=== PATIENT | male | born 1940 | race Caucasian/White ===

== ENCOUNTER 2022-10-03 14:09 | Observation (INO) | payer OTHER, SELFPAY ==
[2022-10-03] VITALS (17 sets, daily range): BP systolic 150–216; BP diastolic 57–94; PULSE 57–93; RESP 14–20; TEMP 36.6–36.9; O2SAT 94–100; BMI 31.9
--- NOTE | ~2022-10-03 | CT_ITS ---
EXAMINATION: CTA brain carotid DATE: 10/04/2022 12:01 INDICATION: Cerebrovascular accident. Right hemiparesis. TECHNIQUE: Computed tomographic angiography (CTA) of the head was performed without and with 100 mL O mnipaque-350 intravenous contrast. CTA of the neck was performed with intravenous contrast. Automated exposure control and iterative reconstruction technique were employed. The dose-length product was 1 783.04 mGy-cm. Maximum intensity projection and volume rendered 3D-reconstructions were created by gelacio azevedo technologist on a separate workstation. COMPARISON: Head CT 10/03/2022, brain MRI 10/04/2022 FINDINGS: HEAD CTA: There are old infarcts in the left thalamus, bilateral basal ganglia, and posterior left fr ontal lobe. There is an acute infarct in posterior limb left internal capsule. There is no intracrani al hemorrhage or abnormal mass lesion. There are scattered areas of low attenuation in the cerebral w pato matter. The ventricles are normal in size. There is mild mucosal thickening in the ethmoid sinus es. The mastoid air cells are normal. The orbits are normal. The vertebral arteries are codominant. T here is no significant stenosis of basilar artery or the posterior cerebral arteries. There is modera te stenosis of supraclinoid right internal carotid artery. There is no significant stenosis of intrac ranial left internal carotid artery. There is no significant stenosis of the anterior or middle cereb ral arteries. Anterior communicating artery is normal. The posterior communicating arteries are nabil l. There is no aneurysm. NECK CTA: There is mild emphysema. There are no pathologically enlarged lymph nodes. There is no sign ificant stenosis of the vertebral arteries. There is plaque in the proximal internal carotid arteries . There is 37% stenosis of the proximal right internal carotid artery relative to normal distal arter y lumen diameter (NASCET criteria). There is 66% stenosis of the proximal left internal carotid arter y relative to normal distal artery lumen diameter. There is mild cervical spondylosis. There is a chr onic compression fracture of T4. There is mild thoracic spondylosis. IMPRESSION: 1. Acute infarct in posterior limb left internal capsule. 2. 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 3. Moderate nonspecific cerebral white matter disease, which likely represents chronic small vessel i schemic disease. 4. Focal moderate stenosis of the supraclinoid right internal carotid artery. 5. 37% stenosis of the proximal right internal carotid artery relative to normal distal artery lumen diameter (NASCET criteria). 6. 66% stenosis of the proximal left internal carotid artery relative to normal distal artery lumen d iameter. Reviewed, dictated and finalized at location A. IMPRESSION: 1. Acute infarct in posterior limb left internal capsule. 2. 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 3. Moderate nonspecific cerebral white matter disease, which likely represents chronic small vessel ischemic disease. 4. Focal moderate stenosis of the supraclinoid right internal carotid artery. 5. 37% stenosis of the proximal right internal carotid artery relative to nabil l distal artery lumen diameter (NASCET criteria). 6. 66% stenosis of the proximal left internal carotid artery relative to normal distal artery lumen diameter.
--- NOTE | ~2022-10-03 | MR_ITS ---
EXAMINATION: MR brain/brain stem wo/w con DATE: 10/04/2022 08:20 INDICATION: Cerebrovascular accident. Right hemiparesis. Slurred speech. TECHNIQUE: Magnetic resonance imaging (MRI) of the brain and brainstem was performed without and with 20 mL MultiHance intravenous contrast. COMPARISON: Head CT 10/03/2022 FINDINGS: There is an acute infarct in posterior limb left internal capsule. There is no intracranial hemorrhage or abnormal mass lesion. There are old infarcts in the left thalamus and bilateral basal ganglia. There are scattered areas of nonspecific increased T2-weighted signal intensity in the cereb ral white matter. There is a small old infarct in posterior left frontal lobe. The ventricles are nor mal in size. The orbits are normal. The paranasal sinuses are clear. There is a small left mastoid ef fusion. IMPRESSION: 1. Acute infarct in posterior limb left internal capsule. 2. 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 3. Moderate nonspecific cerebral white matter disease, which likely represents chronic small vessel i schemic disease. Reviewed, dictated and finalized at location D. IMPRESSION: 1. Acute infarct in posterior limb left internal capsule. 2. 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 3. Moderate nonspecific cerebral white matter disease, which likely represents chronic small vessel ischemic disease.
--- NOTE | ~2022-10-03 | US_ITS ---
EXAMINATION: US carotid duplex BI DATE: 10/04/2022 09:12 INDICATION: Acute infarct in left internal capsule. TECHNIQUE: Grayscale, color Doppler, and pulsed Doppler images of the cervical carotid arteries were obtained. The degree of vessel stenosis is placed in one of the following categories: normal, <50%, 5 0-69%, >=70% but less than near-occlusion, near-occlusion, or total occlusion. Note that percent sten osis relative to normal distal artery lumen diameter is indirectly measured from velocity measurement s as described by Serafin, et al. Radiology 2003; 229:340-346. COMPARISON: None. FINDINGS: RIGHT: The right common carotid artery (CCA) peak systolic velocity (PSV) is 103 cm/s. The right internal ca rotid artery (ICA) PSV is 151 cm/s. The right ICA end-diastolic velocity (EDV) is 14 cm/s. The right ICA/CCA PSV ratio is 1.5. Grayscale and color Doppler images yield an estimate of <50% diameter reduc tion from plaque in the ICA. There is antegrade flow in the right vertebral artery. LEFT: The left CCA PSV is 127 cm/s. The left ICA PSV is 220 cm/s. The left ICA EDV is 17 cm/s. The left ICA /CCA PSV ratio is 1.7. Grayscale and color Doppler images yield an estimate of >=50% diameter reducti on from plaque in the ICA. There is antegrade flow in the left vertebral artery. IMPRESSION: 1. <50% stenosis in the right internal carotid artery. 2. 50-69% stenosis in the left internal carotid artery. Reviewed, dictated and finalized at location D.
--- NOTE | ~2022-10-03 | CT_ITS ---
EXAMINATION: CT brain wo con DATE: 10/03/2022 15:21 INDICATION: right sided weakness, AMS . TECHNIQUE: Computed tomography (CT) of the head was performed without intravenous contrast. The mA wa s adjusted according to patient size. Iterative reconstruction technique was employed. The dose-lengt h product was 681.00 mGy-cm. COMPARISON: None. FINDINGS: No acute intracranial hemorrhage or extra-axial fluid collection. No hydrocephalus, mass, or herniation. No acute ischemic infarct. Unremarkable dural venous sinus attenuation. No acute osseous abnormality. The aerated spaces are clear. Moderate atrophy and chronic white matter change. Atherosclerotic intracranial calcification. Old foc al left periventricular white matter infarct. Old lacunar infarcts involving the right caudate head a nd left basal ganglia/thalamus. IMPRESSION: No acute intracranial process. Reviewed, dictated and finalized at location K.
--- NOTE | ~2022-10-03 | XR_ITS ---
EXAMINATION: XR chest 1V portable Exam Date/Time: 10/03/2022 14:52 CDT HISTORY: AMS, right sided weakness, HX OPEN HEART 2004 Comparison: None available. RESULT: Lines, tubes, and devices: Fractured superior sternotomy wire. Mediastinal surgical clips. Lungs and pleura: Streaky left lower lung opacities, likely atelectasis/scar. Cardiomediastinal silhouette: Stable. Other: No acute osseous or upper abdominal finding. IMPRESSION: No acute cardiopulmonary process. Reviewed, dictated and finalized at location K.
--- NOTE | 2022-10-03 14:17 | ECG_ITS ---
Measurements Intervals [place] Rate: 56 P: 40 RI: 168 QRS: 69 QRSD: 111 T: 94 QT: 415 QTc: 401 Interpretive Statements SINUS BRADYCARDIA WITH OCCASIONAL VENTRICULAR PREMATURE COMPLEXES MODERATE INTRAVENTRICULAR CONDUCTION DELAY [105+ ms QRS DURATION, 80+ ms Q/S IN V1/V2, NO Q AND 60+ ms R IN I/aVL/V5/V6] NO PREVIOUS ECG AVAILABLE FOR COMPARISON Electronically Signed On 10-04-2022 11:51:14 CDT by Nkechi Horn M.D.
[2022-10-03 14:44] LABS: Basophils Absolute Auto 0.1 K/mm3 (0.0-0.1); Basophils Percent Auto 0.6 % (0.2-1.2); Eosinophils Absolute Auto 0.8 K/mm3 (0-0.3); Eosinophils Percent Auto 9.8 % (0-4.4); Hematocrit 46.5 % (42.0-52.0); Hemoglobin 15.6 g/dL (14.0-18.0); Immature Granulocyte Absolute 0.03 K/mm3 (0.00-0.031); Immature Granulocyte Percent A 0.4 % (0-0.5); Lymphocytes Absolute Auto 2.42 K/mm3 (0.9-3.2); Lymphocytes Percent Auto 30.3 % (18.3-44.2); Mean Corpuscular HGB Conc 33.5 g/dl (32-36); Mean Corpuscular Hemoglobin 31.6 pg (26-34); Mean Corpuscular Volume 94.1 fl (80-100); Mean Platelet Volume 11.4 fl (7.4-10.4); Monocytes Absolute Auto 0.7 K/mm3 (0.1-0.6); Monocytes Percent Auto 8.9 % (2.6-8.5); Platelet Count Result 144 k/mm3 (150-375); Red Blood Count 4.94 M/mm3 (4.6-6.20)
[2022-10-03 14:56] LABS: Alanine Aminotransferase 25 U/L (6-50); Albumin Level 4.1 g/dL (3.5-5.1); Alkaline Phosphatase 60 U/L (38-126); Anion Gap 5 mmol/L (8-16); Aspartate Amino Transferase 24 U/L (17-59); Bilirubin,Total 0.6 mg/dL (0.2-1.3); Blood Urea Nitrogen 30 mg/dL (9-20); Calcium 9.2 mg/dL (8.4-10.2); Carbon Dioxide 29 mmol/L (22-30); Chloride 101 mmol/L (98-107); Estimated CRCL calculation 39 ml/min; Estimated Glomerular Filt Rate 42; Glucose 157 mg/dL (65-110); Potassium 4.3 mmol/L (3.4-5.0); Sodium 135 mmol/L (137-145)
[2022-10-03 15:07] LABS: Troponin I < 0.012 ng/mL (0.000-0.034)
[2022-10-03 15:14] LABS: INR 1.1; Partial Thromboplastin Time 26.4 SECONDS (22.3-36.8); Prothrombin Time 13.3 Seconds (11.1-14.7)
--- NOTE | 2022-10-03 15:42 | ED.NEUROSD ---
HPI - Neuro Symptoms/Deficit General Chief Complaint: Neuro Symptoms/Deficit Stated Complaint: AMS, RIGHT side weakness (LKN yesterday) Time Seen by Provider: 10/03/22 14:59 Source: patient and family Mode of arrival: ambulatory Limitations: no limitations History of Present Illness HPI Narrative: 82-year-old with a history of hypertension, diabetes, hypercholesterolemia brought in by his daughter with complaints of slurred speech on and off since Tuesday. Patient's daughter mentions that on Tuesday evening she called him his speech was slurred and she thought he just woke up from sleep, called couple hours later and it was clearly shows that she has again went to check on him today noticed mild right-sided facial droop and drooling associated with with slurred speech. He denies any headache. He denies any weakness on any particular side. Onset (ago): day(s) (2) Timing confirmed by: family member Location: right face History of same: Yes Severity: mild Quality: intermittent Relieving factors: none Exacerbating factors: none Associated symptoms: denies other symptoms Review of Systems Review of Systems: All systems reviewed & are unremarkable except as noted in HPI and below Constitutional: Constitutional: Reports no additional constitutional complaints Eyes: Eyes: Reports no additional eye complaints ENT: Reports system reviewed and no additional complaints, except as documented Cardiovascular: Cardiovascular: Reports no additional cardiovascular complaints Respiratory: Respiratory: Reports no additional respiratory complaints Musculoskeletal: Musculoskeletal: Reports no additional musculoskeletal complaints Neurologic: Reports as per HPI Psychiatric: Psychiatric: Reports no additional psychiatric complaints Exam Narrative: GENERAL: Well-appearing, well-nourished, and in no acute distress. HEAD: Normocephalic, atraumatic. EYES: PERRLA and EOMI. ENT: Nares clear, no rhinorrhea or epistaxis. Mucous membranes moist. NECK: Supple. CHEST: Clear to auscultation. No respiratory distress. HEART: Regular rate and rhythm. No murmur heard. Normal peripheral pulses. ABDOMEN: Soft, nontender, nondistended, normal active bowel sounds. EXTREMITIES: Normal range of motion. No edema. SKIN: Warm, dry, no rash. NEURO: No focal deficits. Alert and oriented x3. Very subtle facial droop on the right PSYCH: Normal mood and affect. Course Course Emergency Course: Patient upon arrival is wide awake alert answers all the questions appropriately. Patient CT of the head was performed which did not show any evidence of acute stroke or bleed his lab work looks unremarkable we will admit him to the hospital for further work-up. Discussed with Dr. Ward will see the patient in consult Vital Signs Vital signs: Vital Signs Temperature 36.6 C 10/03/22 14:16 Pulse Rate 58 L 10/03/22 14:16 Respiratory Rate 20 10/03/22 14:16 Blood Pressure 216/61 H 10/03/22 14:16 Pulse Oximetry 100 10/03/22 14:16 Oxygen Delivery Room Air 10/03/22 14:16 Temperature 36.6 C 10/03/22 14:16 Pulse Rate 58 L 10/03/22 14:16 Respiratory Rate 20 10/03/22 14:16 Blood Pressure 216/61 H 10/03/22 14:16 Pulse Oximetry 100 10/03/22 14:16 Oxygen Delivery Room Air 10/03/22 14:16 MDM - Neuro Symptoms/Deficit MDM Narrative Medical decision making narrative: 82-year-old with a history of diabetes, hypercholesterolemia having slurred speech. We will do a stroke work-up Differential Diagnosis Differential diagnosis: Likely cerebrovascular accident and transient cerebral ischemia Medical Records Attestation: I reviewed the patient's medical records. Lab Data Attestation: I reviewed the patient's lab results. 10/03/22 14:33 10/03/22 14:32 Labs: Lab Results 10/03/22 10/03/22 10/03/22 Range/Units 14:32 14:32 14:33 WBC 8.0 (4.5-10.0) K/mm3 RBC 4.94 (4.6-6.20) M/mm3 Hgb 15.6 (14.0-18.0
--- NOTE | 2022-10-03 16:47 | PM.IMHP ---
H&P: HPI History of Present Illness Date/Time: 10/03/22 16:47 Chief Complaint: Neurological symptoms/deficit Narrative: This is a 82-year-old male patient who has a history of hypertension, diabetes, and hyperlipidemia. The patient was brought in by his daughter due to complaining of slurred speech on and off since this past Tuesday. The patient's daughter called him on Tuesday noticed that his speech was slurred and thought that maybe the patient had just awoken from a nap. A couple hours later his speech was clear. Today the patient's speech was slurred again and the daughter went to check on him and noticed that he had some mild right-sided facial droop and was drooling with the slurred speech. The patient also complained of some right upper and right lower extremity weakness. At the time of my assessment the patient's speech was clear but slow. The daughter noted that his speech is not typically slow like that. Sodium 135. Creatinine 1.6 with no previous labs for comparison. Patient's blood sugars 251. Head CT was read as no acute intracranial process. Chest x-ray shows no acute cardiopulmonary process. The patient is being admitted to observation status on the date of service of 10/03/2022. Review of Systems Review of Systems: All systems reviewed & are unremarkable except as noted in HPI and below Constitutional: Constitutional: Reports as per HPI and Reports no additional constitutional complaints Eyes: Eyes: Reports as per HPI and Reports no additional eye complaints ENT: Reports system reviewed and no additional complaints, except as documented and Reports Normal hearing present Cardiovascular: Cardiovascular: Reports no additional cardiovascular complaints Respiratory: Respiratory: Reports no additional respiratory complaints and Reports no additional respiratory complaints Gastrointestinal: Gastrointestinal: Reports as per HPI and Reports no additional gastrointestinal complaints Musculoskeletal: Musculoskeletal: Reports no additional musculoskeletal complaints Integumentary/Breasts: Skin/Breast: Reports system reviewed and no additional complaints, except as docu and Reports as per HPI Neurologic: Reports system reviewed and no additional complaints, except as documented, Reports as per HPI and Reports Normal hearing present Psychiatric: Psychiatric: Reports no additional psychiatric complaints and Reports as per HPI Endocrine: Endocrine: Reports no additional endocrine complaints Hematologic/Lymphatic: Hematologic/Lymphatic: Reports no additional hematologic/lymphatic complaints Allergic/Immunologic: Allergic/Immunologic: Reports no additional allergic/immunologic complaints [facility] Past Medical History Medical History (Updated 10/03/22 @ 21:17 by Marce Glass NP) Chronic GERD DM2 (diabetes mellitus, type 2) Hyperlipidemia Hypertension Surgical History Surgical History (Updated 10/03/22 @ 16:51 by Marce Glass NP) S/P CABG x 5 Family History Family History (Updated 10/03/22 @ 16:52 by Marce Glass NP) Sibling Hypertension Heart disease Diabetes mellitus Daughter Cerebrovascular accident Social History Social History (Updated 10/03/22 @ 21:09 by Marce Glass NP) Social History: He has 2 daughters and lives with his step son . He is . Code status full code Smoking packs per day: 1.5 Smoking cigarettes per day: 30.0 Years smoked: 30 Smoking pack-years: 45.00 Smoking status: Current every day smoker Tobacco type: cigarettes Meds Home Medications and Allergies Home Medications Medication Instructions Recorded Confirmed Type amlodipine 10 mg tablet 10 mg PO DAILY 10/03/22 History aspirin 81 mg tablet 81 mg PO DAILY 10/03/22 History cetirizine 10 mg tablet 10 mg PO DAILY 10/03/22 History chlorthalidone 50 mg tablet 50 mg PO DAILY 10/03/22 History cholecalciferol (vitamin D3) 25 25 mcg PO DAILY 10/03/22 History mcg (1,000
--- NOTE | 2022-10-03 19:57 | ADMGEN ---
This patient, Jonathan Trinh, was admitted to Medical Room 347-. Patient/family oriented to hospital policies and general routines including ID bracelet, bed and alarms, visiting hours, pain management, procedures, bathroom and other care routines, personal items, smoking policy, room service/diet, and visiting hours. Information on how to activate the Rapid Response Team has been discussed. Patient/Family are encouraged to report perceived risks to care and to ask questions if they do not understand what they are told or what they should do.
[2022-10-03 20:45] LABS: Glucose Point of Care 251 mg/dl (65-105)
[2022-10-03] MEDS: SODIUM CHLORIDE 0.9% IV 1,000 ML 75 ML IV CONT (21:00)
[2022-10-03] MEDS: INSULIN ASPART (*BKC) 100 UNITS/ML SUB-Q (23:04)
[2022-10-04] VITALS: PULSE 55
[2022-10-04 04:00] VITALS: PULSE 60
[2022-10-04 05:40] VITALS: BP 167/88; PULSE 67; RESP 16; TEMP 36.8; O2SAT 97
[2022-10-04 06:29] LABS: Basophils Absolute Auto 0.1 K/mm3 (0.0-0.1); Basophils Percent Auto 0.7 % (0.2-1.2); Eosinophils Absolute Auto 0.7 K/mm3 (0-0.3); Eosinophils Percent Auto 9.9 % (0-4.4); Hematocrit 44.2 % (42.0-52.0); Hemoglobin 14.6 g/dL (14.0-18.0); Immature Granulocyte Absolute 0.03 K/mm3 (0.00-0.031); Immature Granulocyte Percent A 0.4 % (0-0.5); Immature Platelet Fraction Pct 9.5 % (0.9-11.2); Lymphocytes Absolute Auto 2.03 K/mm3 (0.9-3.2); Lymphocytes Percent Auto 29.7 % (18.3-44.2); Mean Corpuscular Hemoglobin 31.2 pg (26-34); Mean Corpuscular Volume 94.4 fl (80-100); Mean Platelet Volume 11.8 fl (7.4-10.4); Monocytes Absolute Auto 0.6 K/mm3 (0.1-0.6); Monocytes Percent Auto 8.6 % (2.6-8.5); Neutrophils Absolute Auto 3.5 K/mm3 (1.3-6.7); Neutrophils Percent Auto 50.7 % (45.5-73.1); Platelet Count Result 127 k/mm3 (150-375); Red Blood Count 4.68 M/mm3 (4.6-6.20); Red Cell Distribution Width 12.6 % (11.5-14.5); White Blood Count 6.8 K/mm3 (4.5-10.0)
[2022-10-04 06:38] LABS: Anion Gap 5 mmol/L (8-16); Blood Urea Nitrogen 25 mg/dL (9-20); Calcium 9.1 mg/dL (8.4-10.2); Carbon Dioxide 29 mmol/L (22-30); Chloride 102 mmol/L (98-107); Estimated CRCL calculation 45 ml/min; Estimated Glomerular Filt Rate 49; Glucose 140 mg/dL (65-110); Magnesium 1.5 mg/dL (1.6-2.3); Potassium 4.1 mmol/L (3.4-5.0); Sodium 136 mmol/L (137-145)
[2022-10-04 06:43] LABS: Hemoglobin A1C 7.6 % (<5.7)
--- NOTE | 2022-10-04 08:05 | PCPTNOTE ---
attempted PT eval at 800, pt was out of room having MRI;
--- NOTE | 2022-10-04 08:42 | PCOTNOTE ---
Attempted to see pt. for occupational therapy evaluation. Pt. away from room at this time for testing, nursing aware. Following
[2022-10-04 08:56] LABS: Glucose Point of Care 166 mg/dl (65-105)
[2022-10-04 11:00] VITALS: PULSE 116; RESP 16; O2SAT 94
[2022-10-04] MEDS: ASPIRIN 81 MG CHEWABLE TABLET 324 MG PO (11:01)
--- NOTE | 2022-10-04 11:10 | WPDNEURCNPN ---
Consult date: 10/04/22 HPI: Jonathan Trinh is a 82 year old maleAdmitted to the hospital through the emergency room for the complaints of right sided weakness since yesterday patient was seen by the ER physician at 2:59 p.m. on October 03, 2022 and he arrived to the Emergency Room ambulatory with a history of 1. Hypertension 2. Diabetes mellitus 3. Hypercholesteremia was brought to the ER by his daughter with complaints of slurred speech on and off since Tuesday she mention to the ER that she called him on Tuesday his speech was slurred and he thought he just woke up from sleep she call couple of hours later and it was clearly showing that she has checked him on the day of visit to the ER and noted mild right-sided facial droop and drooling along with slurred speech but without any associated headaches on initial evaluation in the emergency room his vital signs were stable except the blood pressure 216/61 with a pulse ox was 100 his CBC was normal BMP was mildly abnormal with a sodium 135 blood sugar 157 and BUN 30 initial chest x-ray was negative CT scan of the head was negative EKG with bradycardia. MRI of the brain documented acute infarct in the posterior limb left internal capsule old infarcts involving left thalamus bilateral basal ganglia and posterior left frontal lobe in addition to moderate nonspecific white matter disease likely representing chronic chronic ischemic changes. And the Doppler study of the carotid documented less than 50% stenosis in the right internal carotid artery but 50 to 69% stenosis in left internal carotid artery. Review of Systems Review of Systems: All systems reviewed & are unremarkable except as noted in HPI and below [facility] [place] Past Medical History Medical History (Updated 10/03/22 @ 21:17 by Marce Glass NP) Chronic GERD DM2 (diabetes mellitus, type 2) Hyperlipidemia Hypertension Surgical History Surgical History (Updated 10/03/22 @ 16:51 by Marce Glass NP) S/P CABG x 5 Family History Family History Sibling Hypertension Heart disease Diabetes mellitus Daughter Cerebrovascular accident Social History Social History (Updated 10/03/22 @ 21:09 by Marce Glass NP) Social History: He has 2 daughters and lives with his step son . He is . Code status full code Smoking packs per day: 1.5 Smoking cigarettes per day: 30.0 Years smoked: 30 Smoking pack-years: 45.00 Smoking status: Current every day smoker Tobacco type: cigarettes Alcohol intake: never Substance use: never Lack of Transportation: No Lack of Food: Never True Current Housing: I Have Housing Concerned About Future Housing: No Difficulty Paying Gas/Electric Bills: No Difficulty Paying for Meds: No Currently Unemployed: No Education: High School Diploma/GED Difficulty w/ Childcare or Family Care: No Spiritual care concerns: No Meds Home Medications and Allergies Home Medications Medication Instructions Recorded Confirmed Type acetaminophen 500 mg tablet 500 mg PO Q6H PRN Pain (Scale 10/03/22 10/03/22 History (Tylenol Extra Strength) Score 1-3) amlodipine 10 mg tablet 10 mg PO QHS 10/03/22 10/03/22 History aspirin 81 mg tablet 81 mg PO DAILY 10/03/22 10/03/22 History cetirizine 10 mg tablet 10 mg PO QHS 10/03/22 10/03/22 History chlorthalidone 50 mg tablet 50 mg PO DAILY 10/03/22 10/03/22 History cholecalciferol (vitamin D3) 25 25 mcg PO DAILY 10/03/22 10/03/22 History mcg (1,000 unit) capsule glipizide 5 mg tablet 5 mg PO DAILY 10/03/22 10/03/22 History lisinopril 40 mg tablet 40 mg PO QAM 10/03/22 10/03/22 History magnesium oxide 400 mg PO DAILY 10/03/22 10/03/22 History metoprolol tartrate 50 mg tablet 50 mg PO BID 10/03/22 10/03/22 History omeprazole 20 mg tablet,delayed 20 mg PO BID 10/03/22 10/03/22 History release pravastatin 40 mg tablet 40 mg PO 3XW 10/03/22 10/03/22 History spironolactone 25
--- NOTE | 2022-10-04 11:17 | PM.IMPN ---
Progress Note: A&P Assessment and Plan (1) Hyperlipidemia: Code(s): E78.5 - Hyperlipidemia, unspecified Status: Acute Assessment and Plan: Order lipid panel Continue home statin (2) DM2 (diabetes mellitus, type 2): Code(s): E11.9 - Type 2 diabetes mellitus without complications Status: Acute Assessment and Plan: Watch sugars in hospital Accuchecks SSI Continue meal time insulin (3) Chronic GERD: Code(s): K21.9 - Gastro-esophageal reflux disease without esophagitis Status: Acute Assessment and Plan: Continue PPI Chronic and stable (4) Hypertension: Code(s): I10 - Essential (primary) hypertension Status: Acute Assessment and Plan: Watch bp meds BP medications to continue in hospital (5) Cerebrovascular accident: Code(s): I63.9 - Cerebral infarction, unspecified Status: Acute Assessment and Plan: Continue home ASA add plavix to regime Stroke work up - MRI , US carotids, ECHO Neurology consulted PT/OT/ST Plan H/ O of Tobacco abuse Long discussion about quitting smoking Hopeful DC tomorrow home with home health services Subjective Date/time seen: 10/04/22 11:17 2-year-old male patient who has a history of hypertension, diabetes, and hyperlipidemia.? The patient was brought in by his daughter due to complaining of slurred speech on and off since this past Tuesday.? The patient's daughter called him on Tuesday noticed that his speech was slurred and thought that maybe the patient had just awoken from a nap. Pt had stroke work up here which shows new infarct, with some old infarcts as well Pt had US of carotids which are negative echo result is awaiting Pt has history of HTN and DM and is a smoker advised to quit smoking Review of Systems Review of Systems: R sided mild weakness in leg more than arm Speech slurred Exam Const: General: cooperative, healthy appearing, comfortable, no acute distress, well developed, alert, awake, Physically active, average body habitus, well nourished and overweight Resp: Effort & Inspection: normal respiratory effort Auscultation: clear to auscultation bilaterally Cardio: Palpation: normal PMI Rate: regular rate Rhythm: regular rhythm Heart sounds: S1 normal heart sound present and S2 normal heart sound present Peripheral pulses: Peripheral pulses 2+ throughout GI: Inspection: normal to inspection Auscultation: normal bowel sounds Rectal Exam: deferred Back/Spine/Pelvis: Cervical Spine: cervical ROM normal Skin: General skin exam: normal color Lesions: no lesions Rashes: no rashes Trauma: no lacerations or abrasions Wounds: no wounds Hair: normal Nails: normal Neuro: Other: The patient has mild right facial droop and mild weakness to right upper and right lower extremity. Speech not so clear Extrem: General: normal to inspection Right upper extremity: normal to inspection and shoulder/upper arm Left upper extremity: normal to inspection and shoulder/upper arm Right lower extremity: edema Details: 2+ Left lower extremity: edema Details: 2+ Objective Data Vital Signs Vital Signs: Vital Signs - 24 hr 10/03/22 14:16 10/03/22 15:02 10/03/22 15:34 Temperature 36.6 C Pulse Rate 58 L 72 80 Respiratory Rate 20 14 16 Blood Pressure 216/61 H 171/57 H 192/67 H Pulse Oximetry 100 96 99 Oxygen Delivery Room Air 10/03/22 15:47 10/03/22 16:02 10/03/22 16:17 Temperature Pulse Rate 90 93 90 Respiratory Rate 16 14 16 Blood Pressure 177/66 H 180/63 H 173/64 H Pulse Oximetry 98 97 98 Oxygen Delivery 10/03/22 16:45 10/03/22 17:47 10/03/22 18:01 Temperature Pulse Rate 74 70 70 Respiratory Rate 17 15 18 Blood Pressure 150/72 H 176/67 H Pulse Oximetry 97 95 94 Oxygen Delivery 10/03/22 18:02 10/03/22 18:15 10/03/22 18:30 Temperature Pulse Rate 60 61 60 Respiratory Rate 15 16 15 Blood Pressure Pulse Oximetry 97 9
[2022-10-04 12:44] LABS: Glucose Point of Care 213 mg/dl (65-105)
--- NOTE | 2022-10-04 13:01 | PM.DS ---
DS: Admitting Diagnosis Discharge Date 10/04/2022 Admitting Diagnosis Neurological symptoms/deficit DS: Discharge Diagnosis Discharge Diagnosis (1) Hyperlipidemia: Code(s): E78.5 - Hyperlipidemia, unspecified Status: Acute Assessment and Plan: Continue home statin (2) DM2 (diabetes mellitus, type 2): Code(s): E11.9 - Type 2 diabetes mellitus without complications Status: Acute Assessment and Plan: continue oral hypoglycemic agents (3) Chronic GERD: Code(s): K21.9 - Gastro-esophageal reflux disease without esophagitis Status: Acute Assessment and Plan: Continue PPI Chronic and stable (4) Hypertension: Code(s): I10 - Essential (primary) hypertension Status: Acute Assessment and Plan: continue home BP medications (5) Cerebrovascular accident: Code(s): I63.9 - Cerebral infarction, unspecified Status: Acute Assessment and Plan: Stroke work up - MRI , US carotids, ECHO completed MRI showed -Acute infarct in posterior limb left internal capsule. 2. Old infarcts involving the left thalamus, bilateral basal ganglia, and posterior left frontal lobe. 3. Moderate nonspecific cerebral white matter disease, which likely represents chronic small vessel ischemic disease. ASA 325 mg po and plavix started Neurology consulted PT/OT/ST Pt can discharge with home health nurses Adviced to quit smoking H/ o of tobacco abuse Pt to follow with vascular surgery he will call for an apt for carotid stenosis ?50-69% stenosis in the left internal carotid artery. Pt to follow with neurology MD in 2-3 weeks time DS: Summary Hospital Course Hospital Course: 82-year-old male patient who has a history of hypertension, diabetes, and hyperlipidemia.? The patient was brought in by his daughter due to complaining of slurred speech on and off since this past Tuesday.? The patient's daughter called him on Tuesday noticed that his speech was slurred and thought that maybe the patient had just awoken from a nap.? A couple hours later his speech was clear.? Today the patient's speech was slurred again and the daughter went to check on him and noticed that he had some mild right-sided facial droop and was drooling with the slurred speech.? The patient also complained of some right upper and right lower extremity weakness.? At the time of my assessment the patient's speech was clear but slow.? The daughter noted that his speech is not typically slow like that.? Sodium 135.? Creatinine 1.6 with no previous labs for comparison.? Patient's blood sugars 251.? Head CT was read as no acute intracranial process. Pt had stroke work up - MRI , US carotids, ECHO completed MRI showed -Acute infarct in posterior limb left internal capsule. 2. Old infarcts involving the left thalamus, bilateral basal ganglia, and posterior left frontal lobe. 3. Moderate nonspecific cerebral white matter disease, which likely represents chronic small vessel ischemic disease. ASA 325 mg po and plavix started Neurology consulted PT/OT/ST Pt can discharge with home health nurses Adviced to quit smoking H/ o of tobacco abuse Pt to follow with vascular surgery he will call for an apt for carotid stenosis ?50-69% stenosis in the left internal carotid artery. Pt to follow with neurology MD in 2-3 weeks time Time Spent with Patient Time attestation: Total time spent providing and/or coordinating discharge services:40 minutes on day of DC Exam Const: General: cooperative, healthy appearing, comfortable, no acute distress, well developed, alert, awake, Physically active, average body habitus, well nourished and overweight Nutritional Appearance: average body habitus, well nourished and overweight Orientation/consciousness: oriented to person, oriented to place, oriented to time and patient oriented x3 Limitations: no limitations HENMT: Head: normal to inspection, No palpable skull fractur
[2022-10-04] MEDS: INSULIN ASPART (*BKC) 100 UNITS/ML SUB-Q (13:05)
[2022-10-04] MEDS: lisinopriL 20 MG TABLET 40 MG PO (13:13)
[2022-10-04] MEDS: PRAVASTATIN SODIUM 20 MG TABLET 40 MG PO (13:13)
[2022-10-04] MEDS: CHLORTHALIDONE 25 MG TABLET 50 MG PO (13:14)
[2022-10-04] MEDS: SPIRONOLACTONE 25 MG TABLET PO (13:14)
[2022-10-04 13:16] VITALS: PULSE 116
[2022-10-04] MEDS: METOPROLOL TARTRATE 50 MG TAB PO (13:16)
[2022-10-04] MEDS: PANTOPRAZOLE 40 MG TABLET PO (13:17)
[2022-10-04] MEDS: CLOPIDOGREL BISULFATE 75 MG TABLET PO (13:17)
--- NOTE | 2022-10-04 13:27 | WPDNEURCNPN ---
Assessment and Plan Assessment and plan (1) Cerebrovascular accident: Code(s): I63.9 - Cerebral infarction, unspecified Status: Acute (2) Left carotid stenosis: Code(s): I65.22 - Occlusion and stenosis of left carotid artery Status: Acute Plan Considering the bihemispheric disease and abnormal Doppler study of the carotid CTA of the brain was obtained which revealed acute infarct in the posterior limb of the left internal capsule, old infarct involving the left thalamus bilateral basal ganglia and posterior left frontal lobe in addition to moderate nonspecific white matter disease, focal moderate stenosis of the supraclinoid right internal carotid artery, 37% stenosis of the proximal right internal carotid artery relatively normal distal and 60 psych % of stenosis of the left internal carotid artery. These findings were discussed with them in front of his family particularly the daughter and they were advised the need to be seen by the vascular surgeon they had 1 in their mind there will be discharged from here to go to that particular physician though we did offer them to choice of going to [facility] or [facility]. In the meantime he will be continued on aspirin 81 mg daily and Plavix 75 mg daily in addition to all his other medication. And I personally inform Dr chang. Consult date: 10/04/22 Reason for consult: 82 years old right-handed male admitted to the hospital through the emergency room for the complaints of right-sided weakness since yesterday. Patient was seen by the ER physician at 2:59 p.m. on October 03 and he arrived to the ER ambulatory with a history of 1. Hypertension 2. Diabetes mellitus 3. Hypercholesteremia he was brought to the ER by his daughter with complaints of slurred speech on and off since Tuesday she mention to the ER physician that she called him on Tuesday his speech was slurred and he thought he just woke up from sleep then she called him a couple of hours later and it was clearly showing. She checked on him on the day of visit the ER and noted mild right-sided facial droop with drooling along with slurred speech but without any associated headache. On initial evaluation in the emergency room his vital signs were stable, the blood pressure was 216/61 with a pulse ox 100, CBC was normal BMP was mildly abnormal with a sodium of 135 blood sugar of 157 and BUN of 30, initial chest x-ray was negative, CT scan of the head was negative, EKG was with bradycardia definitely no atrial fibrillation. MRI of the brain documented acute infarct in the posterior limb of the left internal capsule, and old infarcts involving the left thalamus, bilateral basal ganglia, and posterior left frontal lobe in addition to the moderate nonspecific white matter disease likely representing chronic ischemic changes Doppler study of carotid documented less than 50% stenosis on the right side and 50 to 69% on the left side Review of Systems Review of Systems: All systems reviewed & are unremarkable except as noted in HPI and below PMFSH Past Medical History Medical History (Updated 10/04/22 @ 13:38 by Sky Hardy MD) Chronic GERD DM2 (diabetes mellitus, type 2) Hyperlipidemia Hypertension Surgical History Surgical History (Updated 10/03/22 @ 16:51 by Marce Glass NP) S/P CABG x 5 Family History Family History Sibling Hypertension Heart disease Diabetes mellitus Daughter Cerebrovascular accident Social History Social History (Updated 10/03/22 @ 21:09 by Marce Glass NP) Social History: He has 2 daughters and lives with his step son . He is . Code status full code Smoking packs per day: 1.5 Smoking cigarettes per day: 30.0 Years smoked: 30 Smoking pack-years: 45.00 Smoking status: Current every day smoker Tobacco type: cigarettes Alcohol intake: never Substance use: sandro
--- NOTE | 2022-10-05 14:13 | PC.NURSE ---
Spoke with Dr. Hardy about patients aspirin dose. Family was concerned that the order stated to take 4 of the [address] Hardy said to take one 81 mg ASA and the plavix dose that was ordered daily.
== END 2022-10-04 14:00 | disposition home health service (06) ==
LOC: ANHED 16:27 → ANH3MED 10-04 06:24
PROVIDERS: Emergency Medicine; Nurse Practitioner; Admitting Provider Family Medicine; Emergency Provider Family Medicine; Visit Provider Family Medicine
DX: I63.9 Cerebral infarction, unspecified (principal); R29.707 NIHSS score 7; I65.23 Occlusion and stenosis of bilateral carotid arteries; E78.5 Hyperlipidemia, unspecified; E11.65 Type 2 diabetes mellitus with hyperglycemia; K21.9 Gastro-esophageal reflux disease without esophagitis; I10 Essential (primary) hypertension; R00.1 Bradycardia, unspecified; I45.4 Nonspecific intraventricular block; R90.82 White matter disease, unspecified; F17.210 Nicotine dependence, cigarettes, uncomplicated; Z86.73 Personal history of transient ischemic attack (TIA), and cerebral infarction without residual deficits; Z79.82 Long term (current) use of aspirin; Z79.84 Long term (current) use of oral hypoglycemic drugs; Z79.899 Other long term (current) drug therapy
CPT/HCPCS: 36415; 70450; 70496; 70498; 70553; 71045; 80048; 80053; 82948; 83036; 83735; 84443; 84484; 85025; 85055; 85610; 85730; 92522; 93005; 93880; 97161; 97165; 99285; A9270; A9577; G0378; J1815; J7030; Q9967

== ENCOUNTER 2023-03-13 11:58 | Emergency (ER) | payer OTHER, SELFPAY ==
[2023-03-13 12:06] VITALS: BP 135/95; PULSE 71; RESP 13; TEMP 36.2; O2SAT 98
[2023-03-13 12:35] VITALS: BP 173/66; PULSE 71; RESP 14; O2SAT 99
[2023-03-13 14:22] VITALS: BP 136/58; PULSE 66; RESP 17; O2SAT 98
[2023-03-13 14:24] LABS: Basophils Absolute Auto 0.1 K/mm3 (0.0-0.1); Basophils Percent Auto 0.7 % (0.2-1.2); Eosinophils Absolute Auto 0.3 K/mm3 (0-0.3); Eosinophils Percent Auto 3.6 % (0-4.4); Hematocrit 32.5 % (42.0-52.0); Hemoglobin 10.8 g/dL (14.0-18.0); Immature Granulocyte Absolute 0.06 K/mm3 (0.00-0.031); Immature Granulocyte Percent A 0.7 % (0-0.5); Lymphocytes Absolute Auto 1.56 K/mm3 (0.9-3.2); Lymphocytes Percent Auto 17.2 % (18.3-44.2); Mean Corpuscular HGB Conc 33.2 g/dl (32-36); Mean Corpuscular Volume 96.2 fl (80-100); Mean Platelet Volume 12.1 fl (7.4-10.4); Monocytes Absolute Auto 0.9 K/mm3 (0.1-0.6); Monocytes Percent Auto 9.4 % (2.6-8.5); Neutrophils Absolute Auto 6.2 K/mm3 (1.3-6.7); Neutrophils Percent Auto 68.4 % (45.5-73.1); Platelet Count Result 153 k/mm3 (150-375); Red Blood Count 3.38 M/mm3 (4.6-6.20); White Blood Count 9.1 K/mm3 (4.5-10.0)
[2023-03-13 14:36] LABS: Partial Thromboplastin Time 26.4 SECONDS (22.3-36.8); Prothrombin Time 13.9 Seconds (11.1-14.7)
--- NOTE | 2023-03-13 15:01 | ED.EPISTAXIS ---
HPI - Epistaxis General Chief complaint: Epistaxis Stated complaint: nosebleed Time Seen by Provider: 03/13/23 13:25 History of Present Illness HPI Narrative: This is an 83-year-old male with past history of coronary artery disease on Plavix, who presents emergency department with a nosebleed. The patient states 3 days ago, he began bleeding from both nostrils with blood in the back of the throat. He was seen at an outside hospital with nasal packing placed. He was told that he may remove the nasal packing today. After doing so, he noticed recurrent bleeding from the right nostril. He states he is brought up with significant amount of blood, though he denies chest pain, fatigue, shortness of breath or loss of consciousness. Related Data Home Medications Medication Instructions Recorded Confirmed acetaminophen 500 mg tablet 500 mg PO Q6H PRN 01/22/21 01/22/21 (Tylenol Extra Strength) amlodipine 10 mg tablet 10 mg PO DAILY 01/22/21 01/22/21 aspirin 81 mg tablet,delayed 81 mg PO DAILY 01/22/21 01/22/21 release carboxymethylcellulose sodium 0.5 1 drp EACH EYE 4-6XD PRN 01/22/21 01/22/21 % eye drops cetirizine 10 mg tablet (All Day 10 mg PO DAILY PRN 01/22/21 01/22/21 Allergy (cetirizine)) chlorthalidone 25 mg tablet 25 mg PO DAILY 01/22/21 01/22/21 cholecalciferol (vitamin D3) 25 25 mcg PO DAILY 01/22/21 01/22/21 mcg (1,000 unit) tablet fluticasone propionate 50 1 spray intranasal DAILY 01/22/21 01/22/21 mcg/actuation nasal spray,suspension (Flonase Allergy Relief) glipizide 5 mg tablet 5 mg PO BID 01/22/21 01/22/21 hydrophilic cream applic topical 01/22/21 01/22/21 ketotifen fumarate 0.025 % (0.035 1 drp EACH EYE BID 01/22/21 01/22/21 %) eye drops (Allergy Eye (ketotifen)) lisinopril 40 mg tablet 40 mg PO DAILY 01/22/21 01/22/21 magnesium oxide 400 mg PO DAILY 01/22/21 01/22/21 metoprolol tartrate 50 mg tablet 50 mg PO Q12H 01/22/21 01/22/21 omeprazole 20 mg capsule,delayed 20 mg PO BID 01/22/21 01/22/21 release pravastatin 40 mg tablet 40 mg PO .COMPLEX 01/22/21 01/22/21 spironolactone 25 mg tablet 25 mg PO DAILY 01/22/21 01/22/21 acetaminophen 500 mg tablet 500 mg PO Q6H PRN Pain (Scale 10/03/22 10/03/22 (Tylenol Extra Strength) Score 1-3) amlodipine 10 mg tablet 10 mg PO QHS 10/03/22 10/03/22 cetirizine 10 mg tablet 10 mg PO QHS 10/03/22 10/03/22 chlorthalidone 50 mg tablet 50 mg PO DAILY 10/03/22 10/03/22 cholecalciferol (vitamin D3) 25 25 mcg PO DAILY 10/03/22 10/03/22 mcg (1,000 unit) capsule glipizide 5 mg tablet 5 mg PO DAILY 10/03/22 10/03/22 lisinopril 40 mg tablet 40 mg PO QAM 10/03/22 10/03/22 magnesium oxide 400 mg PO DAILY 10/03/22 10/03/22 metoprolol tartrate 50 mg tablet 50 mg PO BID 10/03/22 10/03/22 omeprazole 20 mg tablet,delayed 20 mg PO BID 10/03/22 10/03/22 release pravastatin 40 mg tablet 40 mg PO 3XW 10/03/22 10/03/22 spironolactone 25 mg tablet 25 mg PO DAILY 10/03/22 10/03/22 Allergies Allergy/AdvReac Type Severity Reaction Status Date / Time No Known Allergies Allergy Verified 03/13/23 12:13 Review of Systems Review of Systems: CONSTITUTIONAL: Denies fever, chills, or sweats. ENT: Right-sided epistaxis denies rhinorrhea, congestion, sore throat, or otalgia. CARDIOVASCULAR: Denies chest pain, palpitations, or edema. RESPIRATORY: Denies cough or dyspnea. GASTROINTESTINAL: Denies abdominal pain, nausea, vomiting, or diarrhea. GENITOURINARY: Denies dysuria or hematuria. SKIN: Denies rash or itching. MUSCULOSKELETAL: Denies back pain, joint pain, or myalgia. NEUROLOGIC: Denies headache, numbness, dizziness, or weakness. PSYCHIATRIC: Denies anxiety or depression. PENDING SALE TO [facility] Past Medical History Medical History Chronic GERD DM2 (diabetes mellitus, type 2) Hyperlipidemia Hypertension Surgical History Surgical History S/P CABG x 5 Family His
[2023-03-13 16:03] VITALS: PULSE 87
[2023-03-13] MEDS: METOPROLOL TARTRATE 50 MG TAB PO (16:03)
[2023-03-13] MEDS: oxyCODONE/ACETAMINOPHEN (*CRX) 5-325 MG TABLET 1 TABLET PO (16:04)
[2023-03-13 16:36] VITALS: BP 181/99; PULSE 79; RESP 18; O2SAT 97
== END 2023-03-13 16:39 | disposition home or self-care (01) ==
PROVIDERS: Emergency Provider Preventive Medicine Aerospace Medicine
DX: R04.0 Epistaxis (principal); F17.210 Nicotine dependence, cigarettes, uncomplicated; K21.9 Gastro-esophageal reflux disease without esophagitis; E11.9 Type 2 diabetes mellitus without complications; E78.5 Hyperlipidemia, unspecified; I10 Essential (primary) hypertension
CPT/HCPCS: 30905; 36415; 85025; 85610; 85730; 99283; A9270

== ENCOUNTER 2024-08-28 10:37 | Emergency (ER) | payer OTHER, SELFPAY ==
--- NOTE | ~2024-08-28 | XR_ITS ---
EXAMINATION: XR knee RT 3V DATE: 08/28/2024 17:16 INDICATION: Right knee pain. Fall. TECHNIQUE: 3 views of right knee were obtained. COMPARISON: None. FINDINGS: Alignment is normal. No fracture. There is mild tricompartmental osteoarthritis. 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 No knee joint effusion. IMPRESSION: 1. Mild right knee osteoarthritis. Reviewed, dictated and finalized at location A. OMER CARE PROFESSIONAL
--- NOTE | ~2024-08-28 | CT_ITS ---
EXAMINATION: CT brain wo con DATE: 08/28/2024 14:24 INDICATION: Head injury. TECHNIQUE: Computed tomography (CT) of the head was performed without intravenous contrast. The mA wa s adjusted according to patient size. Iterative reconstruction technique was employed. The dose-lengt h product was 605.33 mGy-cm. COMPARISON: Head CT 10/04/2022 FINDINGS: There are old infarcts in the right basal ganglia and bilateral thalami. There are scattere d areas of low attenuation in the cerebral white matter. There is no intracranial hemorrhage, acute i nfarction, or abnormal intracranial mass lesion. The ventricles are normal in size. The orbits are no rmal. There is mild mucosal thickening in the ethmoid sinuses. There is a trace left mastoid effusion . IMPRESSION: 1. 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 2. Moderate nonspecific cerebral white matter disease, which likely represents chronic small vessel i schemic disease. Reviewed, dictated and finalized at location A. LESS FIELD TECHNICIAN IMPRESSION: 1. 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 2. Moderate nonspecific cerebral white matter disease, which likely represents chronic small vessel ischemic disease.
--- NOTE | ~2024-08-28 | CT_ITS ---
EXAMINATION: CT cervical spine wo con DATE: 08/28/2024 14:24 INDICATION: Head injury. TECHNIQUE: Computed tomography (CT) of the cervical spine was performed without intravenous contrast. Automated exposure control and iterative reconstruction technique were employed. The dose-length pro duct was 433.68 mGy-cm. COMPARISON: None FINDINGS: There is mild emphysema. There is mild scarring at right lung apex. 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 There is 10 degrees levoscoliosis of cervical spine. Vertebral body heights are nor mal. There is severely decreased disc height at C3-C4 and mildly decreased disc height at C4-C5. The following disc levels are specifically discussed: C2-C3: There is mild bilateral uncovertebral joint osteoarthritis. There is severe right and mild lef t facet joint osteoarthritis. There is mild right neural foraminal stenosis. There is no central kevin l stenosis. C3-C4: There is severe right and mild left uncovertebral joint osteoarthritis. There is severe bilate ral facet joint osteoarthritis. There is moderate right and mild left neural foraminal stenosis. Ther e is mild central canal stenosis. C4-C5: There is mild bilateral uncovertebral joint osteoarthritis. There is severe bilateral facet ivonne int osteoarthritis. There is mild bilateral neural foraminal stenosis. There is mild central canal st enosis. C5-C6: There is mild bilateral uncovertebral joint osteoarthritis. There is severe bilateral facet ivonne int osteoarthritis. There is mild bilateral neural foraminal stenosis. There is mild central canal st enosis. C6-C7: There is no uncovertebral joint osteoarthritis. There is severe bilateral facet joint osteoart hritis. There is mild bilateral neural foraminal stenosis. There is mild central canal stenosis. C7-T1: There is no uncovertebral joint osteoarthritis. There is moderate right and severe left facet joint osteoarthritis. There is mild bilateral neural foraminal stenosis. There is no central canal st enosis. IMPRESSION: 1. No fracture. 2. Severe cervical spondylosis. Reviewed, dictated and finalized at location A. S DEPARTMENT MANAGER
[2024-08-28 10:50] VITALS: BP 128/50; PULSE 72; RESP 18; TEMP 36.3; O2SAT 100
--- OUTSIDE RECORDS SUMMARY | 2024-08-28 12:27 | XMS_ITS | CONTINUITY OF CARE DOCUMENT ---
Author Name luciano wolf Address Unknown Organization [facility] Address [address] [place] [address] Phone [phone] Care Team Providers Care Tool Storage Attendant Name Role Phone Brock Olea MD Unavailable [phone] Brock Olea MD Unavailable [phone] INSURANCE PROVIDERS Payer name Policy type / Coverage type [place] [employer] party [place] [employer] Commercial insurance company [facility] [id number] [facility] Other [id number]
[2024-08-28 13:10] VITALS: BP 124/65; PULSE 76; RESP 20; O2SAT 100
--- NOTE | 2024-08-28 15:48 | ED_ITS ---
HPI - Fall General Chief Complaint: Fall Stated Complaint: FALL Time Seen by Provider: 08/28/24 15:41 Source: patient History of Present Illness HPI Narrative: 84 YEARS OLD WHITE MALE CAME FROM HOME BY AMBULANCE BECAUSE OF A FALL. PATIENT REPORT WAS TRIED TO STAND, HIS RIGHT KNEE GAVE OUT AND FELL ON HIS RIGHT KNEE. DENIES HEAD INJURY OR NECK INJURY OR BACK PAIN. HISTORY OF POOR PERIPHERAL CIRCULATION RIGHT LOWER LEG SCHEDULED FOR STENT PLACEMENT, HISTORY OF PERIPHERAL NEUROPATHY BILATERALLY, ADVANCED ARTHRITIS BILATERAL Related Data Home Medications ?Medication ?Instructions ?Recorded ?Confirmed ?Last Taken ?Type acetaminophen 500 mg tablet 500 mg PO Q6H PRN 01/22/21 01/22/21 Unknown History (Tylenol Extra Strength) amlodipine 10 mg tablet 10 mg PO DAILY 01/22/21 01/22/21 Unknown History aspirin 81 mg tablet,delayed 81 mg PO DAILY 01/22/21 01/22/21 Unknown History release carboxymethylcellulose sodium 0.5 1 drp EACH EYE 4-6XD PRN 01/22/21 01/22/21 Unknown History % eye drops cetirizine 10 mg tablet (All Day 10 mg PO DAILY PRN 01/22/21 01/22/21 Unknown History Allergy (cetirizine)) chlorthalidone 25 mg tablet 25 mg PO DAILY 01/22/21 01/22/21 Unknown History cholecalciferol (vitamin D3) 25 25 mcg PO DAILY 01/22/21 01/22/21 Unknown History mcg (1,000 unit) tablet fluticasone propionate 50 1 spray intranasal DAILY 01/22/21 01/22/21 Unknown History mcg/actuation nasal spray,suspension (Flonase Allergy Relief) glipizide 5 mg tablet 5 mg PO BID 01/22/21 01/22/21 Unknown History hydrophilic cream applic topical 01/22/21 01/22/21 Unknown History ketotifen fumarate 0.025 % (0.035 1 drp EACH EYE BID 01/22/21 01/22/21 Unknown History %) eye drops (Allergy Eye (ketotifen)) lisinopril 40 mg tablet 40 mg PO DAILY 01/22/21 01/22/21 Unknown History magnesium oxide 400 mg PO DAILY 01/22/21 01/22/21 Unknown History metoprolol tartrate 50 mg tablet 50 mg PO Q12H 01/22/21 01/22/21 Unknown History omeprazole 20 mg capsule,delayed 20 mg PO BID 01/22/21 01/22/21 Unknown History release pravastatin 40 mg tablet 40 mg PO .COMPLEX 01/22/21 01/22/21 Unknown History spironolactone 25 mg tablet 25 mg PO DAILY 01/22/21 01/22/21 Unknown History acetaminophen 500 mg tablet 500 mg PO Q6H PRN Pain (Scale 10/03/22 10/03/22 Unknown History (Tylenol Extra Strength) Score 1-3) amlodipine 10 mg tablet 10 mg PO QHS 10/03/22 10/03/22 10/02/22 History cetirizine 10 mg tablet 10 mg PO QHS 10/03/22 10/03/22 10/02/22 History chlorthalidone 50 mg tablet 50 mg PO DAILY 10/03/22 10/03/22 10/02/22 History cholecalciferol (vitamin D3) 25 25 mcg PO DAILY 10/03/22 10/03/22 10/03/22 History mcg (1,000 unit) capsule glipizide 5 mg tablet 5 mg PO DAILY 10/03/22 10/03/22 10/03/22 History lisinopril 40 mg tablet 40 mg PO QAM 10/03/22 10/03/22 10/03/22 History magnesium oxide 400 mg PO DAILY 10/03/22 10/03/22 10/03/22 History metoprolol tartrate 50 mg tablet 50 mg PO BID 10/03/22 10/03/22 10/03/22 08:00 History omeprazole 20 mg tablet,delayed 20 mg PO BID 10/03/22 10/03/22 10/03/22 08:00 History release pravastatin 40 mg tablet 40 mg PO 3XW 10/03/22 10/03/22 10/03/22 History spironolactone 25 mg tablet 25 mg PO DAILY 10/03/22 10/03/22 10/03/22 History Allergies Allergy/AdvReac Type Severity Reaction Status Date / Time No Known Allergies Allergy Verified 08/28/24 15:08 Review of Systems Review of Systems: All systems reviewed & are unremarkable except as noted in HPI and below PMFSH Past Medical History Medical History Hyperlipidemia DM2 (diabetes mellitus, type 2) Chronic GERD Hypertension Surgical History Surgical History S/P CABG x 5 Family History Family History Sibling Hypertension Heart disease Diabetes mellitus Daughter Cerebrovascular accident Father Family history of heart disease in male family member before age 55 Patient's father is Mother Family history of heart disease in male family member before age 55 Patient's mother is Sibling Family history of heart disease in male family member before age 55 Patient's sister is Social History Social History Social History: He has 2 daughters and lives with his step son . He is . Code status full code Smoking packs per day: 1 Smoking cigarettes per day: 20.0 Years smoked: 75 Smoking pack-years: 75.00 Smoking status: Current every day smoker Tobacco type: cigarettes Second hand tobacco smoke exposure: Yes Alcohol intake: never Substance use: never Lack of Transportation: No Lack of Food: Never True Current Housing: I Have Housing Concerned About Future Housing: No Difficulty Paying Gas/Electric Bills: No Difficulty Paying for Meds: No Currently Unemployed: No Education: High School Diploma/GED Difficulty w/ Childcare or Family Care: No Spiritual care concerns: No Exam Narrative: GENERAL APPEARANCE: WELL-DEVELOPED, WELL-NOURISHED SKIN: NORMAL COLOR HEAD: NORMOCEPHALIC, NONTRAUMATIC EYES: CLEAR CONJUNCTIVA ENT: OROPHARYNX NORMAL, EARS NORMAL, NOSE NORMAL NECK: SUPPLE, NONTENDER CHEST AND RESPIRATORY: AIRWAY PATENT, NO RESPIRATORY DISTRESS, NO ACCESSORY MUSCLE USE HEART: REGULAR RATE/RHYTHM ABDOMEN: SOFT, NONTENDER, NO ORGANOMEGALY, QUIET BOWEL SOUNDS VASCULAR: NORMAL PERIPHERAL PULSES, NORMAL CAPILLARY REFILL. MUSCULOSKELETAL: RIGHT KNEE EXAM SHOWING ANTERIOR ABRASION, SLIGHTLY SWOLLEN, SLIGHT LIMITED RANGE OF MOTION, 2+ EDEMA LOWER EXTREMITY BILATERALLY UP TO THE MID CALF MUSCLE NEUROLOGIC: ALERT AND ORIENTED ?3, STRIKE WARFARE/MISSILE SYSTEMS OFFICER IS NORMAL TESTED, NO GROSS MOTOR DEFICIT Course Vital Signs Vital signs: Vital Signs Temperature 36.3 C L 08/28/24 10:50 Pulse Rate 72 08/28/24 10:50 Respiratory Rate 18 08/28/24 10:50 Blood Pressure 128/50 L 08/28/24 10:50 Pulse Oximetry 100 08/28/24 10:50 Oxygen Delivery Room Air 08/28/24 10:50 Temperature 36.3 C L 08/28/24 10:50 Pulse Rate 76 08/28/24 13:10 Respiratory Rate 20 08/28/24 13:10 Blood Pressure 124/65 08/28/24 13:10 Pulse Oximetry 100 08/28/24 13:10 Oxygen Delivery Room Air 08/28/24 10:50 MDM - Fall MDM Narrative Medical decision making narrative: PATIENT CAME BECAUSE OF IF GROUND LEVEL FALL ON THE RIGHT KNEE VITAL SIGNS ARE STABLE PHYSICAL EXAMINATION SHOWING DIFFUSE TENDERNESS RIGHT NEW WAS ABRASION ANTERIORLY CT HEAD AND CT CERVICAL SPINE WITHOUT CONTRAST SHOWED NO ACUTE ABNORMALITY, X- RAY OF THE RIGHT KNEE SHOWED ARTHRITIS. Differential Diagnosis Differential diagnosis: Likely other ( ABOVE) Imaging Data Radiologist's impression: Impressions Head CT 08/28/24 14:29 IMPRESSION: 1. 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 2. Moderate nonspecific cerebral white matter disease, which likely represents chronic small vessel ischemic disease. Cervical Spine CT 08/28/24 14:37 IMPRESSION: 1. No fracture. 2. Severe cervical spondylosis. Knee X-Ray 08/28/24 17:18 IMPRESSION: 1. Mild right knee osteoarthritis. Critical Care Time Critical Care Time Critical Care Time: No Discharge Plan Discharge Clinical Impression: Fall, Contusion of knee, Hx of peripheral neuropathy, Poor peripheral circulation Patient Disposition: Home, Self-Care Condition: Stable Instructions: Contusion in Adults (ED), Abrasion (ED), Knee Pain (ED) Additional Instructions: RETURN IF SYMPTOMS ARE WORSENING , CALL YOUR FAMILY PHYSICIAN FOR APPOINTMENT, TAKE TYLENOL NEEDED FOR ACHES AND PAIN, CONTINUE HOME MEDICATIONS. Patient Language: Latvian Prescriptions: No Action acetaminophen [Tylenol Extra Strength] 500 mg tablet 500 mg PO Q6H PRN amlodipine 10 mg tablet 10 mg PO DAILY aspirin 81 mg tablet,delayed release (DR/EC) 81 mg PO DAILY cetirizine [All Day Allergy (cetirizine)] 10 mg tablet 10 mg PO DAILY PRN metoprolol tartrate 50 mg tablet 50 mg PO Q12H pravastatin 40 mg tablet 40 mg PO .COMPLEX Rx Instructions: Take 1 tablet by mouth every Tuesday, Tuesday, and Tuesday cholecalciferol (vitamin D3) 25 mcg (1,000 unit) tablet 25 mcg PO DAILY carboxymethylcellulose sodium 0.5 % drops 1 drp EACH EYE 4-6XD PRN chlorthalidone 25 mg tablet 25 mg PO DAILY fluticasone propionate [Flonase Allergy Relief] 50 mcg/actuation spray,suspension 1 spray intranasal DAILY Rx Instructions: administer into each nostril glipizide 5 mg tablet 5 mg PO BID hydrophilic cream Cream topical ketotifen fumarate [Allergy Eye (ketotifen)] 0.025 % (0.035 %) drops 1 drp EACH EYE BID Rx Instructions: administer at least 8 hours apart lisinopril 40 mg tablet 40 mg PO DAILY magnesium oxide 400 mg magnesium tablet 400 mg PO DAILY omeprazole 20 mg capsule,delayed release(DR/EC) 20 mg PO BID spironolactone 25 mg tablet 25 mg PO DAILY amoxicillin-pot clavulanate 875-125 mg tablet 1 tablet PO Q12H Qty: 14 0RF oxycodone-acetaminophen [Endocet] 5-325 mg tablet 1 tablet PO Q12H PRN (Reason: pain, severe) Qty: 6 0RF ondansetron 4 mg tablet,disintegrating 4 mg PO Q8H PRN (Reason: nausea and vomiting) Qty: 12 0RF cetirizine 10 mg Tablet 10 mg PO QHS chlorthalidone 50 mg Tablet 50 mg PO DAILY amlodipine 10 mg Tablet 10 mg PO QHS metoprolol tartrate 50 mg Tablet 50 mg PO BID lisinopril 40 mg Tablet 40 mg PO QAM glipizide 5 mg Tablet 5 mg PO DAILY omeprazole 20 mg Tablet,Delayed Release (Dr/Ec) 20 mg PO BID magnesium oxide 400 mg magnesium Tablet 400 mg PO DAILY pravastatin 40 mg Tablet 40 mg PO 3XW Rx Instructions: tuesday,tuesday,tuesday spironolactone 25 mg Tablet 25 mg PO DAILY cholecalciferol (vitamin D3) 25 mcg (1,000 unit) Capsule 25 mcg PO DAILY acetaminophen [Tylenol Extra Strength] 500 mg Tablet 500 mg PO Q6H PRN (Reason: Pain (Scale Score 1-3)) aspirin [Children's Aspirin] 81 mg Tablet,Chewable 324 mg PO DAILY@0800 Qty: 30 2RF clopidogrel 75 mg Tablet 75 mg PO QAM Qty: 30 2RF Follow-up/Referrals: [facility] [Primary Care Provider] -
--- OUTSIDE RECORDS SUMMARY | 2024-08-28 18:21 | XMS_ITS | Encounter Summary ---
Author Name [facility] [facility] [place] [facility] [facility] [place] Address [address] [place] [address] Care Team Providers Care Research Microbiologist Name Role Phone HAILEE CARMELLA Primary Care Provider Armando azevedo Insurance Providers: All historical and current Section Date Range: From patient's date of to the date document was created. This section includes the names of all active insurance providers for the patient. Insurance Provider Type of Coverage Plan Name Start of Policy Coverage End of Policy Coverage Group Number Member ID Insurance Provider's Telephone Number Policy Kessler's Name Patient's Relationship to Policy Kessler MEDICARE (WNR) MEDICARE (M) PART A Dec 02, 2004 PART A [id number] GODWINJENNIFERRobert Agudelo PATIENT MEDICARE (WNR) MEDICARE (M) PART B Dec 02, 2004 PART B [id number] [phone] [id number] REKHA TRINH PATIENT MEDICARE (WNR) MEDICARE (M) PART A Dec 02, 2004 PART A [id number] [phone] GODWINJENNIFERRobert Agudelo PATIENT MEDICARE (WNR) MEDICARE (M) PART B Dec 02, 2004 PART B [id number] REKHA TRINH PATIENT Selected Encounter This section includes the information on record at [place] for the Encounter. Date/Time Encounter Type Encounter Description Reason Provider Source Aug 24, 2024 02:00 PM OFFICE O/P EST MOD 30 MIN PRIMARY CARE/MEDICINE ICD-10-CM E11.40 Type 2 diabetes mellitus with diabetic neuropathy, unsp KRISTIN MCLAIN IHJagjit Encounter Template Text not used by [facility] Assessments - Encounter Diagnoses This section includes the primary and secondary diagnoses documented for the Encounter. Date/Time Primary/Secondary Diagnosis Diagnosis Name Provider Source Aug 24, 2024 06:21 PM PRIMARY Type 2 diabetes mellitus with diabetic neuropathy, unsp KRISTIN MCLAIN [facility] Aug 24, 2024 06:21 PM SECONDARY Peripheral vascular disease, unspecified KRISTIN MCLAIN [facility] Plan of Treatment: Future Appointments (+ 6 months) and Future Tests (+/- 45 days) The Plan of Treatment section includes future care activities for the patient [facility] [place] [facility] This section includes future appointments and future orders which are active, pending or scheduled. Future Appointments This section includes appointments that were scheduled to occur 6 months from the date of the Encounter, up to a maximum of 20 appointments. The data comes from all [facility]. Appointment Date/Time Appointment Type Appointme nt Facility Name Sep 24, 2024 02:00 PM AMBULATORY - MEDICINE [facility] November 01, 2024 03:00 PM AMBULATORY - MEDICINE [facility] Dec 28, 2024 02:00 PM AMBULATORY - MEDICINE [facility] Jan 16, 2025 02:00 PM AMBULATORY - MEDICINE [facility] Jan 17, 2025 02:30 PM AMBULATORY - MEDICINE [facility] Active, Pending, and Scheduled Orders This section includes a listing of several types of active, pending, and scheduled orders, including clinic medications orders, diagnostic test orders, procedure orders and consult orders; where the start date of the order is 45 days before the date of the Encounter or 45 days after the date of theEncounter. The data comes from all [facility]. Test Date/Time Test Type Test Details Facility Name Jul 18, 2024 10:57 AM Procedure Order CP EKG STL CP EKG - STL Proc Parimutuel [employer] [facility] Aug 24, 2024 06:19 PM Consult Order VASCULAR S URG I CLAUDICATING/NON-HEALING ULCER OUTPT STL Cons Parimutuel [employer] [facility] Lab Results: +/- 30 days of the encounter This section includes the Chemistry and Hematology Lab Results on record with [facility] for the patient. Radiology Reports and Pathology Reports are provided separately, in subsequent sections. Lab Results This section contains the Chemistry/Hematology Results that were resulted 30 days before or 30 daysafter the date of the Encounter. Date/Time Source Result Type Result - Unit Interpretation Reference Range Comment Aug 24, 2024 03:20 PM [facility] HGA1C Specimen Type: BLOOD No comment entered. Ordering Provider: SHAHRZAD MCLAIN Report Released Date/Time: Aug 24, 2024 02:51 PM Reporting Lab: [facility]1 [facility] [address] Performing Lab: [facility]1 [facility] [address] HGA1C 8.4 H 4.0-6.0 Aug 24, 2024 03:20 PM [facility] BASIC METABOLIC PANEL Specimen Type: PLASMA Comment: No hemolysis noted. Ordering Provider: SHAHRZAD MCLAIN Report Released Date/Time: Aug 24, 2024 02:51 PM Reporting Lab: [facility] [address] Performing Lab: [facility] [address] CREATININE 2.55 mg/dL H 0.70-1.30 UREA NITROGEN 45.1 mg/dL H 9.0-25.0 GLUCOSE 274 mg/dL H 72-99 SODIUM 140 meq/L 136-145 POTASSIUM 4.4 meq/L 3.5-5.0 CHLORIDE 100 meq/L 98-107 CARBON DIOXIDE 27 meq/L 22-31 CALCIUM 10.1 mg/dL 8.4-10.4 EGFR (CKD-EPI 2020) 24.13 >60 Vital Signs: All taken on the encounter date This section contains inpatient and outpatient Vital Signs collected on the date of the Encounter. Date/Time Temperature Pulse Blood Pressure Respiratory Rate SP02 Pain Height Weight Body Mass Index Source Aug 24, 2024 02:20 PM 134/67 [facility] Aug 24, 2024 02:14 PM 98.2 66 161/71 20 99 70 213.2 31 [facility] N Social History: Smoking Status (Most current) and Tobacco Use (All prior to encounter date) This section includes the most current, and the historical, smoking and tobacco- related health factors from the [place] facility where the Encounter took place. Current Smoking Status This section includes the most current smoking, or tobacco-related health factor, from the [place] facility where the Encounter took place. Date/Time Current Smoking Status Comment Facil ity Feb 08, 2023 02:00 PM VA-TOBACCO USER EVERY DAY [facility] Tobacco Use History This section includes a history of the smoking, or tobacco-related health factors, that were collected on or before the date of the Encounter. The data comes from the [place] facility where the Encounter took place. 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 [facility] Sep 08, 2021 11:00 AM VA-TOBACCO USE MED NO [facility] Sep 08, 2021 11:00 AM VA-TOBACCO USE WI 30 MIN OF WAKEUP [facility] Sep 08, 2021 11:00 AM VA-TOBACCO USER EVERY DAY [facility] Mar 12, 2019 03:39 PM VA-TOBACCO USE 30 YEARS OR MORE [facility] Mar 12, 2019 03:39 PM VA-TOBACCO USE ADVICE [facility] Mar 12, 2019 03:39 PM VA-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 [facility] Mar 12, 2019 03:39 PM VA-TOBACCO USE MED NO [facility] Mar 12, 2019 03:39 PM VA-TOBACCO USE WI 30 MIN OF WAKEUP [facility] Mar 12, 2019 03:39 PM VA-TOBACCO USER EVERY DAY [facility] Feb 02, 2018 03:18 PM VA-TOBACCO USE 30 YEARS OR MORE [facility] Feb 02, 2018 03:18 PM VA-TOBACCO USE ADVICE [facility] Feb 02, 2018 03:18 PM VA-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 [facility] Feb 02, 2018 03:18 PM VA-TOBACCO USE MED NO [facility] Feb 02, 2018 03:18 PM VA-TOBACCO USE WI 30 MIN OF WAKEUP [facility] Feb 02, 2018 03:18 PM VA-TOBACCO USER EVERY DAY [facility] Jan 30, 2018 09:59 AM CURRENT TOBACCO USER [facility] Jan 30, 2018 09:59 AM CURRENT TOBACCO US ER (NOT READY TO QUIT) [facility] Jan 30, 2018 09:59 AM TOBACCO CESSATION REFERRAL DECLINED [facility] Jan 30, 2018 09:59 AM TOBACCO MEDS OFFER ED BUT DECLINED [facility] Jan 30, 2018 09:59 AM TOBACCO USER OFFERED MEDS [facility] Aug 01, 2017 02:17 PM CURRENT TOBACCO USER [facility] Aug 01, 2017 02:17 PM CURRENT TOBACCO US ER (NOT READY TO QUIT) [facility] Aug 01, 2017 02:17 PM TOBACCO CESSATION REFERRAL DECLINED [facility] Aug 01, 2017 02:17 PM TOBACCO MEDS OFFER ED BUT DECLINED [facility] Aug 01, 2017 02:17 PM TOBACCO USER OFFERED MEDS [facility] Jan 28, 2017 02:26 PM CURRENT TOBACCO USER [facility] Jan 28, 2017 02:26 PM TOBACCO MEDS OFFER ED BUT DECLINED [facility] Aug 12, 2015 02:28 PM CURRENT TOBACCO USER [facility] Aug 12, 2015 02:28 PM TOBACCO MEDS OFFER ED BUT DECLINED [facility] November 28, 2013 10:03 AM CURRENT TOBACCO USER [facility] November 28, 2013 10:03 AM TOBACCO MEDS OFFER ED BUT DECLINED [facility] Jan 08, 2013 01:54 PM CURRENT TOBACCO USER [facility] Jan 08, 2013 01:54 PM TOBACCO MEDS OFFER ED BUT DECLINED [facility] Sep 29, 2011 08:54 AM CURRENT TOBACCO USER [facility] Sep 29, 2011 08:54 AM TOBACCO OFFERRED P T MEDS (PROVIDER) [facility] Aug 12, 2010 09:47 AM CURRENT TOBACCO USER [facility] Jul 31, 2009 01:27 PM CURRENT TOBACCO USER [facility] Jul 31, 2009 01:27 PM TOBACCO OFFERED PT MEDS (PROVIDER) [facility] Aug 09, 2008 11:25 AM CURRENT TOBACCO USER [facility] November 03, 2007 08:51 AM CURRENT TOBACCO USER [facility] November 03, 2007 08:51 AM TOBACCO OFFERRED P T MEDS (PROVIDER) [facility] Jun 13, 2007 10:53 AM CURRENT TOBACCO USER [facility] Jun 13, 2007 10:53 AM TOBACCO MEDS OFFER ED BUT DECLINED [facility] Jun 13, 2007 10:[address] OP SMOKING CLINIC [facility] November 30, 2006 01:07 PM CURRENT TOBACCO USER [facility] Jun 17, 2006 10:46 AM CURRENT TOBACCO USER [facility] Sep 24, 2005 09:53 AM CURRENT TOBACCO USER [facility] Sep 24, 2005 09:53 AM SMOKER 10-[facility] Sep 24, 2005 09:53 AM TOBACCO CONTEMPLATION STAGE [facility] Jan 29, 2005 09:08 AM CURRENT NON-TOBACC O USER-HX OF USE [facility] Jan 29, 2005 09:08 AM TOBACCO ACTION STAGE [facility] Mar 24, 2004 02:13 PM CURRENT TOBACCO USER [facility] Mar 24, 2004 02:13 PM SMOKER 1-2 [facility] Mar 24, 2004 02:13 PM TOBACCO PRECONTEMPLATION STAGE [facility] Advance Directives: All historical and current Section Date Range: From patient's date of to the date document was created. This section includes ALL of a patient's completed or amended [place] Advance and Rescinded Directives. The entries below indicate that a directive exists for the patient, but an actual copy is not included with this document. The data comes from all [place] facilities. Date Advance Directives Provider Source Sep 17, 2021 ADVANCE DIRECTIVE SHUBHAM JAMISON [facility] Oct 20, 2004 [facility] Encounter Notes: All associated encounter notes This section contains the clinical notes associated to the Encounter. Date/Time Encounter Note(s) Provider Source Aug 27, 2024 11:52 AM PHYSICIAN LETTERS: LOCAL TITLE: TEST RESULT GENERAL LETTER STL STANDARD TITLE: PHYSICIAN LETTERS DATE OF NOTE: AUG 27, 2024@11:52 ENTRY DATE: AUG 27, 2024@11:53:06 AUTHOR: KRISTIN MCLAIN EXP COSIGNER: URGENCY: STATUS: COMPLETED [facility] [address] [place] [address] AUG 27, 2024 YOANA TRINH [address] [place], [place] [address] Dear Yoana Trinh, I would like to update you on your recent test results. HEMOGLOBIN A1C - Gives us information about your diabetes (sugar or glucose) control over the past 3 months. Your target is to keep your A1C below 8 %. HGA1C 8.4 H % 08/24/2024 15:20 These results are abnormal. Your a1c has increased compared to previous lab. Since you have only been taking glipizide 5mg once daily, please resume this to twice daily as ordered previously. CHEM 7 - This is important information about the current status of your kidneys, liver, and electrolyte and acid/base balance as well as of your blood sugar and blood proteins. SODIUM 140 mEq/L 08/24/2024 15:20 POTASSIUM 4.4 mEq/L 08/24/2024 15:20 CHLORIDE 100 mEq/L 08/24/2024 15:20 UREA NITROGEN 45.1 H mg/dL 08/24/2024 15:20 CREATININE 2.55 H mg/dL 08/24/2024 15:20 CALCIUM 10.1 mg/dL 08/24/2024 15:20 CARBON DIOXIDE 27 mEq/L 08/24/2024 15:20 GLUCOSE 274 H mg/dL 08/24/2024 15:20 EGFR (CKD-EPI 2020) 24.13 08/24/2024 15:20 Your creatining and EGFR has immproved. PLease continue to stay hydrated and try to have good control of your blood pressure and blood sugar. Avoid kidney tocix meds like NSAIDs (aleve, ibuprofen, naproxen, etc.). PLAN Please continue your treatment as we discussed during your visit. If you have any questions please call your case management associate. I look forward to seeing you at your next clinic appointment. Thank you for choosing the [facility] for your healthcare. FUTURE APPOINTMENTS: 09/24/2024 14:00 REBECCA-PACT PHONE E10 PCP 1 11/01/2024 15:00 REBECCA-PACT E10 PCP 12/28/2024 14:00 RORY-PHONE ONCOLOGY 01/16/2025 14:00 REBECCA-CARDIOLOGY MD 4 01/17/2025 14:30 REBECCA-PACT E10 PCP Sincerely, Kristin Mclain MSN, [facility] NURSE PRACTITONER YOANA TRINH KHAYLA D [facility] Aug 24, 2024 02:17 PM PRIMARY CARE NOTE: LOCAL TITLE: PRIMARY CARE PROVIDER ESTABLISHED VISIT [facility] STANDARD TITLE: PRIMARY CARE NOTE DATE OF NOTE: AUG 24, 2024@14:17 ENTRY DATE: AUG 24, 2024@14:17:49 AUTHOR: KRISTIN MCLAIN EXP COSIGNER: URGENCY: STATUS: COMPLETED PRIMARY CARE PROVIDER ESTABLISHED VISIT [facility] Has ADDENDA ESTABLISHED PATIENT [id number]: REASON OR VISIT: Patient scheduled today's appointment for a focused visit, seen by this provider in absence of his assigned PCP. His last PCP visit was on 07/17/24. CHIEF CONCERN: R foot pain SUBJECTIVE HPI Mr. Trinh is a 84 year old WHITE MALE with the significant medical hx as listed below (see PMH), here today to be evaluated for his chief concern of R foot pain. Pt is here today with POA daughter, Irina and son in law. Pt reported that he began to note R foot pain about x 1.5 weeks ago. Pain localized to R ankle and top of foot, described as shooting pain, intermittent and occurs at randome, worse when touched/pressure on area. ALso endorses BLE 1+ which he thinks has been going on for about 1 month. However, chart reviewed demonstrate chronic BLE in which he is on furosemide 40mg daily for. Pt's daughter reported he was at [facility] in Jun 2024 for cardiac cath with PCI placement in which SINDHU was completed and pt found to have PAD. Report per below from V. However, pt reports pain has been only localized to R ankle and foot with shooting quality. Denies pain with ambulation in RLE. on exam, BLE edema is equal on both leg at 1+ pitting, no redness or heat to touch. DVT Wells score was moderate risk for hx of hospitalizating in past 12 weeks. Pt currently on Tricagrelor BID and ASA. Denies CP, SOB, intermittent claudication symptoms when asked. OF note, + hx DM. monofilament exam + for neuropathy, R foot worse than L. Pulses palpable on both feet, no discoloration noted. Daughter report they were not able to revascularize hid PAD due to elevated creatinine level while in hospital. Has not followed up with vasc surg for this. Interested in [facility] consult to Vasc Surg for PAD eval and f/u. PROCEDURES: Arterial Report: Non-invasive exam with continuous wave Doppler waveforms, segmental ankle pressures and photoplethysmography of digits. INDICATIONS: M79.604 Pain in right leg. Measurements: Right Anatomy Left Anatomy Measurement Value Normal Range Measurement Value Normal Range Right ENGINEERED WOOD DESIGNER 81 mmHg Left ENGINEERED WOOD DESIGNER 149 mmHg Right DPA 68 mmHg Left DPA 128 mmHg Right Digit 1 Pressure 0 mmHg Left Digit 1 Pressure 103 mmHg Right Brachial BP 180 mmHg Left Brachial BP 184 mmHg Right DP SINDHU Resting 0.37 Left DP SINDHU Resting 0.70 Right PT SINDHU Resting 0.44 Left PT SINDHU Resting 0.81 Left Digit Brachial Index 0.56 Measurement Value Normal Range Measurement Value Normal Range Right Anatomy Left Anatomy FINDINGS: Right Leg: The ENGINEERED WOOD DESIGNER waveform is monophasic. The DPA waveform is monophasic. The digit waveform ismdampened. Left Leg: The ENGINEERED WOOD DESIGNER waveform is biphasic. The DPA waveform is biphasic. The digit waveform is well preserved. Performing Technologist: This exam was performed by Vivek Lara RVT. CONCLUSIONS: 1. The right Ankle/Brachial Index is consistent with severe arterial occlusive disease. 2. The left Ankle/Brachial Index is consistent with mild arterial occlusive disease. 3. Right great toe pressure is immeasurable which may be consistent with vasospasm or pedal artery disease. 4. Left great toe pressure is adequate for wound healing potential. What is your goal for today? r foot pain SOURCE(S) OF HISTORY: Patient Discussion with another health care provider [facility] records reviewed and summarized PAST MEDICAL HISTORY: 1) Essential hypertension (SNOMED CT 06284556) 2) Allergies * (ICD-9-CM 995.3) 3) Osteoarthritis * (ICD-9-CM 715.90) 4) Tobacco dependence syndrome (SNOMED CT 46266414) 5) Mixed hyperlipidemia (SNOMED CT 625022904) 6) Erectile dysfunction (SNOMED CT 748425952) 7) COR ATHEROSCL NATV C VSL 8) Postsurgical Aortocoronary Bypass Status (ICD-9-CM V45.81) 9) CONSTIPATION, unspecified (ICD-9-CM 564.00) 10) Coronary artery disease (SNOMED CT 17410600) 11) Gynecomastia 12) Gynecomastia 13) Chronic kidney disease stage 3B 14) Essential hypertension 15) Renal osteodystrophy 16) Type 2 diabetes mellitus well controlled 17) Monoclonal gammopathy 18) Chronic kidney disease stage 3B 19) Cerebral infarction 20) Exposure to potentially hazardous substance ALLERGIES: ALLERGY REVIEW: Allergy list reviewed and remains current. Active Outpatient Medications (excluding Supplies): Issue Date Status Last Fill Active Outpatient Medications Refills Expiration 1) AMLODIPINE BESYLATE 10MG TAB Qty: 90 for 90 ACTIVE Issue: 05/03/24 days Sig: TAKE ONE TABLET BY MOUTH ONCE A Refills: 3 Last : 06/22/24 DAY TO LOWER BLOOD PRESSURE Expr : 05/04/25 2) ATORVASTATIN CALCIUM 80MG TAB Qty: 45 for 90 ACTIVE Issue: 07/17/24 days Sig: TAKE ONE-HALF TABLET BY MOUTH Refills: 3 Last : 07/18/24 EVERY EVENING Expr : 07/18/25 Indication: FOR HIGH CHOLESTEROL 3) CETIRIZINE HCL 10MG TAB Qty: 90 for 90 days ACTIVE Issue: 05/03/24 Sig: TAKE ONE TABLET BY MOUTH ONCE A DAY FOR Refills: 1 Last : 07/02/24 ALLERGIES Expr : 05/04/25 4) FUROSEMIDE 40MG TAB Qty: 90 for 90 days Sig: ACTIVE Issue: 07/09/24 TAKE ONE TABLET BY MOUTH EVERY MORNING Refills: 3 Last : 07/09/24 Indication: FOR FLUID RETENTION (EDEMA) Expr : 07/10/25 5) GLIPIZIDE 5MG TAB Qty: 180 for 90 days Sig: ACTIVE Issue: 05/03/24 TAKE ONE TABLET BY MOUTH TWICE A DAY TAKE 30 Refills: 3 Last : 07/13/24 MINUTES BEFORE EATING. Expr : 05/04/25 Indication: FOR DIABETES 6) LISINOPRIL 40MG TAB Qty: 90 for 90 days Sig: ACTIVE (S) Issue: 07/17/24 TAKE ONE TABLET BY MOUTH ONCE A DAY FOR Refills: 3 Last : 09/28/24 HEART OR BLOOD PRESSURE Expr : 07/18/25 7) METOPROLOL TARTRATE 50MG TAB Qty: 270 for 90 ACTIVE Issue: 05/26/24 days Sig: TAKE ONE AND ONE-HALF TABLETS BY Refills: 2 Last : 08/15/24 MOUTH TWICE A DAY . TAKE WITH OR IMMEDIATELY Expr : 05/27/25 FOLLOWING FOOD. Indication: FOR HIGH BLOOD PRESSURE 8) OMEPRAZOLE 20MG EC CAP Qty: 60 for 30 days ACTIVE Issue: 03/25/24 Sig: TAKE ONE CAPSULE BY MOUTH TWO TIMES A Refills: 0 Last : 07/10/24 DAY BEFORE MEALS TO LOWER STOMACH ACID. TAKE Expr : 03/26/25 30 MINUTES PRIOR TO FOOD. 9) SPIRONOLACTONE 25MG TAB Qty: 90 for 90 days ACTIVE Issue: 07/03/24 Sig: TAKE ONE TABLET BY MOUTH ONCE A DAY Refills: 3 Last : 08/18/24 *WATER PILL* Expr : 07/04/25 Indication: FOR HIGH BLOOD PRESSURE 10) TICAGRELOR 90MG TAB Qty: 60 for 30 days Sig: ACTIVE Issue: 07/11/24 TAKE ONE TABLET BY MOUTH TWICE A DAY Refills: 5 Last : 07/11/24 Expr : 07/12/25 Start Date Active Non-VA Medications Status Stop Date 1) Non-VA ASPIRIN 81MG EC TAB SiMG BY ACTIVE MOUTH 2) Non-VA CHOLECALCIF 25MCG (D3-1,000UNIT) TAB ACTIVE SiUNIT BY MOUTH ONCE A DAY 12 Total Medications The essential med list for review which includes the patient's active VA prescriptions and if applicable, remote VA prescriptions, non-VA prescriptions, and discontinued VA prescriptions within the last 90 days and known allergies including local and remote allergies have been reviewed. REVIEW OF SYSTEM: GENERAL: Denies fever, chills HEENT: Defer CARDIO: Denies chest pain, palpitations, dizziness RESP: Denies dyspnea, cough GI: Defer MSK: + shooting pain R foot and lateral ankle, see HPI /TALLOW REFINER: Defer PSYCH: Defer NEURO: + neuropathy per monofilament testing, R worse than L foot SKIN: no discoloration to BLE OBJECTIVE DATA PHYSICAL EXAMINATION: Vital Signs: Temperature: 98.2 F [36.8 C] (08/24/2024 14:14) Blood Pressure: 134/67 (08/24/2024 14:20) Pulse: 66 (08/24/2024 14:14) Respirations: 20 (08/24/2024 14:14) Pain: 0 (07/20/2024 12:07) O2 saturation: 99% (08/24/2024 14:14) Weight: 213.2 lb [96.71 kg] (08/24/2024 14:14) Height: 70 in [177.8 cm] (08/24/2024 14:14) BMI: 30.7 GEN: No acute distress noted. Non-toxic appearance HEENT: normocephalic CARDIO: RRR, No murmurs. + BLE 1+ pitting edema RESP: Respirations unlabored. Lungs CTAB GI: deferred MSK: No deformities noted. 1+ pitting edema to BLE. No erythema to joints, no leg discoloration, no heat to tough. + sensitivity and pain to top of R foot when palpated. /TALLOW REFINER: deferred HEMO/LYMPH: deferred ENDO:deferred PSYCH: pleasant and cooperative. Mood and affect normal. NEURO: A&O x 3, SKIN: warm and intact DATA REVIEW: SODIUM 136 mEq/L 07/20/2024 13:17 POTASSIUM 4.3 mEq/L 07/20/2024 13:17 CHLORIDE 98 mEq/L 07/20/2024 13:17 UREA NITROGEN 53.0 H mg/dL 07/20/2024 13:17 CREATININE 3.88 H mg/dL 07/20/2024 13:17 CALCIUM 9.8 mg/dL 07/20/2024 13:17 PROTEIN 7.2 g/dL 11/01/2023 15:47 ALBUMIN 3.7 g/dL 07/20/2024 13:17 ALKALINE PHOSPHATASE 63 U/L 11/01/2023 15:47 ALT/SGPT 11 U/L 11/01/2023 15:47 AST/SGOT 15 U/L 11/01/2023 15:47 TOTAL BILIRUBIN 0.5 mg/dL 11/01/2023 15:47 CARBON DIOXIDE 27 mEq/L 07/20/2024 13:17 GLUCOSE 220 H mg/dL 07/20/2024 13:17 EGFR (CKD-EPI 2020) 14.6 L* 07/20/2024 13:17 WBC 8.4 10*3/uL 07/20/2024 13:17 RBC 3.84 L 10*6/uL 07/20/2024 13:17 HGB 12.0 L g/dL 07/20/2024 13:17 HCT 35.6 L % 07/20/2024 13:17 MCV 92.7 fL 07/20/2024 13:17 MCH 31.3 pg 07/20/2024 13:17 MCHC 33.7 g/dL 07/20/2024 13:17 RDW 13.4 % 07/20/2024 13:17 PLT 156 10*3/uL 07/20/2024 13:17 MPV 11.3 H fL 07/20/2024 13:17 NEUTROPHILS, AUTO % 67 % 07/20/2024 13:17 LYMPHOCYTES, AUTO % 21 % 07/20/2024 13:17 MONOCYTES, AUTO % 10 % 07/20/2024 13:17 EOSINOPHILS, AUTO % 2 % 07/20/2024 13:17 BASOPHILS, AUTO % 1 % 07/20/2024 13:17 NEUTROPHILS, ABSOLUTE 5.63 10*3/uL 07/20/2024 13:17 LYMPHOCYTES, ABSOLUTE 1.73 10*3/uL 07/20/2024 13:17 MONOCYTES, ABSOLUTE 0.81 H 10*3/uL 07/20/2024 13:17 EOSINOPHILS, ABSOLUTE 0.15 10*3/uL 07/20/2024 13:17 BASOPHILS, ABSOLUTE 0.04 10*3/uL 07/20/2024 13:17 TRIGLYCERIDE 157 H mg/dL 11/01/2023 15:47 CHOLESTEROL 187 mg/dL 11/01/2023 15:47 HDL(New) 34 L mg/dL 11/01/2023 15:47 CALCULATED LDL 122 mg/dL 11/01/2023 15:47 No TSH (2YR) EO data found HGB A1C Collection DT Specimen Test Name Result Units Ref Range 11/01/2023 15:47 BLOOD HGA1C 7.3 H % 4.0 - 6.0 02/08/2023 14:36 BLOOD HGA1C 7.0 H % 4.0 - 6.0 No PSA EO data found VITAMIN D, 25-HYDROXY 37.1 ng/mL 07/20/2024 13:17 B12 229 pg/mL 02/08/2023 14:36 ASSESSMENT AND PLAN #Neuropathy vs PAD -ABIs per above -will consult vasc surg -trial gabapentin 300mg Qhs,lidocaine 5% patch to R foot -continue tricagrelor, ASA, and statin -advised of strict ER precautions for DVT/PE symptoms -advised on smoking cessation- pt declined -order BMP, A1c to reassess renal fx and DM -f/u phone visit with PCP in 4 wks to assess foot pain and consider increasing gabapentin if applicable #CKD G5: -pt followed by renal -recheck BMP today -on ACEi -renally dosed meds. -educated pt of importance to optimize BP & glycemic control -pt advised to avoid nephrotoxins, including NSAIDs, adequate oral hydration, eat healthy balanced diet, & regular exercise. #DMII: controlled; A1c goal <8% -daughter reports home BS -HgbA1c 7.3 H % on 11/01/23, recheck today -Cont. current meds: -glipizide 5mg BID- daughter report has been decreased to once daily -cont. Statin and ACEi -Pt edu on LSMs- optimizing diet, exercise, and wt management, smoking cessation # Health Maintenance: -Reviewed recommended screening and Benefits. -Reviewed recommended immunizations. -Counselling provided on: -Avoidance of tobacco. -Being physically active. -Maintaining a healthy weight. -Eating a diet rich in fruits, vegetables, and whole grains and low in saturated/trans fat. -Limiting alcohol consumption. -Avoiding excess sun exposure. -Reviewed Crisis hotline and encourage to us if needed. -Aware of the 24/01 Veterans Crisis Line: , press 1 for Veterans. ADMINISTERED Immunization Series Date Facility Reaction Info COVID-19 (PFIZER), MRNA, LNP-S, * 2 02/17/2021 [facility]* <C> COVID-19 (PFIZER), MRNA, LNP-S, * 1 01/27/2021 [facility]* <C> INFLUENZA (HISTORICAL) 07/31/2004 [facility] INFLUENZA (HISTORICAL) 05/10/2003 [facility] INFLUENZA, SPLIT VIRUS, QUADRIVA* 06/12/2019 [facility] INFLUENZA, SPLIT VIRUS, QUADRIVA* 08/01/2017 [facility] INFLUENZA, UNSPECIFIED FORMULATI* [facility] INFLUENZA, UNSPECIFIED FORMULATI* [facility] INFLUENZA, UNSPECIFIED FORMULATI* 04/04/2013 [facility] INFLUENZA, UNSPECIFIED FORMULATI* 04/06/2011 [facility] INFLUENZA, UNSPECIFIED FORMULATI* [facility] INFLUENZA, UNSPECIFIED FORMULATI* 07/31/2009 [facility] INFLUENZA, UNSPECIFIED FORMULATI* 05/06/2008 [facility] INFLUENZA, UNSPECIFIED FORMULATI* 06/02/2007 [facility] INFLUENZA, UNSPECIFIED FORMULATI* 05/27/2006 [facility] INFLUENZA, UNSPECIFIED FORMULATI* 05/28/2005 [facility] INFLUENZA, UNSPECIFIED FORMULATI* 07/31/2004 [facility] INFLUENZA, UNSPECIFIED FORMULATI* 05/10/2003 [facility] PNEUMOCOCCAL CONJUGATE PCV 13 08/21/2014 . [facility]* PNEUMOCOCCAL, UNSPECIFIED FORMUL* 01/29/2005 . [facility]* TDAP 07/04/2009 No Site [facility] LIVE 12/27/2008 [facility]* REFUSED ======= Immunization Date Facility Info COVID-19 (MODERNA), MRNA, LNP-S,* 05/03/2024 [facility]* <I> COVID-19 (PFIZER), MRNA, LNP-S, * 11/01/2023 [facility]* <I> INFLUENZA, UNSPECIFIED FORMULATI* 07/17/2024 [facility]* <I> INFLUENZA, UNSPECIFIED FORMULATI* 05/03/2024 [facility]* <I> TD(ADULT) UNSPECIFIED FORMULATION 07/17/2024 [facility]* <I> TD(ADULT) UNSPECIFIED FORMULATION 02/08/2023 [facility]* <I> ZOSTER RECOMBINANT 07/17/2024 [facility]* <I> ZOSTER RECOMBINANT 11/01/2023 [facility]* <I> ZOSTER RECOMBINANT 02/08/2023 [facility]* <I> Labs ordered: BMP, a1c Consults ordered: vasc surg RETURN TO CLINIC: 4 wk phone visit with PCP 08/24/2024 14:00 [facility]-PC SAME DAY CLINIC 11/01/2024 15:00 REBECCA-PACT E10 PCP 12/28/2024 14:00 RORY-PHONE ONCOLOGY 01/16/2025 14:00 [facility]-CARDIOLOGY 4 01/17/2025 14:30 REBECCA-PACT E10 PCP SUMMARY STATEMENT: Plan of care has been discussed with including expected therapeutic benefits and potential side effects of prescribed medication and treatments. [place] verbalizes understanding and is in agreement with the plan of care. Patient was instructed to keep all scheduled appointments and contact studio engineer for any additional problems. /grady Mclain MSN, [facility]- NURSE PRACTITONER Signed: 08/24/2024 18:21 08/27/2024 ADDENDUM STATUS: COMPLETED called pt, daughter CHRIS Heredia answered and verified vet's name and . Advised her of lab results: #DM. -a1c up to 8.4% -advised to resume taking glipizide 5mg BID as she reports BS better control when taken BID -continue to watch diet for low carb/concentrated sweets #CKD g4 -improved to G4 with EGFR at 24.1 -advised to continue adequate oral hydration, good managment of BS and blood pressure -avoid nephrotix substances #PAD -advised her vasc surg consult accepted and clinic will call her for appt Irina voiced udnerstanding. NO further questions voiced. /michael/ Kristin Mclain MSN, [employer]- NURSE PRACTITONER Signed: 08/27/2024 12:06 KRISTIN MCLAIN [facility] Aug 24, 2024 02:15 PM NURSING NOTE: LOCAL TITLE: V15 PACT FACE TO FACE NOTE STL STANDARD TITLE: NURSING NOTE DATE OF NOTE: AUG 24, 2024@14:15 ENTRY DATE: AUG 24, 2024@14:16 AUTHOR: СЕРГЕЙ LANGE EXP COSIGNER: URGENCY: STATUS: COMPLETED Provider Visit: Patient Identifiers : Full Name Date of Reason for visit: Acute Care swelling in right foot Mode of Arrival: Assistive Device: cane Allergy Review: Patient has answered NKA Allergy list reviewed and remains current. Recent Vital Signs: Temperature: 98.2 F [36.8 C] (08/24/2024 14:14) Pulse: 66 (08/24/2024 14:14) Respiration: 20 (08/24/2024 14:14) B/P: 161/71 (08/24/2024 14:14) Pain: 0 (07/20/2024 12:07) Wt: 213.2 lb [96.71 kg] (08/24/2024 14:14) Ht: 70 in [177.8 cm] (08/24/2024 14:14) BMI: 30.7 POX: 99% (08/24/2024 14:14) Would you like to discuss any personal problem, family problem, alcohol use, drug use, or a mental or emotional illness? No Contact provided Primary Care phone number and encouraged to call if any questions or concerns. Review that after hours nurse line [phone] and emergency room are available 24/01 for patient use. Contact verbalized good understanding. /michael/ СЕРГЕЙ CHON RN REGISTERED NURSE Signed: 08/24/2024 14:17 СЕРГЕЙ LANGE [facility]
--- OUTSIDE RECORDS SUMMARY | 2024-08-28 18:21 | XMS_ITS | Encounter Summary ---
Author Name [facility] [facility] Address [address] [place] [address] Care Team Providers Care Renewable Energy Project Manager Name Role Phone CARMELLA STEPHEN Primary Care Provider Armando azevedo Insurance Providers: [...] PART A Dec 02, 2004 PART A [id number] REKHA CONNELLY PATIENT MEDICARE (WNR) MEDICARE (M) PART B Dec 02, 2004 PART B [id number] REKHA CONNELLY PATIENT MEDICARE (WNR) MEDICARE (M) PART A Dec 02, 2004 PART A [id number] REKHA CONNELLY PATIENT MEDICARE (WNR) MEDICARE (M) PART B Dec 02, 2004 PART B [id number] [phone] [id number] REKHA CONNELLY PATIENT Selected Encounter This section includes the information on record at [place] for the Encounter. Date/Time Encounter Type Encounter Description Reason Pro vider Source IHE Encounter Template Text not used by [place] Advance Directives: All historical and current Section Date Range: From patient's date of to the date document was created. This section includes ALL of a patient's completed or amended [place] Advance and Rescinded Directives. The entries below indicate that a directive exists for the patient, but an actual copy is not included with this document. The data comes from all [place] facilities. Date Advance Directives Provider Source Sep 17, 2021 ADVANCE DIRECTIVE SHUBHAM JAMISON IS [facility] Oct 20, 2004 ADVANCE DIRECTIVE SAHIL WOLFE S [facility]
--- OUTSIDE RECORDS SUMMARY | 2024-08-28 18:22 | XMS_ITS | Encounter Summary ---
Author Name [facility] [place] [facility] [place] [facility] [place] [facility] [place] Address [address] [place] [address] Care Team Providers Care Cotton Cleaner Name Role Phone HAILEE CARMELLA Primary Care [...] PART A Dec 02, 2004 PART A [id number] [phone] GODWINJENNIFERRobert Agudelo PATIENT MEDICARE (WNR) MEDICARE (M) PART B Dec 02, 2004 PART B [id number] REKHA CONNELLY PATIENT MEDICARE (WNR) MEDICARE (M) PART A Dec 02, 2004 PART A [id number] GODWINJENNIFERRobert Agudelo PATIENT MEDICARE (WNR) MEDICARE (M) PART B Dec 02, 2004 PART B [id number] REKHA CONNELLY PATIENT Selected Encounter This section includes the information on record at [place] for the Encounter. Date/Time Encounter Type Encounter Description Reason Provider Source Jul 20, 2024 12:30 PM OFFICE O/P EST MOD 30 MIN RENAL/NEPHROL(EXC EPT DIALYSIS) ICD-10-CM I10 Essential (primary) hypertension PATIENCEDEIRDRE FIELDS RAJESHLULUVicki IH Encounter Template Text not used by [place] Assessments - Encounter Diagnoses This section includes the primary and secondary diagnoses documented for the Encounter. Date/Time Primary/Secondary Diagnosis Diagnosis Name Provider Source Jul 20, 2024 01:21 PM PRIMARY Essential (primary) hypertension DEIRDRE MOLINA [facility] Jul 20, 2024 01:21 PM SECONDARY Chronic kidney disease, stage 3b [facility] Jul 20, 2024 01:21 PM SECONDARY Edema, unspecified [facility] Jul 20, 2024 01:21 PM SECONDARY Secondary hyperparathyroidism of renal origin [facility] Plan of Treatment: Future Appointments (+ 6 months) and Future Tests (+/- 45 days) The Plan of Treatment section includes future care activities for the patient from all [place] treatmentfacilities. This section includes future appointments and future orders which are active, pending or scheduled. Future Appointments This section includes appointments that were scheduled to occur 6 months from the date of the Encounter, up to a maximum of 20 appointments. The data comes from all [place] treatment facilities. Appointment Date/Time Appointment Type Appointme nt Facility Name Aug 22, 2024 11:00 AM [facility] Aug 24, 2024 02:00 PM [facility]ICINE [facility] Sep 24, 2024 02:00 PM [facility] November 01, 2024 03:00 PM AMBUL[facility]ORY - MEDICINE [facility] Dec 28, 2024 02:00 PM AMBULATORY - MEDICINE [facility] Jan 16, 2025 02:00 PM AMBUL[facility]ORY - MEDICINE [facility] Jan 17, 2025 02:30 PM AM[facility]ORY [facility] MEDICINE [facility] Active, Pending, and Scheduled Orders This section includes a listing of several types of active, pending, and scheduled orders, including clinic medications orders, diagnostic test orders, procedure orders and consult orders; where the start date of the order is 45 days before the date of the Encounter or 45 days after the date of theEncounter. The data comes from all [place] treatment facilities. Test Date/Time Test Type Test Details Facility Name Jul 03, 2024 03:14 PM Consult Order [facility] Cons Vendor Manager's [facility] Jul 09, 2024 12:00 AM Laboratory - Chemi stry Order MICRAL/CREAT PROFILE (STL) URINE YELLOW SP [facility] Jul 09, 2024 12:00 AM Laboratory - Chemi stry Order PROTEIN URINE URINE YELLOW SP [facility] Jul 18, 2024 10:57 AM Procedure Order CP EKG STL CP EKG - [facility]L [facility] Aug 24, 2024 06:19 PM Consult Order VASCULAR S URG I CLAUDICATING/NON-HEAL ING [facility]LCER OUTPT [facility] Results: +/- 30 days of the [...] Result - Unit Interpretation Reference Range Comment Jul 20, 2024 01:17 PM [facility] VITAMIN D, 25-HYDROXY Specimen Type: SERUM No comment entered. Ordering Provider: Pricila MOLINA Report Released Date/Time: Jul 09, 2024 02:40 PM Reporting Lab: [facility] [address] [facility] [facility] [address] Performing Lab: [facility] [address] [facility] [address] VITAMIN D, 25-HYDROXY 37.1 ng/mL 30-96 Jul 20, 2024 01:17 PM [facility] PTH, INTACT (STL) Specimen Type: SERUM No comment entered. Ordering Provider: Pricila MOLINA Report Released Date/Time: Jul 09, 2024 02:40 PM Reporting Lab: [address] [address] Performing Lab: [address] [address] PTH, INTACT (STL) 89.50 pg/mL H 8.7-77.7 Jul 20, 2024 01:17 PM [facility] RENAL PANEL Specimen Type: PLASMA Comment: No hemolysis noted. Ordering Provider: Pricila MOLINA Report Released Date/Time: Jul 09, 2024 02:40 PM Reporting Lab: [address] [address] Performing Lab: [address] [address] CREATININE 3.88 mg/dL H 0.7-1.3 UREA NITROGEN 53.0 mg/dL H 9.0-25.0 GLUCOSE 220 mg/dL H 72-99 SODIUM 136 meq/L 136-145 POTASSIUM 4.3 meq/L 3.5-5 CHLORIDE 98 meq/L 98-107 CARBON DIOXIDE 27 meq/L 22-31 CALCIUM 9.8 mg/dL 8.4-10.4 PHOSPHOROUS 3.3 mg/dL 2.3-4.7 ALBUMIN 3.7 g/dL 3.4-5 EGFR (CKD-EPI 2020) 14.6 LL >60 Jul 20, 2024 01:17 PM [facility] CBC Specimen Type: BLOOD No comment entered. Ordering Provider: Pricila MOLINA Report Released Date/Time: Jul 09, 2024 02:40 PM Reporting Lab: [address] [address] Performing Lab: [address] [address] WBC 8.4 10*3/uL 3.6-11.2 RBC 3.84 10*6/uL L 4.10-5.70 HGB 12.0 g/dL L 13.1-16.8 HCT 35.6 L 38.2-48.4 MCV 92.7 fL 80.0-100.0 MCH 31.3 pg 27.0-34.0 MCHC 33.7 g/dL 33.0-36.0 PLT 156 10*3/uL 150-400 MPV 11.3 fL H 7.5-11.2 RDW 13.4 11.8-15.1 LYMPHOCYTES, AUTO % 21 MONOCYTES, AUTO % 10 NEUTROPHILS, AUTO % 67 EOSINOPHILS, AUTO % 2 BASOPHILS, AUTO % 1 LYMPHOCYTES, ABSOLUTE 1.73 10*3/uL 0.77-4.50 MONOCYTES, ABSOLUTE 0.81 10*3/uL H 0.19-0.80 NEUTROPHILS, ABSOLUTE 5.63 10*3/uL 2.10-8.00 EOSINOPHILS, ABSOLUTE 0.15 10*3/uL 0.00-0.60 BASOPHILS, ABSOLUTE 0.04 10*3/uL 0.00-0.20 Jul 20, 2024 01:16 PM [facility] IRON/TIBC PROFILE Specimen Type: SERUM No comment entered. Ordering Provider: Pricila MOLINA Report Released Date/Time: Jul 20, 2024 12:55 PM Reporting Lab: [address] [address] Performing Lab: [address] [address] TIBC 308 ug/dL 250-450 TRANSFERRIN 246 mg/dL 163-344 IRON SATURATION 55 H 20-50 IRON 169 ug/dL 65-175 Jul 20, 2024 01:16 PM [facility] FERRITIN Specimen Type: SERUM No comment entered. Ordering Provider: Pricila MOLINA Report Released Date/Time: Jul 20, 2024 12:55 PM Reporting Lab: [address] [address] Performing Lab: [address] [address] FERRITIN 400.00 ng/mL H 22-275 Jul 20, 2024 01:16 PM [facility] MAGNESIUM Specimen Type: PLASMA No comment entered. Ordering Provider: Pricila MOLINA Report Released Date/Time: Jul 20, 2024 12:56 PM Reporting Lab: [facility] [address] [address] Performing Lab: [facility] [address] [facility] [facility] [address] MAGNESIUM 1.9 mg/dL 1.6-2.6 Vital Signs: All taken on the encounter date This section contains inpatient and outpatient Vital Signs collected on the date of the Encounter. Date/Time Temperature Pulse Blood Pressure Respiratory Rate SP02 Pain Height Weight Body Mass Index Source Jul 20, 2024 12:07 PM 97.5 71 134/67 18 97 0 70 213.2 31 [facility] Social History: Smoking Status (Most current) and Tobacco Use (All prior to encounter date) This section includes the most current, and the historical, smoking and tobacco- related health factors from the [place] facility where the Encounter took place. Current Smoking Status This section includes the most current smoking, or tobacco-related health factor, from the [place] facility where the Encounter took place. Date/Time Current Smoking Status Comment Octavio eanmorado May 01, 2024 03:41 PM VA-TOBACCO USER EVERY DAY [facility] Tobacco Use History This section includes a history of the smoking, or tobacco-related health factors, that were collected on or before the date of the Encounter. The data comes from the [place] facility where the Encounter took place. 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 [facility] Jul 29, 2020 01:06 PM VA-TOBACCO USE MED NO [facility] Jul 29, 2020 01:06 PM VA-TOBACCO USE WI 30 MIN OF WAKEUP [facility] Jul 29, 2020 01:06 PM VA-TOBACCO USER EVERY DAY [facility] Jan 06, 2006 10:38 AM CURRENT TOBACCO USER [facility] Jan 06, 2006 10:38 AM SMOKER 10-20 [facility] Jan 06, 2006 10:38 AM TOBACCO CONTEMPLATION STAGE [facility] May 10, 2003 08:36 AM CURRENT TOBACCO USER [facility] May 10, 2003 08:36 AM TOBACCO USE [facility] Dec 14, 2002 07:49 AM CURRENT TOBACCO USER [facility] Dec 14, 2002 07:49 AM TOBACCO USE [facility] Advance Directives: All historical and current Section Date Range: From patient's date of to the date document was created. This section includes ALL of a patient's completed or amended [place] Advance and Rescinded Directives. The entries below indicate that a directive exists for the patient, but an actual copy is not included with this document. The data comes from all [place] facilities. Date Advance Directives Provider Source Sep 17, [address] [facility] Oct 20, 2004 ADVANCE DIRECTIVE SAHIL WOLFE [facility] Encounter Notes: All associated encounter notes This section contains the clinical notes associated to the Encounter. Date/Time Encounter Note(s) Provider Source Jul 30, 2024 10:43 AM ADDENDUM: LOCAL TITLE: Addendum STANDARD TITLE: ADDENDUM DATE OF NOTE: JUL 30, 2024@10:43:11 ENTRY DATE: JUL 30, 2024@10:43:11 AUTHOR: CAMILO METZ EXP COSIGNER: URGENCY: STATUS: COMPLETED Spironolactone is not a strong diuretic, it will not have much impact on edema but renal function has to be monitored in view of CKD. He is on lasix 40 mg, had mild edema on last appt with me. You may titrate it as needed based on edema and renal function. Amlodipine may also be contributing to his edema. /es/ Camilo Metz MD Cardiology Physician Signed: 07/30/2024 10:46 Receipt Acknowledged By: 07/31/2024 12:11 /es/ SUPRIYA MOLINA APRN, DOCUMENT ADVISOR-BC, DNP NURSE PRACTITIONER --- Original Document --- 07/20/24 NEPHROLOGY OUTPATIENT FOLLOW UP STL: Subjective: 84yo w pmhx of HTN,OA, DMT2, MGUS, CABG, PCI w stent placement and ckd seen in renal clinic. Last clinic visit was July 09 on phone. Here w son in law for follow up visit. Has chest pain on exertion otherwise no chest pain. He denied n/v, blood in urine or stool or painful urination. Alexandria still smokes 1-2 packs of cigarette/day. Also acknoweledged taking Aleve for pain. [place] said he was told to see vascular surgery for poor circulation to his lower ext and wondering the state of his kidney after his recent cardiac event. I discussed to repeat lab today. Educated on measures to maintain kidney health. He is hoping he will never need dialysis but will consider treatment if absolutely indicated. Home bp log systolic in the 100-160, not quite sure if he taking correctly. Home bs log usually below 200 PROBLEM LIST: 1) Essential hypertension (SNOMED CT 64624318) 2) Allergies * (ICD-9-CM 995.3) 3) Osteoarthritis * (ICD-9-CM 715.90) comment: R knee and hip 4) Tobacco dependence syndrome (SNOMED CT 04809355) 5) Mixed hyperlipidemia (SNOMED CT 560883770) 6) Erectile dysfunction (SNOMED CT 001424307) 7) COR ATHEROSCL NATV C VSL 8) Postsurgical Aortocoronary Bypass Status (ICD-9-CM V45.81) 9) CONSTIPATION, unspecified (ICD-9-CM 564.00) 10) Coronary artery disease (SNOMED CT 20943327) comment: CABG in 2004 for 3-vessel disease (LAD 60%, LCfx 90%, RC100 11) Gynecomastia 12) Gynecomastia 13) Chronic kidney disease stage 3B 14) Essential hypertension 15) Renal osteodystrophy 16) Type 2 diabetes mellitus well controlled 17) Monoclonal gammopathy 18) Chronic kidney disease stage 3B 19) Cerebral infarction 20) Exposure to potentially hazardous substance ROS none significant except as stated above Outpatient Medications: Active Outpatient Medications (including Supplies): Active Outpatient Medications Status 1) AMLODIPINE BESYLATE 10MG TAB TAKE ONE TABLET BY MOUTH ONCE A ACTIVE DAY TO LOWER BLOOD PRESSURE 2) ATORVASTATIN CALCIUM 80MG TAB TAKE ONE-HALF TABLET BY MOUTH ACTIVE EVERY EVENING Indication: FOR HIGH CHOLESTEROL 3) CETIRIZINE HCL 10MG TAB TAKE ONE TABLET BY MOUTH ONCE A DAY ACTIVE FOR ALLERGIES 4) FUROSEMIDE 40MG TAB TAKE ONE TABLET BY MOUTH EVERY MORNING ACTIVE Indication: FOR FLUID RETENTION (EDEMA) 5) GLIPIZIDE 5MG TAB TAKE ONE TABLET BY MOUTH TWICE A DAY TAKE ACTIVE 30 MINUTES BEFORE EATING. Indication: FOR DIABETES 6) LISINOPRIL 40MG TAB TAKE ONE TABLET BY MOUTH ONCE A DAY FOR ACTIVE (S) HEART OR BLOOD PRESSURE 7) METOPROLOL TARTRATE 50MG TAB TAKE ONE AND ONE-HALF TABLETS ACTIVE (S) BY MOUTH TWICE A DAY . TAKE WITH OR IMMEDIATELY FOLLOWING FOOD. 50mg bid Indication: FOR HIGH BLOOD PRESSURE 8) OMEPRAZOLE 20MG EC CAP TAKE ONE CAPSULE BY MOUTH TWO TIMES A ACTIVE DAY BEFORE MEALS TO LOWER STOMACH ACID. TAKE 30 MINUTES PRIOR TO FOOD. 9) SPIRONOLACTONE 25MG TAB TAKE ONE TABLET BY MOUTH ONCE A DAY ACTIVE (S) *WATER PILL* Indication: FOR HIGH BLOOD PRESSURE 10) TICAGRELOR 90MG TAB TAKE ONE TABLET BY MOUTH TWICE A DAY ACTIVE Active Non-VA Medications Status 1) Non-VA ASPIRIN 81MG EC TAB 81MG BY MOUTH ACTIVE 2) Non-VA CHOLECALCIF 25MCG (D3-1,000UNIT) TAB 1000UNIT BY ACTIVE MOUTH ONCE A DAY also on rosuvastatin 40mg mohan 25 mcg mag oxide 400mg Physical exam: Temperature: 97.5 F [36.4 C] (07/20/2024 12:07) Blood Pressure: 134/67 (07/20/2024 12:07) Pulse: 71 (07/20/2024 12:07) Respirations: 18 (07/20/2024 12:07) O2 Saturation: 97% (07/20/2024 12:07) Weight: 213.2 lb [96.71 kg] (07/20/2024 12:07) Height: 70 in [177.8 cm] (07/20/2024 12:07) General:84 MALENOT OR NAD, WNWD HEENT: sclera anicteric NECK: Supple, no thyromegaly LUNGS: CTAB, regular unlabored CV: RRR, S1 S2, no S3 S4 or murmurs ABD: round/non distended, +BS EXT: trace to 1+ edema, color normal for race MOOD: appropriate, pleasant FRANKFURTER INSPECTOR: non focal Lab Data: CBC: WBC 9.4 10*3/uL 11/01/2023 15:47 RBC 4.75 10*6/uL 11/01/2023 15:47 HGB 14.7 g/dL 11/01/2023 15:47 HCT 43.1 % 11/01/2023 15:47 MCV 90.7 fL 11/01/2023 15:47 MCH 30.9 pg 11/01/2023 15:47 MCHC 34.1 g/dL 11/01/2023 15:47 RDW 13.0 % 11/01/2023 15:47 PLT 166 10*3/uL 11/01/2023 15:47 MPV 11.1 fL 11/01/2023 15:47 NEUTROPHILS, AUTO % 56 % 11/01/2023 15:47 LYMPHOCYTES, AUTO % 26 % 11/01/2023 15:47 MONOCYTES, AUTO % 9 % 11/01/2023 15:47 EOSINOPHILS, AUTO % 8 % 11/01/2023 15:47 BASOPHILS, AUTO % 1 % 11/01/2023 15:47 NEUTROPHILS, ABSOLUTE 5.26 10*3/uL 11/01/2023 15:47 LYMPHOCYTES, ABSOLUTE 2.43 10*3/uL 11/01/2023 15:47 MONOCYTES, ABSOLUTE 0.84 H 10*3/uL 11/01/2023 15:47 EOSINOPHILS, ABSOLUTE 0.76 H 10*3/uL 11/01/2023 15:47 BASOPHILS, ABSOLUTE 0.08 10*3/uL 11/01/2023 15:47 Renal Function Panel: SODIUM 140 mEq/L 11/01/2023 15:47 POTASSIUM 4.4 mEq/L 11/01/2023 15:47 CHLORIDE 103 mEq/L 11/01/2023 15:47 UREA NITROGEN 40.0 H mg/dL 11/01/2023 15:47 CREATININE 1.95 H mg/dL 11/01/2023 15:47 CALCIUM 9.9 mg/dL 11/01/2023 15:47 CARBON DIOXIDE 27 mEq/L 11/01/2023 15:47 GLUCOSE 79 mg/dL 11/01/2023 15:47 EGFR (CKD-EPI 2020) 33.51 11/01/2023 15:47 ALBUMIN 3.9 g/dL 11/01/2023 15:47 PHOSPHOROUS 3.4 mg/dL 11/01/2022 20:40 Intact PTH: No VITAMIN D 25 HYDROXY EO data found Anemia Labs: IRON 143 ug/dL 02/08/2023 14:36 IRON SATURATION 41 %SAT 02/08/2023 14:36 TIBC 346 ug/dL 02/08/2023 14:36 0 FERRITIN 251.40 ng/mL 02/08/2023 14:36 Urine Studies: URINE COLOR Light-Yellow 11/01/2023 15:51 APPEARANCE Clear 11/01/2023 15:51 U.PH 6.5 11/01/2023 15:51 U.BILIRUBIN Negative mg/dL 11/01/2023 15:51 U.NITRITE Negative mg/dL 11/01/2023 15:51 URINE RBC/HPF 2 /HPF 11/01/2023 15:51 URINE WBC/HPF 1 /HPF 11/01/2023 15:51 CREATuF: 66.3 (11/01/23 15:51) M/CREAT: 2602 (11/01/23 15:51) MICRAL: 1725 (11/01/23 15:51) No data available for: US RENAL COMPLETE Impression for US RENAL COMPLETE, 08/14/21, case [id number] Bilateral nonobstructing renal calculi. Assessment/Recommendations #CKD Stage 3bA3- likely from DM-2/HTN, cardio renal creat trending egfr on most recent lab at in October, was 2.14 Jun 20 at [facility] from records seen in [facility] m/creat 2602, is being followed by [facility] for MGUS, will requantify proteinuria currently on lisinopril and spironolactone for cardiorenal protection, will continue will continue lasix for volume control counselled on measures to maintain kidney health to include avoiding nsaids, quitting cigarette smoking and keeping bp and bs at goal. #HTN/Edema - bp at goal goal will continue current bp regimen counselled sodium restriction educated on steps to check bp accurately. #Secondary hyperparathyroidism of renal disease- alb 2.9 on most recent lab from [facility], not at goal, will place consult to dietitian for evaluation k 4.3, mag 1.8, phos 3.7 at goal na 131 not at goal continue mohan to replete vitamin d, will check level lab result pending for this visit #Anemia - hgb 12.8 on most recent lab from [facility], not anemic #Acid-Base - bicarb 27; no indication for supplementation #Dialysis access planning will start dialysis access planning when indicated egfr around 20. rtc in 3 months /michael/ SUPRIYA MOLINA APRN DOCUMENT ADVISOR-BC NURSE PRACTITIONER Signed: 07/20/2024 13:21 07/20/2024 ADDENDUM STATUS: COMPLETED lab reviewed creat 3.88, electrolytes, hgb, bicarb at goal call placed to 's daughter and lab result reviewed and that kidney function worsening and worrisome, daughter said he does not hydrate and that his lower ext edema is due to immobility- all he does is sit per daughter I counselled increasing hydration and that i will cc cardiology to note to see if we can back off on diuretics Lab Data: CBC: WBC 8.4 10*3/uL 07/20/2024 13:17 RBC 3.84 [...] 13:17 BASOPHILS, ABSOLUTE 0.04 10*3/uL 07/20/2024 13:17 Renal Function Panel: SODIUM 136 mEq/L 07/20/2024 13:17 POTASSIUM 4.3 mEq/L 07/20/2024 13:17 CHLORIDE 98 mEq/L 07/20/2024 13:17 UREA NITROGEN 53.0 H mg/dL 07/20/2024 13:17 CREATININE 3.88 H mg/dL 07/20/2024 13:17 CALCIUM 9.8 mg/dL 07/20/2024 13:17 CARBON DIOXIDE 27 mEq/L 07/20/2024 13:17 GLUCOSE 220 H mg/dL 07/20/2024 13:17 EGFR (CKD-EPI 2020) 14.6 L* 07/20/2024 13:17 ALBUMIN 3.7 g/dL 07/20/2024 13:17 PHOSPHOROUS 3.3 mg/dL 07/20/2024 13:17 Intact PTH: VITAMIN D, 25-HYDROXY 37.1 ng/mL 07/20/2024 13:17 Anemia Labs: IRON 169 ug/dL 07/20/2024 13:16 IRON SATURATION 55 H %SAT 07/20/2024 13:16 TIBC 308 ug/dL 07/20/2024 13:16 0 FERRITIN 400.00 H ng/mL 07/20/2024 13:16 a/p creat worsening patient currently on furosemide 40mg and spironolactone 25mg daily, hesitant to adjust diuretic due to recent non-STEMI/PCI, daughter said he is not hydrating, wondering if spironolactone dose can be decreased to see if renal function improves will cc cardiology dr. Camilo Metz to note for notification dialysis access planning will schedule Kidney Class /michael/ SUPRIYA DAILEY NURSE PRACTITIONER Signed: 07/20/2024 17:19 Receipt Acknowledged By: 07/30/2024 10:41 /michael/ Camilo Metz MD Cardiology Physician 07/30/2024 ADDENDUM STATUS: COMPLETED spoke w 's daughter who said patient obtained lab w a home health agency on the 24 of July, his creat was 3.36 and bun 42 which is an improvement in kidney function. /michael/ ASHLIE MARROQUIN APRN, RICKEY NURSE PRACTITIONER Signed: 07/30/2024 09:56 CAMILO METZ [facility] Jul 20, 2024 05:05 PM ADDENDUM: LOCAL TITLE: Addendum STANDARD TITLE: ADDENDUM DATE OF NOTE: JUL 20, 2024@17:05:17 ENTRY DATE: JUL 20, 2024@17:05:18 AUTHOR: SUKHDEV MOLINA EXP COSIGNER: URGENCY: STATUS: COMPLETED lab reviewed creat 3.88, electrolytes, hgb, bicarb at goal call placed to 's daughter and lab result reviewed and that kidney function worsening and worrisome, daughter said he does not hydrate and that his lower ext edema is due to immobility- all he does is sit per daughter I counselled increasing hydration and that i will cc cardiology to note to see if we can back off on diuretics Lab Data: CBC: WBC 8.4 10*3/uL 07/20/2024 13:17 RBC 3.84 [...] 13:17 BASOPHILS, ABSOLUTE 0.04 10*3/uL 07/20/2024 13:17 Renal Function Panel: SODIUM 136 mEq/L 07/20/2024 13:17 POTASSIUM 4.3 mEq/L 07/20/2024 13:17 CHLORIDE 98 mEq/L 07/20/2024 13:17 UREA NITROGEN 53.0 H mg/dL 07/20/2024 13:17 CREATININE 3.88 H mg/dL 07/20/2024 13:17 CALCIUM 9.8 mg/dL 07/20/2024 13:17 CARBON DIOXIDE 27 mEq/L 07/20/2024 13:17 GLUCOSE 220 H mg/dL 07/20/2024 13:17 EGFR (CKD-EPI 2020) 14.6 L* 07/20/2024 13:17 ALBUMIN 3.7 g/dL 07/20/2024 13:17 PHOSPHOROUS 3.3 mg/dL 07/20/2024 13:17 Intact PTH: VITAMIN D, 25-HYDROXY 37.1 ng/mL 07/20/2024 13:17 Anemia Labs: IRON 169 ug/dL 07/20/2024 13:16 IRON SATURATION 55 H %SAT 07/20/2024 13:16 TIBC 308 ug/dL 07/20/2024 13:16 0 FERRITIN 400.00 H ng/mL 07/20/2024 13:16 a/p creat worsening patient currently on furosemide 40mg and spironolactone 25mg daily, hesitant to adjust diuretic due to recent non-STEMI/PCI, daughter said he is not hydrating, wondering if spironolactone dose can be decreased to see if renal function improves will cc cardiology dr. Camilo Metz to note for notification dialysis access planning will schedule Kidney Class /michael/ SUPRIYA MOLINA APRN DOCUMENT ADVISOR-BC NURSE PRACTITIONER Signed: 07/20/2024 17:19 Receipt Acknowledged By: 07/30/2024 10:41 /michael/ Camilo Metz MD Cardiology Physician --- Original Document --- 07/20/24 NEPHROLOGY OUTPATIENT FOLLOW UP STL: Subjective: 84yo w pmhx of HTN,OA, DMT2, MGUS, CABG, PCI w stent placement and ckd seen in renal clinic. Last clinic visit was July 09 on phone. Here w son in law for follow up visit. Has chest pain on exertion otherwise no chest pain. He denied n/v, blood in urine or stool or painful urination. still smokes 1-2 packs of cigarette/day. Also acknoweledged taking Aleve for pain. said he was told to see vascular surgery for poor circulation to his lower ext and wondering the state of his kidney after his recent cardiac event. I discussed to repeat lab today. Educated on measures to maintain kidney health. He is hoping he will never need dialysis but will consider treatment if absolutely indicated. Home bp log systolic in the 100-160, not quite sure if he taking correctly. Home bs log usually below 200 PROBLEM LIST: 1) Essential hypertension (SNOMED CT 99456426) 2) Allergies * (ICD-9-CM 995.3) 3) Osteoarthritis * (ICD-9-CM 715.90) comment: R knee and hip 4) Tobacco dependence syndrome (SNOMED CT 24417582) 5) Mixed hyperlipidemia (SNOMED CT 645362458) 6) Erectile dysfunction (SNOMED CT 266764552) 7) COR ATHEROSCL NATV C VSL 8) Postsurgical Aortocoronary Bypass Status (ICD-9-CM V45.81) 9) CONSTIPATION, unspecified (ICD-9-CM 564.00) 10) Coronary artery disease (SNOMED CT 55451219) comment: CABG in 2004 for 3-vessel disease (LAD 60%, LCfx 90%, RC100 11) Gynecomastia 12) Gynecomastia 13) Chronic kidney disease stage 3B 14) Essential hypertension 15) Renal osteodystrophy 16) Type 2 diabetes mellitus well controlled 17) Monoclonal gammopathy 18) Chronic kidney disease stage 3B 19) Cerebral infarction 20) Exposure to potentially hazardous substance ROS none significant except as stated above Outpatient Medications: Active Outpatient Medications (including Supplies): Active Outpatient Medications Status 1) AMLODIPINE BESYLATE 10MG TAB TAKE ONE TABLET BY MOUTH ONCE A ACTIVE DAY TO LOWER BLOOD PRESSURE 2) ATORVASTATIN CALCIUM 80MG TAB TAKE ONE-HALF TABLET BY MOUTH ACTIVE EVERY EVENING Indication: FOR HIGH CHOLESTEROL 3) CETIRIZINE HCL 10MG TAB TAKE ONE TABLET BY MOUTH ONCE A DAY ACTIVE FOR ALLERGIES 4) FUROSEMIDE 40MG TAB TAKE ONE TABLET BY MOUTH EVERY MORNING ACTIVE Indication: FOR FLUID RETENTION (EDEMA) 5) GLIPIZIDE 5MG TAB TAKE ONE TABLET BY MOUTH TWICE A DAY TAKE ACTIVE 30 MINUTES BEFORE EATING. Indication: FOR DIABETES 6) LISINOPRIL 40MG TAB TAKE ONE TABLET BY MOUTH ONCE A DAY FOR ACTIVE (S) HEART OR BLOOD PRESSURE 7) METOPROLOL TARTRATE 50MG TAB TAKE ONE AND ONE-HALF TABLETS ACTIVE (S) BY MOUTH TWICE A DAY . TAKE WITH OR IMMEDIATELY FOLLOWING FOOD. 50mg bid Indication: FOR HIGH BLOOD PRESSURE 8) OMEPRAZOLE 20MG EC CAP TAKE ONE CAPSULE BY MOUTH TWO TIMES A ACTIVE DAY BEFORE MEALS TO LOWER STOMACH ACID. TAKE 30 MINUTES PRIOR TO FOOD. 9) SPIRONOLACTONE 25MG TAB TAKE ONE TABLET BY MOUTH ONCE A DAY ACTIVE (S) *WATER PILL* Indication: FOR HIGH BLOOD PRESSURE 10) TICAGRELOR 90MG TAB TAKE ONE TABLET BY MOUTH TWICE A DAY ACTIVE Active Non-VA Medications Status 1) Non-VA ASPIRIN 81MG EC TAB 81MG BY MOUTH ACTIVE 2) Non-VA CHOLECALCIF 25MCG (D3-1,000UNIT) TAB 1000UNIT BY ACTIVE MOUTH ONCE A DAY also on rosuvastatin 40mg mohan 25 mcg mag oxide 400mg Physical exam: Temperature: 97.5 F [36.4 C] (07/20/2024 12:07) Blood Pressure: 134/67 (07/20/2024 12:07) Pulse: 71 (07/20/2024 12:07) Respirations: 18 (07/20/2024 12:07) O2 Saturation: 97% (07/20/2024 12:07) Weight: 213.2 lb [96.71 kg] (07/20/2024 12:07) Height: 70 in [177.8 cm] (07/20/2024 12:07) General:84 MALENOT OR NAD, WNWD HEENT: sclera anicteric NECK: Supple, no thyromegaly LUNGS: CTAB, regular unlabored CV: RRR, S1 S2, no S3 S4 or murmurs ABD: round/non distended, +BS EXT: trace to 1+ edema, color normal for race MOOD: appropriate, pleasant FRANKFURTER INSPECTOR: non focal Lab Data: CBC: WBC 9.4 10*3/uL 11/01/2023 15:47 RBC 4.75 10*6/uL 11/01/2023 15:47 HGB 14.7 g/dL 11/01/2023 15:47 HCT 43.1 % 11/01/2023 15:47 MCV 90.7 fL 11/01/2023 15:47 MCH 30.9 pg 11/01/2023 15:47 MCHC 34.1 g/dL 11/01/2023 15:47 RDW 13.0 % 11/01/2023 15:47 PLT 166 10*3/uL 11/01/2023 15:47 MPV 11.1 fL 11/01/2023 15:47 NEUTROPHILS, AUTO % 56 % 11/01/2023 15:47 LYMPHOCYTES, AUTO % 26 % 11/01/2023 15:47 MONOCYTES, AUTO % 9 % 11/01/2023 15:47 EOSINOPHILS, AUTO % 8 % 11/01/2023 15:47 BASOPHILS, AUTO % 1 % 11/01/2023 15:47 NEUTROPHILS, ABSOLUTE 5.26 10*3/uL 11/01/2023 15:47 LYMPHOCYTES, ABSOLUTE 2.43 10*3/uL 11/01/2023 15:47 MONOCYTES, ABSOLUTE 0.84 H 10*3/uL 11/01/2023 15:47 EOSINOPHILS, ABSOLUTE 0.76 H 10*3/uL 11/01/2023 15:47 BASOPHILS, ABSOLUTE 0.08 10*3/uL 11/01/2023 15:47 Renal Function Panel: SODIUM 140 mEq/L 11/01/2023 15:47 POTASSIUM 4.4 mEq/L 11/01/2023 15:47 CHLORIDE 103 mEq/L 11/01/2023 15:47 UREA NITROGEN 40.0 H mg/dL 11/01/2023 15:47 CREATININE 1.95 H mg/dL 11/01/2023 15:47 CALCIUM 9.9 mg/dL 11/01/2023 15:47 CARBON DIOXIDE 27 mEq/L 11/01/2023 15:47 GLUCOSE 79 mg/dL 11/01/2023 15:47 EGFR (CKD-EPI 2020) 33.51 11/01/2023 15:47 ALBUMIN 3.9 g/dL 11/01/2023 15:47 PHOSPHOROUS 3.4 mg/dL 11/01/2022 20:40 Intact PTH: No VITAMIN D 25 HYDROXY EO data found Anemia Labs: IRON 143 ug/dL 02/08/2023 14:36 IRON SATURATION 41 %SAT 02/08/2023 14:36 TIBC 346 ug/dL 02/08/2023 14:36 0 FERRITIN 251.40 ng/mL 02/08/2023 14:36 Urine Studies: URINE COLOR Light-Yellow 11/01/2023 15:51 APPEARANCE Clear 11/01/2023 15:51 U.PH 6.5 11/01/2023 15:51 U.BILIRUBIN Negative mg/dL 11/01/2023 15:51 U.NITRITE Negative mg/dL 11/01/2023 15:51 URINE RBC/HPF 2 /HPF 11/01/2023 15:51 URINE WBC/HPF 1 /HPF 11/01/2023 15:51 CREATuF: 66.3 (11/01/23 15:51) M/CREAT: 2602 (11/01/23 15:51) MICRAL: 1725 (11/01/23 15:51) No data available for: US RENAL COMPLETE Impression for US RENAL COMPLETE, 08/14/21, case [id number] Bilateral nonobstructing renal calculi. 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 #HTN/Edema - bp at goal goal will continue current bp regimen counselled sodium restriction educated on steps to check bp accurately. #Secondary hyperparathyroidism of renal disease- alb 2.9 on most recent lab from [facility], not at goal, will place consult to dietitian for evaluation k 4.3, mag 1.8, phos 3.7 at goal na 131 not at goal continue mohan to replete vitamin d, will check level lab result pending for this visit #Anemia - hgb 12.8 on most recent lab from [facility], not anemic #Acid-Base - bicarb 27; no indication for supplementation #Dialysis access planning will start dialysis access planning when indicated egfr around 20. rtc in 3 months /michael/ SUPRIYA DAILEY NURSE PRACTITIONER Signed: 07/20/2024 13:21 07/30/2024 ADDENDUM STATUS: COMPLETED spoke w 's daughter who said patient obtained lab w a home health agency on the 24 of July, his creat was 3.36 and bun 42 which is an improvement in kidney function. /michael/ ASHLIE MARROQUIN APRN, RICKEY NURSE PRACTITIONER Signed: 07/30/2024 09:56 KATH MOLINA [facility] Jul 20, 2024 12:26 PM NEPHROLOGY OUTPATIENT NOTE: LOCAL TITLE: NEPHROLOGY OUTPATIENT FOLLOW UP [facility] STANDARD TITLE: NEPHROLOGY OUTPATIENT NOTE DATE OF NOTE: JUL 20, 2024@12:26 ENTRY DATE: JUL 20, 2024@12:26:34 AUTHOR: SUKHDEV MOLINA EXP COSIGNER: URGENCY: STATUS: COMPLETED NEPHROLOGY OUTPATIENT FOLLOW UP [facility] Has ADDENDA Subjective: 84yo w pmhx of HTN,OA, DMT2, MGUS, CABG, PCI w stent placement and ckd seen in renal clinic. Last clinic visit was July 09 on phone. Here w son in law for follow up visit. Has chest pain on exertion otherwise no chest pain. He denied n/v, blood in urine or stool or painful urination. still smokes 1-2 packs of cigarette/day. Also acknoweledged taking Aleve for pain. said he was told to see vascular surgery for poor circulation to his lower ext and wondering the state of his kidney after his recent cardiac event. I discussed to repeat lab today. Educated on measures to maintain kidney health. He is hoping he will never need dialysis but will consider treatment if absolutely indicated. Home bp log systolic in the 100-160, not quite sure if he taking correctly. Home bs log usually below 200 PROBLEM LIST: 1) Essential hypertension (SNOMED CT 98656643) 2) Allergies * (ICD-9-CM 995.3) 3) Osteoarthritis * (ICD-9-CM 715.90) comment: R knee and hip 4) Tobacco dependence syndrome (SNOMED CT 91878584) 5) Mixed hyperlipidemia (SNOMED CT 740645113) 6) Erectile dysfunction (SNOMED CT 760289727) 7) COR ATHEROSCL NATV C VSL 8) Postsurgical Aortocoronary Bypass Status (ICD-9-CM V45.81) 9) CONSTIPATION, unspecified (ICD-9-CM 564.00) 10) Coronary artery disease (SNOMED CT 68182956) comment: CABG in 2004 for 3-vessel disease (LAD 60%, LCfx 90%, RC100 11) Gynecomastia 12) Gynecomastia 13) Chronic kidney disease stage 3B 14) Essential hypertension 15) Renal osteodystrophy 16) Type 2 diabetes mellitus well controlled 17) Monoclonal gammopathy 18) Chronic kidney disease stage 3B 19) Cerebral infarction 20) Exposure to potentially hazardous substance ROS none significant except as stated above Outpatient Medications: Active Outpatient Medications (including Supplies): Active Outpatient Medications Status 1) AMLODIPINE BESYLATE 10MG TAB TAKE ONE TABLET BY MOUTH ONCE A ACTIVE DAY TO LOWER BLOOD PRESSURE 2) ATORVASTATIN CALCIUM 80MG TAB TAKE ONE-HALF TABLET BY MOUTH ACTIVE EVERY EVENING Indication: FOR HIGH CHOLESTEROL 3) CETIRIZINE HCL 10MG TAB TAKE ONE TABLET BY MOUTH ONCE A DAY ACTIVE FOR ALLERGIES 4) FUROSEMIDE 40MG TAB TAKE ONE TABLET BY MOUTH EVERY MORNING ACTIVE Indication: FOR FLUID RETENTION (EDEMA) 5) GLIPIZIDE 5MG TAB TAKE ONE TABLET BY MOUTH TWICE A DAY TAKE ACTIVE 30 MINUTES BEFORE EATING. Indication: FOR DIABETES 6) LISINOPRIL 40MG TAB TAKE ONE TABLET BY MOUTH ONCE A DAY FOR ACTIVE (S) HEART OR BLOOD PRESSURE 7) METOPROLOL TARTRATE 50MG TAB TAKE ONE AND ONE-HALF TABLETS ACTIVE (S) BY MOUTH TWICE A DAY . TAKE WITH OR IMMEDIATELY FOLLOWING FOOD. 50mg bid Indication: FOR HIGH BLOOD PRESSURE 8) OMEPRAZOLE 20MG EC CAP TAKE ONE CAPSULE BY MOUTH TWO TIMES A ACTIVE DAY BEFORE MEALS TO LOWER STOMACH ACID. TAKE 30 MINUTES PRIOR TO FOOD. 9) SPIRONOLACTONE 25MG TAB TAKE ONE TABLET BY MOUTH ONCE A DAY ACTIVE (S) *WATER PILL* Indication: FOR HIGH BLOOD PRESSURE 10) TICAGRELOR 90MG TAB TAKE ONE TABLET BY MOUTH TWICE A DAY ACTIVE Active Non-VA Medications Status 1) Non-VA ASPIRIN 81MG EC TAB 81MG BY MOUTH ACTIVE 2) Non-VA CHOLECALCIF 25MCG (D3-1,000UNIT) TAB 1000UNIT BY ACTIVE MOUTH ONCE A DAY also on rosuvastatin 40mg mohan 25 mcg mag oxide 400mg Physical exam: Temperature: 97.5 F [36.4 C] (07/20/2024 12:07) Blood Pressure: 134/67 (07/20/2024 12:07) Pulse: 71 (07/20/2024 12:07) Respirations: 18 (07/20/2024 12:07) O2 Saturation: 97% (07/20/2024 12:07) Weight: 213.2 lb [96.71 kg] (07/20/2024 12:07) Height: 70 in [177.8 cm] (07/20/2024 12:07) General:84 MALENOT OR NAD, WNWD HEENT: sclera anicteric NECK: Supple, no thyromegaly LUNGS: CTAB, regular unlabored CV: RRR, S1 S2, no S3 S4 or murmurs ABD: round/non distended, +BS EXT: trace to 1+ edema, color normal for race MOOD: appropriate, pleasant FRANKFURTER INSPECTOR: non focal Lab Data: CBC: WBC 9.4 10*3/uL 11/01/2023 15:47 RBC 4.75 10*6/uL 11/01/2023 15:47 HGB 14.7 g/dL 11/01/2023 15:47 HCT 43.1 % 11/01/2023 15:47 MCV 90.7 fL 11/01/2023 15:47 MCH 30.9 pg 11/01/2023 15:47 MCHC 34.1 g/dL 11/01/2023 15:47 RDW 13.0 % 11/01/2023 15:47 PLT 166 10*3/uL 11/01/2023 15:47 MPV 11.1 fL 11/01/2023 15:47 NEUTROPHILS, AUTO % 56 % 11/01/2023 15:47 LYMPHOCYTES, AUTO % 26 % 11/01/2023 15:47 MONOCYTES, AUTO % 9 % 11/01/2023 15:47 EOSINOPHILS, AUTO % 8 % 11/01/2023 15:47 BASOPHILS, AUTO % 1 % 11/01/2023 15:47 NEUTROPHILS, ABSOLUTE 5.26 10*3/uL 11/01/2023 15:47 LYMPHOCYTES, ABSOLUTE 2.43 10*3/uL 11/01/2023 15:47 MONOCYTES, ABSOLUTE 0.84 H 10*3/uL 11/01/2023 15:47 EOSINOPHILS, ABSOLUTE 0.76 H 10*3/uL 11/01/2023 15:47 BASOPHILS, ABSOLUTE 0.08 10*3/uL 11/01/2023 15:47 Renal Function Panel: SODIUM 140 mEq/L 11/01/2023 15:47 POTASSIUM 4.4 mEq/L 11/01/2023 15:47 CHLORIDE 103 mEq/L 11/01/2023 15:47 UREA NITROGEN 40.0 H mg/dL 11/01/2023 15:47 CREATININE 1.95 H mg/dL 11/01/2023 15:47 CALCIUM 9.9 mg/dL 11/01/2023 15:47 CARBON DIOXIDE 27 mEq/L 11/01/2023 15:47 GLUCOSE 79 mg/dL 11/01/2023 15:47 EGFR (CKD-EPI 2020) 33.51 11/01/2023 15:47 ALBUMIN 3.9 g/dL 11/01/2023 15:47 PHOSPHOROUS 3.4 mg/dL 11/01/2022 20:40 Intact PTH: No VITAMIN D 25 HYDROXY EO data found Anemia Labs: IRON 143 ug/dL 02/08/2023 14:36 IRON SATURATION 41 %SAT 02/08/2023 14:36 TIBC 346 ug/dL 02/08/2023 14:36 0 FERRITIN 251.40 ng/mL 02/08/2023 14:36 Urine Studies: URINE COLOR Light-Yellow 11/01/2023 15:51 APPEARANCE Clear 11/01/2023 15:51 U.PH 6.5 11/01/2023 15:51 U.BILIRUBIN Negative mg/dL 11/01/2023 15:51 U.NITRITE Negative mg/dL 11/01/2023 15:51 URINE RBC/HPF 2 /HPF 11/01/2023 15:51 URINE WBC/HPF 1 /HPF 11/01/2023 15:51 CREATuF: 66.3 (11/01/23 15:51) M/CREAT: 2602 (11/01/23 15:51) MICRAL: 1725 (11/01/23 15:51) No data available for: US RENAL COMPLETE Impression for US RENAL COMPLETE, 08/14/21, case [id number] Bilateral nonobstructing renal calculi. 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 #HTN/Edema - bp at goal goal will continue current bp regimen counselled sodium restriction educated on steps to check bp accurately. #Secondary hyperparathyroidism of renal disease- alb 2.9 on most recent lab from [facility], not at goal, will place consult to dietitian for evaluation k 4.3, mag 1.8, phos 3.7 at goal na 131 not at goal continue mohan to replete vitamin d, will check level lab result pending for this visit #Anemia - hgb 12.8 on most recent lab from [facility], not anemic #Acid-Base - bicarb 27; no indication for supplementation #Dialysis access planning will start dialysis access planning when indicated egfr around 20. rtc in 3 months /michael/ SUPRIYA DOWLING-THEA NURSE PRACTITIONER Signed: 07/20/2024 13:21 07/20/2024 ADDENDUM STATUS: COMPLETED lab reviewed creat 3.88, electrolytes, hgb, bicarb at goal call placed to 's daughter and lab result reviewed and that kidney function worsening and worrisome, daughter said he does not hydrate and that his lower ext edema is due to immobility- all he does is sit per daughter I counselled increasing hydration and that i will cc cardiology to note to see if we can back off on diuretics Lab Data: CBC: WBC 8.4 10*3/uL 07/20/2024 13:17 RBC 3.84 [...] 13:17 BASOPHILS, ABSOLUTE 0.04 10*3/uL 07/20/2024 13:17 Renal Function Panel: SODIUM 136 mEq/L 07/20/2024 13:17 POTASSIUM 4.3 mEq/L 07/20/2024 13:17 CHLORIDE 98 mEq/L 07/20/2024 13:17 UREA NITROGEN 53.0 H mg/dL 07/20/2024 13:17 CREATININE 3.88 H mg/dL 07/20/2024 13:17 CALCIUM 9.8 mg/dL 07/20/2024 13:17 CARBON DIOXIDE 27 mEq/L 07/20/2024 13:17 GLUCOSE 220 H mg/dL 07/20/2024 13:17 EGFR (CKD-EPI 2020) 14.6 L* 07/20/2024 13:17 ALBUMIN 3.7 g/dL 07/20/2024 13:17 PHOSPHOROUS 3.3 mg/dL 07/20/2024 13:17 Intact PTH: VITAMIN D, 25-HYDROXY 37.1 ng/mL 07/20/2024 13:17 Anemia Labs: IRON 169 ug/dL 07/20/2024 13:16 IRON SATURATION 55 H %SAT 07/20/2024 13:16 TIBC 308 ug/dL 07/20/2024 13:16 0 FERRITIN 400.00 H ng/mL 07/20/2024 13:16 a/p creat worsening patient currently on furosemide 40mg and spironolactone 25mg daily, hesitant to adjust diuretic due to recent non-STEMI/PCI, daughter said he is not hydrating, wondering if spironolactone dose can be decreased to see if renal function improves will cc cardiology dr. Camilo Metz to note for notification dialysis access planning will schedule Kidney Class /es/ SUPRIYA MOLINA APRN DOCUMENT ADVISOR-BC NURSE PRACTITIONER Signed: 07/20/2024 17:19 Receipt Acknowledged By: 07/30/2024 10:41 /michael/ Camilo Metz MD Cardiology Physician 07/30/2024 ADDENDUM STATUS: COMPLETED spoke w 's daughter who said patient obtained lab w a home health agency on the 24 of July, his creat was 3.36 and bun 42 which is an improvement in kidney function. /michael/ SUPRIYA MOLINA APRN, DOCUMENT ADVISOR-BC, DNP NURSE PRACTITIONER Signed: 07/30/2024 09:56 07/30/2024 ADDENDUM STATUS: COMPLETED Spironolactone is not a strong diuretic, it will not have much impact on edema but renal function has to be monitored in view of CKD. He is on lasix 40 mg, had mild edema on last appt with me. You may titrate it as needed based on edema and renal function. Amlodipine may also be contributing to his edema. /michael/ Camilo Metz MD Cardiology Physician Signed: 07/30/2024 10:46 Receipt Acknowledged By: * AWAITING SIGNATURE * SUPRIYA MOLINA [facility]
--- OUTSIDE RECORDS SUMMARY | 2024-08-28 18:22 | XMS_ITS | Encounter Summary ---
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 Date/Time Encounter Type Encounter Description Reason Provider Source Jul 17, 2024 11:00 AM OFFICE O/P EST HI 40 MIN PRIMARY CARE/MEDICINE ICD-10-CM I10 Essential (primary) hypertension CARMELLA STEPHEN Jagjit Encounter Template Text not used by [place] Assessments - Encounter Diagnoses This section includes the primary and secondary diagnoses documented for the Encounter. Date/Time Primary/Secondary Diagnosis Diagnosis Name Provider Source Jul 18, 2024 04:29 PM PRIMARY Essential (primary) hypertension CARMELLA STEPHEN [facility] Jul 18, 2024 04:29 PM SECONDARY Athscl heart disease of [place] coronary artery w/o ang pctrs PITERLexiiCARMELLA [facility] Jul 18, 2024 04:29 PM SECONDARY Cerebral infarction, unspecified PITERLexiiCARMELLA [facility] Jul 18, 2024 04:29 PM SECONDARY Chronic kidney disease, stage 3b CARMELLA STEPHEN [facility] Jul 18, 2024 04:29 PM SECONDARY Mixed hyperlipidemia CARMELLA STEPHEN [facility] Jul 18, 2024 04:29 PM SECONDARY Monoclonal gammopathy CARMELLA STEPHEN [facility] Jul 18, 2024 04:29 PM SECONDARY Nicotine dependence, cigarettes, uncomplicated CARMELLA STEPHEN [facility] Jul 18, 2024 04:29 PM SECONDARY Renal osteodystrophy PITERLexiiCARMELLA [facility] Jul 18, 2024 04:29 PM SECONDARY Type 2 diabetes mellitus without complications PITERLexiiCARMELLA [facility] Plan of Treatment: Future Appointments (+ 6 months) and Future Tests (+/- 45 days) The Plan of Treatment section includes future care activities for the patient from all [place] treatmentfacilities. This section includes future appointments and future orders which are active, pending or scheduled. Future Appointments This section includes appointments that were scheduled to occur 6 months from the date of the Encounter, up to a maximum of 20 appointments. The data comes from all [facility] facilities. Appointment Date/Time Appointment Type Appointme nt Facility Name Jul 18, 2024 11:00 AM AMBULATORY - MEDICINE [facility] Jul 20, 2024 12:30 PM AMBULATORY - MEDICINE [facility] Aug 22, 2024 11:00 AM AMBULATORY - MEDICINE [facility] Aug 24, 2024 02:00 PM AMBULATORY - MEDICINE [facility] Sep 24, 2024 02:00 PM AMBULATORY - MEDICINE [facility] November 01, 2024 03:00 PM AMBULATORY - MEDICINE [facility] Dec 28, 2024 02:00 PM AMBULATORY - MEDICINE [facility] Active, Pending, and Scheduled Orders This section includes a listing of several types of active, pending, and scheduled orders, including clinic medications orders, diagnostic test orders, procedure orders and consult orders; where the start date of the order is 45 days before the date of the Encounter or 45 days after the date of theEncounter. The data comes from all [facility] facilities. Test Date/Time Test Type Test Details Facility Name Jul 03, 2024 03:14 PM Consult Order [facility] Jul 09, [facility]24 12:00 AM Laboratory - Chemi stry Order MICRAL/CREAT PROFILE (STL) URINE YELLOW [facility] Jul 09, 2024 12:00 AM Laboratory - Chemi stry Order PROTEIN URINE URINE YELLOW SP [facility] Jul 18, 2024 10:57 AM Procedure Order CP EKG STL CP [facility] - [facility] Aug 24, 2024 06:19 PM Consult Order VASCULAR S URG I CLAUDICATING/NON-HEAL ING ULCER OUTPT [facility] Lab Results: +/- 30 days of the [...] Range Comment Jul 20, 2024 01:17 PM [facility] VITAMIN D, 25-HYDROXY Specimen Type: SERUM No comment entered. Ordering Provider: Pricila MOLINA Report Released Date/Time: Jul 09, 2024 02:40 PM Reporting Lab: [address] [address] Performing Lab: [address] [address] VITAMIN D, 25-HYDROXY 37.1 ng/mL 30-96 Jul 20, 2024 01:17 PM [facility] PTH, INTACT (STL) Specimen Type: SERUM No comment entered. Ordering Provider: Pricila MOLINA Report Released Date/Time: Jul 09, 2024 02:40 PM Reporting Lab: [address] [address] Performing Lab: [address] [address] PTH, INTACT (STL) 89.50 pg/mL H 8.7-77.7 Jul 20, 2024 01:17 PM [facility] RENAL PANEL Specimen Type: PLASMA Comment: No hemolysis noted. Ordering Provider: Pricila MOLINA Report Released Date/Time: Jul 09, 2024 02:40 PM Reporting Lab: [address] [address] Performing Lab: [address] [address] CREATININE 3.88 mg/dL H 0.7-1.3 UREA NITROGEN 53.0 mg/dL H 9.0-25.0 GLUCOSE 220 mg/dL H 72-99 SODIUM 136 meq/L 136-145 POTASSIUM 4.3 meq/L 3.5-5 CHLORIDE 98 meq/L 98-107 CARBON DIOXIDE 27 meq/L 22-31 CALCIUM 9.8 mg/dL 8.4-10.4 PHOSPHOROUS 3.3 mg/dL 2.3-4.7 ALBUMIN 3.7 g/dL 3.4-5 EGFR (CKD-EPI 2020) 14.6 LL >60 Jul 20, 2024 01:17 PM [facility] CBC Specimen Type: BLOOD No comment entered. Ordering Provider: Pricila MOLINA Report Released Date/Time: Jul 09, 2024 02:40 PM Reporting Lab: [address] [address] Performing Lab: [address] [address] WBC 8.4 10*3/uL 3.6-11.2 RBC 3.84 10*6/uL [...] 10*3/uL 0.00-0.20 Jul 20, 2024 01:16 PM [facility] FERRITIN Specimen Type: SERUM No comment entered. Ordering Provider: Pricila MOLINA Report Released Date/Time: Jul 20, 2024 12:55 PM Reporting Lab: [address] [address] Performing Lab: [address] [address] FERRITIN 400.00 ng/mL H 22-275 Jul 20, 2024 01:16 PM [facility] IRON/TIBC PROFILE Specimen Type: SERUM No comment entered. Ordering Provider: Pricila MOLINA Report Released Date/Time: Jul 20, 2024 12:55 PM Reporting Lab: [facility] [address] [facility] [address] Performing Lab: [facility] [address] [facility] [address] TIBC 308 ug/dL 250-450 TRANSFERRIN 246 mg/dL 163-344 IRON SATURATION 55 H 20-50 IRON 169 ug/dL 65-175 Jul 20, 2024 01:16 PM [facility] MAGNESIUM Specimen Type: PLASMA No comment entered. Ordering Provider: Pricila MOLINA Report Released Date/Time: Jul 20, 2024 12:56 PM Reporting Lab: [place] [address] [facility] [address] Performing Lab: [place] [address] [facility] [address] MAGNESIUM 1.9 mg/dL 1.6-2.6 Vital Signs: All taken on the encounter date This section contains inpatient and outpatient Vital Signs collected on the date of the Encounter. Date/Time Temperature Pulse Blood Pressure Respiratory Rate SP02 Pain Height Weight Body Mass Index Source Jul 17, 2024 10:32 AM 97.4 20 124/61 14 97 0 213 31 [facility] Social History: Smoking Status (Most current) and Tobacco Use (All prior to encounter date) This section includes the most current, and the historical, smoking and tobacco- related health factors from the [place] facility where the Encounter took place. Current Smoking Status This section includes the most current smoking, or tobacco-related health factor, from the [place] facility where the Encounter took place. Date/Time Current Smoking Status Comment Octavio enamorado Feb 08, 2023 02:00 PM VA-TOBACCO USER EVERY DAY [facility] Tobacco Use History This section includes a history of the smoking, or tobacco-related health factors, that were collected on or before the date of the Encounter. The data comes from the [place] facility where the Encounter took place. Date/Time Smoking Status/Tobacco Use Comment F acility Feb 08, 2023 02:00 PM VA-TOBACCO USE ADVICE [facility] Feb 08, 2023 02:00 PM VA-TOBACCO USE PIT SUPERVISOR NO [facility] Feb 08, 2023 02:00 PM VA-TOBACCO USE MED NO [facility] Feb 08, 2023 02:00 PM VA-TOBACCO USE WI 30 MIN OF WAKEUP [facility] Feb 08, 2023 02:00 PM VA-TOBACCO USER EVERY DAY [facility] Sep 08, 2021 11:00 AM VA-TOBACCO USE 30 YEARS OR MORE [facility] Sep 08, 2021 11:00 AM VA-TOBACCO USE ADVICE [facility] Sep 08, 2021 11:00 AM VA-TOBACCO USE PIT SUPERVISOR NO [facility] Sep 08, 2021 11:00 AM VA-TOBACCO USE MED NO [facility] Sep 08, 2021 11:00 AM VA-TOBACCO USE [place] 30 MIN OF WAKEUP [facility] Sep 08, 2021 11:00 AM VA-TOBACCO USER EVERY DAY [facility] Mar 12, 2019 03:39 PM VA-TOBACCO USE 30 YEARS OR MORE [facility] Mar 12, 2019 03:39 PM VA-TOBACCO USE ADVICE [facility] Mar 12, 2019 03:39 PM VA-TOBACCO USE PIT SUPERVISOR NO [facility] Mar 12, 2019 03:39 PM VA-TOBACCO USE MED NO [facility] Mar 12, 2019 03:39 PM VA-TOBACCO USE [place] 30 MIN OF WAKEUP [facility] Mar 12, 2019 03:39 PM VA-TOBACCO USER EVERY DAY [facility] Feb 02, 2018 03:18 PM VA-TOBACCO USE 30 YEARS OR MORE [facility] Feb 02, 2018 03:18 PM VA-TOBACCO USE ADVICE [facility] Feb 02, 2018 03:18 PM VA-TOBACCO USE PIT SUPERVISOR NO [facility] Feb 02, 2018 03:18 PM VA-TOBACCO USE MED NO [facility] Feb 02, 2018 03:18 PM VA-TOBACCO USE [place] 30 MIN OF WAKEUP [facility] Feb 02, 2018 03:18 PM VA-TOBACCO USER EVERY DAY [facility] Jan 30, 2018 09:59 AM CURRENT TOBACCO USER [facility] Jan 30, 2018 09:59 AM CURRENT TOBACCO US ER (NOT READY TO QUIT) [facility] Jan 30, 2018 09:59 AM TOBACCO CESSATION REFERRAL DECLINED [facility] Jan 30, 2018 09:59 AM TOBACCO MEDS OFFER ED BUT DECLINED [facility] Jan 30, 2018 09:59 AM TOBACCO USER OFFERED MEDS [facility] Aug 01, 2017 02:17 PM CURRENT TOBACCO USER [facility] Aug 01, 2017 02:17 PM CURRENT TOBACCO US ER (NOT READY TO QUIT) [facility] Aug 01, 2017 02:17 PM TOBACCO CESSATION REFERRAL DECLINED [facility] Aug 01, 2017 02:17 PM TOBACCO MEDS OFFER ED BUT DECLINED [facility] Aug 01, 2017 02:17 PM TOBACCO USER OFFERED MEDS [facility] Jan 28, 2017 02:26 PM CURRENT TOBACCO USER [facility] Jan 28, 2017 02:26 PM TOBACCO MEDS OFFER ED BUT DECLINED [facility] Aug 12, 2015 02:28 PM CURRENT TOBACCO USER [facility] Aug 12, 2015 02:28 PM TOBACCO MEDS OFFER ED BUT DECLINED [facility] November 28, 2013 10:03 AM CURRENT TOBACCO USER [facility] November 28, 2013 10:03 AM TOBACCO MEDS OFFER ED BUT DECLINED [facility] Jan 08, 2013 01:54 PM CURRENT TOBACCO USER [facility] Jan 08, 2013 01:54 PM TOBACCO MEDS OFFER ED BUT DECLINED [facility] Sep 29, 2011 08:54 AM CURRENT TOBACCO USER [facility] Sep 29, 2011 08:54 AM TOBACCO OFFERRED P T MEDS (PROVIDER) [facility] Aug 12, 2010 09:47 AM CURRENT TOBACCO USER [facility] Jul 31, 2009 01:27 PM CURRENT TOBACCO USER [facility] Jul 31, 2009 01:27 PM TOBACCO OFFERED PT MEDS (PROVIDER) [facility] Aug 09, 2008 11:25 AM CURRENT TOBACCO USER [facility] November 03, 2007 08:51 AM CURRENT TOBACCO USER [facility] November 03, 2007 08:51 AM TOBACCO OFFERRED P T MEDS (PROVIDER) [facility] Jun 13, 2007 10:53 AM CURRENT TOBACCO USER [facility] Jun 13, 2007 10:53 AM TOBACCO MEDS OFFER ED BUT DECLINED [facility] Jun 13, 2007 10:[address] OP SMOKING CLINIC [facility] November 30, 2006 01:07 PM CURRENT TOBACCO USER [facility] Jun 17, 2006 10:46 AM CURRENT TOBACCO USER [facility] Sep 24, 2005 09:53 AM CURRENT TOBACCO USER [facility] Sep 24, 2005 09:53 AM SMOKER 10-20 [facility] Sep 24, 2005 09:53 AM TOBACCO CONTEMPLATION STAGE [facility] Jan 29, 2005 09:08 AM CURRENT NON-TOBACC O USER-HX OF USE [facility] Jan 29, 2005 09:08 AM TOBACCO ACTION STAGE [facility] Mar 24, 2004 02:13 PM CURRENT TOBACCO USER [facility] Mar 24, 2004 02:13 PM SMOKER 1-2 PACKS [facility] Mar 24, 2004 02:13 PM TOBACCO PRECONTEMPLATION STAGE [facility] Advance Directives: All historical and current Section Date Range: From patient's date of to the date document was created. This section includes ALL of a patient's completed or amended [place] Advance and Rescinded Directives. The entries below indicate that a directive exists for the patient, but an actual copy is not included with this document. The data comes from all [place] facilities. Date Advance Directives Provider Source Sep 17, 2021 ADVANCE DIRECTIVE SHAHEEN,SHUBHAMMARCUS NGUYEN IS [facility] Oct 20, 2004 ADVANCE DIRECTIVE SAHIL WOLFE S [facility] Encounter Notes: All associated encounter notes This section contains the clinical notes associated to the Encounter. Date/Time Encounter Note(s) Provider Source Aug 04, 2024 05:18 PM ADDENDUM: LOCAL TITLE: Addendum STANDARD TITLE: ADDENDUM DATE OF NOTE: AUG 04, 2024@17:18:59 ENTRY DATE: AUG 04, 2024@17:19 AUTHOR: CARMELLA STEPHEN EXP COSIGNER: URGENCY: STATUS: COMPLETED Received paperwork from [facility] for patient of patient receiving home health services from the [place]. Paper signed and given to MANOJ KEVIN /michael/ CARMELLA STEPHEN M.D. PRIMARY CARE PHYSICIAN Signed: 08/04/2024 17:19 Receipt Acknowledged By: 08/07/2024 08:49 /michael/ BEN MCCOY, RN REGISTERED NURSE --- Original Document --- 07/17/24 PRIMARY CARE PROVIDER ESTABLISHED VISIT STL: [place] is a 84 year old WHITE MALE with past medical history of PMH: 1) Essential hypertension (SNOMED CT 59008857) 2) Allergies * (ICD-9-CM 995.3) 3) Osteoarthritis * (ICD-9-CM 715.90) comment: R knee and hip 4) Tobacco dependence syndrome (SNOMED CT 36627851) 5) Mixed hyperlipidemia (SNOMED CT 906015419) 6) Erectile dysfunction (SNOMED CT 690527243) 7) COR ATHEROSCL NATV C VSL 8) Postsurgical Aortocoronary Bypass Status (ICD-9-CM V45.81) 9) CONSTIPATION, unspecified (ICD-9-CM 564.00) 10) Coronary artery disease (SNOMED CT 62848318) comment: CABG in 2005 for 3-vessel disease (LAD 60%, LCfx 90%, RC100 11) Gynecomastia 12) Gynecomastia 13) Chronic kidney disease stage 3B 14) Essential hypertension 15) Renal osteodystrophy 16) Type 2 diabetes mellitus well controlled 17) Monoclonal gammopathy 18) Chronic kidney disease stage 3B 19) Cerebral infarction 20) Exposure to potentially hazardous substance History of present illness Legs hurt when walking currently hospitalized and unable to participate in phone call. Dtr was given opportunity to express her concerns regarding situation. Dtr voices concerns about 's ability to make medical decisions for himself and wonders when she may become active in making decisions on his behalf. Dtr shared a few experiences during 's recent hospitalization where she witnessed [place] being agreeable to everything providers would say, once with agreeing to morphine for a mild neck ache. 'I'm glad I was there to tell staff he just needs Tylenol, but there is no telling what else he is agreeing to'. Dtr also shared several instances when responses during conversations did not track with topic. Dtr inquiring about how to have his memory tested. brillinta 90mg bid furosemide 40mg rosuvastatin 40mg daily omeprazole 20mg bid Needs dementia workup-consult was not working Outside labs? Diet Exercise Sleep Medication compliance nonva providers: DATA Review Measurement DT TEMP PULSE RESP BP HT WT F(C) IN(CM) LB(KG)[BMI] ---- ----- ---- -- ------ 05/03/2024 15:22 160/68 05/03/2024 14:51 158/66 Measurement DT CVP POx CG CMH20(MMHG) (L/MIN)(%) IN(CM) ------ 05/03/2024 14:44 97 11/01/2023 14:40 94 Measurement DT Pain ---- 05/03/2024 14:44 0 11/01/2023 14:40 0 32.6 LABS: CREATININE 1.95 H mg/dL 11/01/2023 15:47 EGFR (CKD-EPI 2020) 33.51 11/01/2023 15:47 HGB 14.7 g/dL 11/01/2023 15:47 HGA1C 7.3 H % 11/01/2023 15:47 TRIGLYCERIDE 157 H mg/dL 11/01/2023 15:47 CHOLESTEROL 187 mg/dL 11/01/2023 15:47 HDL(New) 34 L mg/dL 11/01/2023 15:47 CALCULATED LDL 122 mg/dL 11/01/2023 15:47 AKP: 63 (11/01/23 15:47) ALB: 3.9 (11/01/23 15:47) D.BILI: 0.1 (11/01/22 20:40) GOT/AST: 15 (11/01/23 15:47) GPT/ALT: 11 (11/01/23 15:47) T.Prot: 7.2 (11/01/23 15:47) TBIL: 0.5 (11/01/23 15:47) Medication reconciliation done General: pleasant, well appearing adult male in no apparent distress HEENT: speech fluent and clear, hearing grossly intact Neck: no carotid bruits Heart: regular rate and rhythm; no murmurs, rubs, or gallops Lungs: respirations regular and non-labored; CTA BL; no wheezes, rhonchi, or rales Abdomen: soft, nontender, nondistended, bowel sounds normal Extremities: warm, well-perfused; no clubbing, cyanosis, or edema Skin: no rashes or lesions noted; good turgor Neuro: A&O x 3, gait steady and normal-based Psych: appropriate mood and affect Assessment and plan # Hypertension -elevated blood pressure 158/66on lisinopril, chlorthalidone, amlodipine and has heart rate is in the 50s so unable to add a beta-marion he does have some swelling of the extremities. Denies chest pain or shortness of breath echocardiogram ordered pending-increased from the lactone to 50 mg blood test next week to check for potassium level. Recommended weight loss and movement #CVA with stent placement inleft carotid doing well- rt leg recidual weekness after walking long distances-continue aspirin Patient encouraged to follow-up with vascular surgery # Tobacco dependence-not willing to quit at this time # Diabetes mellitus type 2 -A1c -Microalbumin creatinine ratio of - controlled -management and rx per non-VA endo -eye exam due: -micral:ordered today -foot exam: -cont lifestyle management: diet, exercise, increase acitivity -cont trend labs #CKD Stage 3b- likely from DM-2/HTN, cardio renal creat trending egfr on most recent lab at in October, was 2.14 Jun 20 at [facility] from records seen in [facility] currently on lisinopril and spironolactone for cardiorenal protection, will continue will continue lasix for volume control counselled on measures to maintain kidney health to include avoiding nsaids and keeping bp and bs at goal. #chronic kidney disease, stage 3b (44-30) CMP ordered - no NSAIDs, nephrotoxins - renally dose all medications Reviewed notes from nephrology Microalbumin creatinine ratio ordered #Anemia - hgb 12.8 on most recent lab from [facility], not anemia #Acid-Base - bicarb 27; no indication for supplementation # Hypercholesterolemia lipid profile ordered-hypertriglyceridemia 157 LDL 122 # Obesity BMI 33 Metabolic syndrome - Shared medical decision making occurred during this visit with the . - Questions answered and is agreeable with treatment plan. - All new medications discussed/reviewed with [place]/caregiver including side effects/teratogenic side effects. Advised to keep all scheduled medical and follow-up appointments. [place] was advised to seek medical treatment if symptoms do not improve and/or worsens. Time spent with patient 40 mins Follow-up visit HEALTH MAINTENANCE: CRC screen -No data available for: COLONOSCOPY CONSULT REPORT STL age 45 - 75 for average risk No PSA (LAST 10 5Y) EO data found ADMINISTERED Immunization Series Date Facility Reaction Info COVID-19 (Toptal), MRNA, LNP-S, * 2 02/17/2021 [facility]* <C> COVID-19 (PFIZER), MRNA, LNP-S, * 1 01/27/2021 [facility]* <C> INFLUENZA (HISTORICAL) 07/31/2004 [facility]* INFLUENZA (HISTORICAL) 05/10/2003 [facility]* INFLUENZA, SPLIT VIRUS, QUADRIVA* 06/12/2019 [facility] [...] [facility] PNEUMOCOCCAL CONJUGATE PCV 13 08/21/2014 [facility] PNEUMOCOCCAL, UNSPECIFIED FORMUL* 01/29/2005 [facility] TDAP 07/04/2009 No Site [facility] 12/27/2008 [facility] CONTRAINDICATED No data available REFUSED ======= Immunization Date Facility Info COVID-19 (MODERNA), MRNA, LNP-S,* 05/03/2024 [facility]* <I> COVID-19 (PFIZER), MRNA, LNP-S, * 11/01/2023 [facility]* <I> INFLUENZA, UNSPECIFIED FORMULATI* 05/03/2024 [facility] <I> TD(ADULT) UNSPECIFIED FORMULATION 02/08/2023 [facility] <I> [facility] RECOMBINANT 11/01/2023 [facility] <I> ZOSTER RECOMBINANT 02/08/2023 [facility] <I> <C> See the Detailed Immunizations Health Summary Component[DIM] for Comments <I> See the Detailed Immunizations Health Summary Component[DIM] for Additional Information * Value is truncated; see the Detailed Immunizations Health Summary Component[DIM] for complete text Annual (Male)-The patient was counseled regarding the appropriate use of alcohol, screening procedures and recommended schedule for colonoscopy, psa, cholesterol, thyroid and diabetes screening, prevention of dental and periodontal disease, diet, regular sustained exercise for at least 30 minutes 3- 4 times per week, prostate cancer screening, regular use of seat belts. Recommend dilated eye exam and glaucoma screening every 2 years or as indicated by ophthalmology Discussed and recommended Whole Health modalities include Coaching, Well-Being activities andclasses, Chiropractic, Full Body Acupuncture, Integrative Medicine,Holistic RN Care, Health Behavior Specialists, and Functional Nutrition RETURN TO CLINIC: Return to Clinic order placed SUMMARY STATEMENT: Plan of care has been discussed with including expected therapeutic benefits and potential side effects of prescribed medication and treatments. verbalizes understanding and is in agreement with the plan of care. Patient was instructed to keep all scheduled appointments and contact men's designer for any additional problems. /grady STEPHEN M.D. PRIMARY CARE PHYSICIAN Signed: 07/18/2024 16:29 08/04/2024 ADDENDUM STATUS: COMPLETED Received basal metabolic panel results from [facility] dated July 25, 2024 Sodium 135 low Potassium 3.9 Glucose 197 BUN 42 Creatinine 3.36 eGFR 18 Patient is seeing nephrology in the [place]. will alert team /grady STEPHEN M.D. PRIMARY CARE PHYSICIAN Signed: 08/04/2024 17:14 Receipt Acknowledged By: 08/06/2024 07:03 /ASHLIE Gardner APRN, DNP NURSE PRACTITIONER CARMELLA STEPHEN [facility] Aug 04, 2024 05:11 PM ADDENDUM: LOCAL TITLE: Addendum STANDARD TITLE: ADDENDUM DATE OF NOTE: AUG 04, 2024@17:11:40 ENTRY DATE: AUG 04, 2024@17:11:41 AUTHOR: CARMELLA STEPHEN EXP COSIGNER: URGENCY: STATUS: COMPLETED Received basal metabolic panel results from [facility] dated July 25, 2024 Sodium 135 low Potassium 3.9 Glucose 197 BUN 42 Creatinine 3.36 eGFR 18 Patient [place] seeing neph[place] in the [place]. will alert team /grady STEPHEN M.D. PRIMARY CARE PHYSICIAN Signed: 08/04/2024 17:14 Receipt Acknowledged By: 08/06/2024 07:03 /JOSEY Gardner APRN-BC, RICKEY NURSE PRACTITIONER --- Original Document --- 07/17/24 PRIMARY CARE PROVIDER ESTABLISHED VISIT STL: [place] is a 84 year old WHITE MALE with past medical history of PMH: 1) Essential hypertension (SNOMED CT 63167657) 2) Allergies * (ICD-9-CM 995.3) 3) Osteoarthritis * (ICD-9-CM 715.90) comment: R knee and hip 4) Tobacco dependence syndrome (SNOMED CT 22678517) 5) Mixed hyperlipidemia (SNOMED CT 004525349) 6) Erectile dysfunction (SNOMED CT 248945310) 7) COR ATHEROSCL NATV C VSL 8) Postsurgical Aortocoronary Bypass Status (ICD-9-CM V45.81) 9) CONSTIPATION, unspecified (ICD-9-CM 564.00) 10) Coronary artery disease (SNOMED CT 21055659) comment: CABG in 2004 for 3-vessel disease (LAD 60%, LCfx 90%, RC100 11) Gynecomastia 12) Gynecomastia 13) Chronic kidney disease stage 3B 14) Essential hypertension 15) Renal osteodystrophy 16) Type 2 diabetes mellitus well controlled 17) Monoclonal gammopathy 18) Chronic kidney disease stage 3B 19) Cerebral infarction 20) Exposure to potentially hazardous substance History of present illness Legs hurt when walking currently hospitalized and unable to participate in phone call. Dtr was given opportunity to express her concerns regarding [place] situation. Dtr voices concerns about [place]'s ability to make medical decisions for himself and wonders when she may become active in making decisions on his behalf. Dtr shared a few experiences during [place]'s recent hospitalization where she witnessed being agreeable to everything providers would say, once with agreeing to morphine for a mild neck ache. 'I'm glad I was there to tell staff he just needs Tylenol, but there is no telling what else he is agreeing to'. Dtr also shared several instances when [place] responses during conversations did not track with topic. Dtr inquiring about how to have his memory tested. brillinta 90mg bid furosemide 40mg rosuvastatin 40mg daily omeprazole 20mg bid Needs dementia workup-consult was not working Outside labs? Diet Exercise Sleep Medication compliance nonva providers: DATA Review Measurement DT TEMP PULSE RESP BP HT WT F(C) IN(CM) LB(KG)[BMI] ---- ----- ---- -- ------ 05/03/2024 15:22 160/68 05/03/2024 14:51 158/66 Measurement DT CVP POx CG CMH20(MMHG) (L/MIN)(%) IN(CM) ------ 05/03/2024 14:44 97 11/01/2023 14:40 94 Measurement DT Pain ---- 05/03/2024 14:44 0 11/01/2023 14:40 0 32.6 LABS: CREATININE 1.95 H mg/dL 11/01/2023 15:47 EGFR (CKD-EPI 2020) 33.51 11/01/2023 15:47 HGB 14.7 g/dL 11/01/2023 15:47 HGA1C 7.3 H % 11/01/2023 15:47 TRIGLYCERIDE 157 H mg/dL 11/01/2023 15:47 CHOLESTEROL 187 mg/dL 11/01/2023 15:47 HDL(New) 34 L mg/dL 11/01/2023 15:47 CALCULATED LDL 122 mg/dL 11/01/2023 15:47 AKP: 63 (11/01/23 15:47) ALB: 3.9 (11/01/23 15:47) D.BILI: 0.1 (11/01/22 20:40) GOT/AST: 15 (11/01/23 15:47) GPT/ALT: 11 (11/01/23 15:47) T.Prot: 7.2 (11/01/23 15:47) TBIL: 0.5 (11/01/23 15:47) Medication reconciliation done General: pleasant, well appearing adult male in no apparent distress HEENT: speech fluent and clear, hearing grossly intact Neck: no carotid bruits Heart: regular rate and rhythm; no murmurs, rubs, or gallops Lungs: respirations regular and non-labored; CTA BL; no wheezes, rhonchi, or rales Abdomen: soft, nontender, nondistended, bowel sounds normal Extremities: warm, well-perfused; no clubbing, cyanosis, or edema Skin: no rashes or lesions noted; good turgor Neuro: A&O x 3, gait steady and normal-based Psych: appropriate mood and affect Assessment and plan # Hypertension -elevated blood pressure 158/66on lisinopril, chlorthalidone, amlodipine and has heart rate is in the 50s so unable to add a beta-marion he does have some swelling of the extremities. Denies chest pain or shortness of breath echocardiogram ordered pending-increased from the lactone to 50 mg blood test next week to check for potassium level. Recommended weight loss and movement #CVA with stent placement inleft carotid doing well- rt leg recidual weekness after walking long distances-continue aspirin Patient encouraged to follow-up with vascular surgery # Tobacco dependence-not willing to quit at this time # Diabetes mellitus type 2 -A1c -Microalbumin creatinine ratio of - controlled -management and rx per [facility] endo -eye exam due: -micral:ordered today -foot exam: -cont lifestyle management: diet, exercise, increase acitivity -cont trend labs #CKD Stage 3b- likely from DM-2/HTN, cardio renal creat trending egfr on most recent lab at in October, was 2.14 Jun 20 at [facility] from records seen in [facility] currently on lisinopril and spironolactone for cardiorenal protection, will continue will continue lasix for volume control counselled on measures to maintain kidney health to include avoiding nsaids and keeping bp and bs at goal. #chronic kidney disease, stage 3b (44-30) CMP ordered - no NSAIDs, nephrotoxins - renally dose all medications Reviewed notes from nephrology Microalbumin creatinine ratio ordered #Anemia - hgb 12.8 on most recent lab from [facility], not anemia #Acid-Base - bicarb 27; no indication for supplementation # Hypercholesterolemia lipid profile ordered-hypertriglyceridemia 157 LDL 122 # Obesity BMI 33 Metabolic syndrome - Shared medical decision making occurred during this visit with the . - Questions answered and [place] is agreeable with treatment plan. - All new medications discussed/reviewed with /caregiver including side effects/teratogenic side effects. Advised to keep all scheduled medical and follow-up appointments. was advised to seek medical treatment if symptoms do not improve and/or worsens. Time spent with patient 40 mins Follow-up visit HEALTH MAINTENANCE: CRC screen -No data available for: COLONOSCOPY CONSULT REPORT STL age 45 - 75 for average risk No PSA (LAST 10 5Y) EO data found ADMINISTERED Immunization Series Date Facility Reaction Info COVID-19 (Toptal), MRNA, LNP-S, * 2 02/17/2021 [facility]* <C> COVID-19 (PFIZER), MRNA, LNP-S, * 1 01/27/2021 [facility]* <C> INFLUENZA (HISTORICAL) 07/31/2004 [facility]* INFLUENZA (HISTORICAL) 05/10/2003 [facility] INFLUENZA, SPLIT VIRUS, QUADRIVA* 06/12/2019 [facility] INFLUENZA, SPLIT VIRUS, QUADRIVA* 08/01/2017 [facility] INFLUENZA, UNSPECIFIED FORMULATI* [facility] n * INFLUENZA, UNSPECIFIED FORMULATI* [facility] INFLUENZA, UNSPECIFIED FORMULATI* 04/04/2013 [facility] INFLUENZA, UNSPECIFIED FORMULATI* 04/06/2011 [facility] INFLUENZA, UNSPECIFIED FORMULATI* [facility] INFLUENZA, UNSPECIFIED FORMULATI* 07/31/2009 [facility] INFLUENZA, UNSPECIFIED FORMULATI* 05/06/2008 [facility] INFLUENZA, UNSPECIFIED FORMULATI* 06/02/2007 [facility] INFLUENZA, UNSPECIFIED FORMULATI* 05/27/2006 [facility] INFLUENZA, UNSPECIFIED FORMULATI* 05/28/2005 [facility] INFLUENZA, UNSPECIFIED FORMULATI* 07/31/2004 [facility] INFLUENZA, UNSPECIFIED FORMULATI* 05/10/2003 . [facility]* PNEUMOCOCCAL CONJUGATE PCV 13 08/21/2014 . [facility]* PNEUMOCOCCAL, UNSPECIFIED FORMUL* 01/29/2005 [facility] TDAP 07/04/2009 No Site [facility] LIVE 12/27/2008 [facility]* CONTRAINDICATED No data available REFUSED ======= Immunization Date Facility Info COVID-19 (MODERNA), MRNA, LNP-S,* 05/03/2024 [facility]* <I> COVID-19 (PFIZER), MRNA, LNP-S, * 11/01/2023 [facility]* <I> INFLUENZA, UNSPECIFIED FORMULATI* 05/03/2024 [facility]* <I> TD(ADULT) UNSPECIFIED FORMULATION 02/08/2023 [facility]* <I> ZOSTER RECOMBINANT 11/01/2023 [facility]* <I> ZOSTER RECOMBINANT 02/08/2023 [facility]* <I> <C> See the Detailed Immunizations Health Summary Component[DIM] for Comments <I> See the Detailed Immunizations Health Summary Component[DIM] for Additional Information * Value is truncated; see the Detailed Immunizations Health Summary Component[DIM] for complete text Annual (Male)-The patient was counseled regarding the appropriate use of alcohol, screening procedures and recommended schedule for colonoscopy, psa, cholesterol, thyroid and diabetes screening, prevention of dental and periodontal disease, diet, regular sustained exercise for at least 30 minutes 3- 4 times per week, prostate cancer screening, regular use of seat belts. Recommend dilated eye exam and glaucoma screening every 2 years or as indicated by ophthalmology Discussed and recommended Whole Health modalities include Coaching, Well-Being activities andclasses, Chiropractic, Full Body Acupuncture, Integrative Medicine,Holistic RN Care, Health Behavior Specialists, and Functional Nutrition RETURN TO CLINIC: Return to Clinic order placed SUMMARY STATEMENT: Plan of care has been discussed with including expected therapeutic benefits and potential side effects of prescribed medication and treatments. verbalizes understanding and is in agreement with the plan of care. Patient was instructed to keep all scheduled appointments and contact men's designer for any additional problems. /grady STEPHEN M.D. PRIMARY CARE PHYSICIAN Signed: 07/18/2024 16:29 08/04/2024 ADDENDUM STATUS: COMPLETED Received paperwork from [facility] for patient of patient receiving home health services from the [place]. Paper signed and given to RN DORITA /grady STEPHEN M.D. PRIMARY CARE PHYSICIAN Signed: 08/04/2024 17:19 Receipt Acknowledged By: * AWAITING SIGNATURE * BRITANY RAMIREZ SREE B [facility] Jul 17, 2024 10:42 AM PRIMARY CARE NOTE: LOCAL TITLE: PRIMARY CARE PROVIDER ESTABLISHED VISIT STL STANDARD TITLE: PRIMARY CARE NOTE DATE OF NOTE: JUL 17, 2024@10:42 ENTRY DATE: JUL 17, 2024@10:42:09 AUTHOR: CARMELLA STEPHEN EXP COSIGNER: URGENCY: STATUS: COMPLETED PRIMARY CARE PROVIDER ESTABLISHED VISIT STL Has ADDENDA [place] is a 84 year old WHITE MALE with past medical history of PMH: 1) Essential hypertension (SNOMED CT 64348818) 2) Allergies * (ICD-9-CM 995.3) 3) Osteoarthritis * (ICD-9-CM 715.90) comment: R knee and hip 4) Tobacco dependence syndrome (SNOMED CT 37065631) 5) Mixed hyperlipidemia (SNOMED CT 573256588) 6) Erectile dysfunction (SNOMED CT 577122786) 7) COR ATHEROSCL NATV C VSL 8) Postsurgical Aortocoronary Bypass Status (ICD-9-CM V45.81) 9) CONSTIPATION, unspecified (ICD-9-CM 564.00) 10) Coronary artery disease (SNOMED CT 40766894) comment: CABG in 2004 for 3-vessel disease (LAD 60%, LCfx 90%, RC100 11) Gynecomastia 12) Gynecomastia 13) Chronic kidney disease stage 3B 14) Essential hypertension 15) Renal osteodystrophy 16) Type 2 diabetes mellitus well controlled 17) Monoclonal gammopathy 18) Chronic kidney disease stage 3B 19) Cerebral infarction 20) Exposure to potentially hazardous substance History of present illness Legs hurt when walking currently hospitalized and unable to participate in phone call. Dtr was given opportunity to express her concerns regarding [place] situation. Dtr voices concerns about 's ability to make medical decisions for himself and wonders when she may become active in making decisions on his behalf. Dtr shared a few experiences during 's recent hospitalization where she witnessed [place] being agreeable to everything providers would say, once with agreeing to morphine for a mild neck ache. 'I'm glad I was there to tell staff he just needs Tylenol, but there is no telling what else he is agreeing to'. Dtr also shared several instances when responses during conversations did not track with topic. Dtr inquiring about how to have his memory tested. brillinta 90mg bid furosemide 40mg rosuvastatin 40mg daily omeprazole 20mg bid Needs dementia workup-consult was not working Outside labs? Diet Exercise Sleep Medication compliance nonva providers: DATA Review Measurement DT TEMP PULSE RESP BP HT WT F(C) IN(CM) LB(KG)[BMI] ---- ----- ---- -- ------ 05/03/2024 15:22 160/68 05/03/2024 14:51 158/66 Measurement DT CVP POx CG CMH20(MMHG) (L/MIN)(%) IN(CM) ------ 05/03/2024 14:44 97 11/01/2023 14:40 94 Measurement DT Pain ---- 05/03/2024 14:44 0 11/01/2023 14:40 0 32.6 LABS: CREATININE 1.95 H mg/dL 11/01/2023 15:47 EGFR (CKD-EPI 2020) 33.51 11/01/2023 15:47 HGB 14.7 g/dL 11/01/2023 15:47 HGA1C 7.3 H % 11/01/2023 15:47 TRIGLYCERIDE 157 H mg/dL 11/01/2023 15:47 CHOLESTEROL 187 mg/dL 11/01/2023 15:47 HDL(New) 34 L mg/dL 11/01/2023 15:47 CALCULATED LDL 122 mg/dL 11/01/2023 15:47 AKP: 63 (11/01/23 15:47) ALB: 3.9 (11/01/23 15:47) D.BILI: 0.1 (11/01/22 20:40) GOT/AST: 15 (11/01/23 15:47) GPT/ALT: 11 (04/30/24 15:47) T.Prot: 7.2 (11/01/23 15:47) TBIL: 0.5 (11/01/23 15:47) Medication reconciliation done General: pleasant, well appearing adult male in no apparent distress HEENT: speech fluent and clear, hearing grossly intact Neck: no carotid bruits Heart: regular rate and rhythm; no murmurs, rubs, or gallops Lungs: respirations regular and non-labored; CTA BL; no wheezes, rhonchi, or rales Abdomen: soft, nontender, nondistended, bowel sounds normal Extremities: warm, well-perfused; no clubbing, cyanosis, or edema Skin: no rashes or lesions noted; good turgor Neuro: A&O x 3, gait steady and normal-based Psych: appropriate mood and affect Assessment and plan # Hypertension -elevated blood pressure 158/66on lisinopril, chlorthalidone, amlodipine and has heart rate is in the 50s so unable to add a beta-marion he does have some swelling of the extremities. Denies chest pain or shortness of breath echocardiogram ordered pending-increased from the lactone to 50 mg blood test next week to check for potassium level. Recommended weight loss and movement #CVA with stent placement inleft carotid doing well- rt leg recidual weekness after walking long distances-continue aspirin Patient encouraged to follow-up with vascular surgery # Tobacco dependence-not willing to quit at this time # Diabetes mellitus type 2 -A1c -Microalbumin creatinine ratio of - controlled -management and rx per non-[facility] endo -eye exam due: -micral:ordered today -foot exam: -cont lifestyle management: diet, exercise, increase acitivity -cont trend labs #CKD Stage 3b- likely from DM-2/HTN, cardio renal creat trending egfr on most recent lab at in October, was 2.14 Jun 20 at [facility] from records seen in [facility] currently on lisinopril and spironolactone for cardiorenal protection, will continue will continue lasix for volume control counselled on measures to maintain kidney health to include avoiding nsaids and keeping bp and bs at goal. #chronic kidney disease, stage 3b (44-30) CMP ordered - no NSAIDs, nephrotoxins - renally dose all medications Reviewed notes from nephrology Microalbumin creatinine ratio ordered #Anemia - hgb 12.8 on most recent lab from [facility], not anemia #Acid-Base - bicarb 27; no indication for supplementation # Hypercholesterolemia lipid profile ordered-hypertriglyceridemia 157 LDL 122 # Obesity BMI 33 Metabolic syndrome - Shared medical decision making occurred during this visit with the . - Questions answered and is agreeable with treatment plan. - All new medications discussed/reviewed with /caregiver including side effects/teratogenic side effects. Advised to keep all scheduled medical and follow-up appointments. [place] was advised to seek medical treatment if symptoms do not improve and/or worsens. Time spent with patient 40 mins Follow-up visit HEALTH MAINTENANCE: CRC screen -No data available for: COLONOSCOPY CONSULT REPORT STL age 45 - 75 for average risk No PSA (LAST 10 5Y) EO data found ADMINISTERED Immunization Series Date Facility Reaction Info COVID-19 (Toptal), MRNA, LNP-S, * 2 02/17/2021 [facility]* <C> COVID-19 (PFIZER), MRNA, LNP-S, * 1 01/27/2021 [facility]* <C> INFLUENZA (HISTORICAL) 07/31/2004 . [facility]* INFLUENZA (HISTORICAL) 05/10/2003 [facility]* INFLUENZA, SPLIT VIRUS, QUADRIVA* 06/12/2019 . [facility]* INFLUENZA, SPLIT VIRUS, QUADRIVA* 08/01/2017 [facility] INFLUENZA, UNSPECIFIED FORMULATI* Shop n * INFLUENZA, UNSPECIFIED FORMULATI* [facility] INFLUENZA, UNSPECIFIED FORMULATI* [...] [facility] PNEUMOCOCCAL CONJUGATE PCV 13 08/21/2014 [facility]* PNEUMOCOCCAL, UNSPECIFIED FORMUL* 01/29/2005 [facility]* TDAP 07/04/2009 No Site [facility] LIVE 12/27/2008 [facility]* CONTRAINDICATED No data available REFUSED ======= Immunization Date Facility Info COVID-19 (MODERNA), MRNA, LNP-S,* 05/03/2024 [facility]* <I> COVID-19 (PFIZER), MRNA, LNP-S, * 11/01/2023 [facility]* <I> INFLUENZA, UNSPECIFIED FORMULATI* 05/03/2024 [facility]* <I> TD(ADULT) UNSPECIFIED FORMULATION 02/08/2023 [facility]* <I> ZOSTER RECOMBINANT 11/01/2023 [facility]* <I> ZOSTER RECOMBINANT 02/08/2023 [facility]* <I> <C> See the Detailed Immunizations Health Summary Component[DIM] for Comments <I> See the Detailed Immunizations Health Summary Component[DIM] for Additional Information * Value is truncated; see the Detailed Immunizations Health Summary Component[DIM] for complete text Annual (Male)-The patient was counseled regarding the appropriate use of alcohol, screening procedures and recommended schedule for colonoscopy, psa, cholesterol, thyroid and diabetes screening, prevention of dental and periodontal disease, diet, regular sustained exercise for at least 30 minutes 3- 4 times per week, prostate cancer screening, regular use of seat belts. Recommend dilated eye exam and glaucoma screening every 2 years or as indicated by ophthalmology Discussed and recommended Whole Health modalities include Coaching, Well-Being activities andclasses, Chiropractic, Full Body Acupuncture, Integrative Medicine,Holistic RN Care, Health Behavior Specialists, and Functional Nutrition RETURN TO CLINIC: Return to Clinic order placed SUMMARY STATEMENT: Plan of care has been discussed with including expected therapeutic benefits and potential side effects of prescribed medication and treatments. [place] verbalizes understanding and is in agreement with the plan of care. Patient was instructed to keep all scheduled appointments and contact men's designer for any additional problems. /michael/ CARMELLA STEPHEN M.D. PRIMARY CARE PHYSICIAN Signed: 07/18/2024 16:29 08/04/2024 ADDENDUM STATUS: COMPLETED Received basal metabolic panel results from [facility] dated July 25, 2024 Sodium 135 low Potassium 3.9 Glucose 197 BUN 42 Creatinine 3.36 eGFR 18 Patient [place] seeing neph[place] in the [place]. will alert kathryn /grady STEPHEN M.D. PRIMARY CARE PHYSICIAN Signed: 08/04/2024 17:14 Receipt Acknowledged By: * AWAITING SIGNATURE * SUPRIYA MOLINA 08/04/2024 ADDENDUM STATUS: COMPLETED Received paperwork from [facility] for patient of patient receiving home health services from the [place]. Paper signed and given to RN DORITA /grady STEPHEN M.D. PRIMARY CARE PHYSICIAN Signed: 08/04/2024 17:19 Receipt Acknowledged By: * AWAITING SIGNATURE * BRITANY RAMIREZ SREE B [facility] Jul 17, 2024 10:37 AM NURSING NOTE: LOCAL TITLE: V15 PACT FACE TO FACE NOTE STL STANDARD TITLE: NURSING NOTE DATE OF NOTE: JUL 17, 2024@10:37 ENTRY DATE: JUL 17, 2024@10:37:17 AUTHOR: CYNDEE HERNANDEZ EXP COSIGNER: URGENCY: STATUS: COMPLETED Provider Visit: Patient Identifiers : Full Name Date of Reason for visit: Established Follow-Up Mode of Arrival: Ambulatory Allergy Review: Patient has answered NKA Allergy list reviewed and remains current. Recent Vital Signs: Temperature: 97.4 F [36.3 C] (07/17/2024 10:32) Pulse: 20 (07/17/2024 10:32) Respiration: 14 (07/17/2024 10:32) B/P: 124/61 (07/17/2024 10:32) Pain: 0 (07/17/2024 10:32) Wt: 213 lb [96.62 kg] (07/17/2024 10:32) Ht: 70 in [177.8 cm] (02/08/2023 13:50) BMI: 30.6 POX: 97% (07/17/2024 10:32) Would you like to discuss any personal problem, family problem, alcohol use, drug use, or a mental or emotional illness? No Contact provided Primary Care phone number and encouraged to call if any questions or concerns. Review that after hours nurse line [phone] and emergency room are available 24/01 for patient use. Contact verbalized good understanding. Td / Tdap Immunization - L,N,P,PH,U: The patient declines to receive the recommended dose of Td/Tdap vaccine. Immunization: TD(ADULT) UNSPECIFIED FORMULATION Refusal Reason: PATIENT DECISION Patient refuses all immunization(s) in the Td group Date Documented: 07/17/24 10:38 Herpes Zoster (Shingles) Vaccine - L,N,P,PH,U: The patient declines to receive the recommended dose of zoster (shingles) vaccine. Immunization: ZOSTER RECOMBINANT Refusal Reason: PATIENT DECISION Patient refuses all immunization(s) in the ZOSTER group Date Documented: 07/17/24 10:38 Influenza Immunization - L,N,P,PH,U: Deferral / Refusal The patient declines to receive the recommended dose of seasonal influenza vaccine. Immunization: INFLUENZA, UNSPECIFIED FORMULATION Refusal Reason: PATIENT DECISION Patient refuses all immunization(s) in the FLU group Date Documented: 07/17/24 10:38 /michael/ CYNDEE HERNANDEZ LPN LICENSED PRACTICAL NURSE Signed: 07/17/2024 10:38 CYNDEE HERNANDEZ [facility]
--- OUTSIDE RECORDS SUMMARY | 2024-08-28 18:22 | XMS_ITS | Encounter Summary ---
Author Name [facility] [place] [facility] [place] Address [address] [place] [address] Care Team Providers Care Bowling Alley Floors Installer Name Role Phone CARMELLA STEPHEN Primary Care Provider Armando e Insurance Providers: All historical and current Section [...] PART A Dec 02, 2004 PART A [id number] GODWINREKHA Jammie PATIENT MEDICARE (WNR) MEDICARE (M) PART B Dec 02, 2004 PART B [id number] GODWINREKHA Jammie PATIENT MEDICARE (WNR) MEDICARE (M) PART A Dec 02, 2004 PART A [id number] GODWINREKHA Jammie PATIENT MEDICARE (WNR) MEDICARE (M) PART B Dec 02, 2004 PART B [id number] [phone] REKHA TRINH PATIENT Selected Encounter This section includes the information on record at [place] for the Encounter. Date/Time Encounter Type Encounter Description Reason Pro vider Source Aug 27, 2024 03:10 PM Outpatient Encounter VASCULAR SURGERY IHE Encounter Template Text not used by [place] Plan of Treatment: Future Appointments (+ 6 months) and Future Tests (+/- 45 days) The Plan of Treatment section includes future care activities for the patient [facility] [place] [facility] This section includes future appointments and future orders which are active, pending or scheduled. Future Appointments This section includes appointments that were scheduled to occur 6 months from the date of the Encounter, up to a maximum of 20 appointments. The data comes from all [facility]. Appointment Date/Time Appointment Type Appointme nt Facility Name Sep 24, 2024 02:00 PM AMBULATORY - MEDICINE [facility] November 01, 2024 03:00 PM AMBULATORY MEDICINE [facility] Dec 28, 2024 02:00 PM AM[facility]INE [facility] Jan 16, 2025 02:00 PM AMBULATORY - MEDICINE [facility] Jan 17, 2025 02:30 PM AMBULATORY - MEDICINE [facility] Active, Pending, and Scheduled Orders This section includes a listing of several types of active, pending, and scheduled orders, including clinic medications orders, diagnostic test orders, procedure orders and consult orders; where the start date of the order is 45 days before the date of the Encounter or 45 days after the date of theEncounter. The data comes from all [facility]. Test Date/Time Test Type Test Details Facility Name Jul 18, 2024 10:57 AM Procedure Order CP EKG STL CP EKG - STL Proc General Practice's Choice [facility] Aug 24, 2024 06:19 PM Consult Order VASCULAR S URG I CLAUDICATING/NON-HEALING ULCER OUTPT STL Cons General Practices [facility] Lab Results: +/- 30 days of the encounter This section includes the Chemistry and Hematology Lab Results on record with [place] for the patient. Radiology Reports and Pathology Reports are provided separately, in subsequent sections. Lab Results This section contains the Chemistry/Hematology Results that were resulted 30 days before or 30 daysafter the date of the Encounter. Date/Time Source Result Type Result - Unit Interpretation Reference Range Comment Aug 24, 2024 03:20 PM [facility] HGA1C Specimen Type: BLOOD No comment entered. Ordering Provider: SHAHRZAD MCLAIN Report Released Date/Time: Aug 24, 2024 02:51 PM Reporting Lab: [facility] [facility] [address] Performing Lab: [facility] [facility] [address] HGA1C 8.4 H 4.0-6.0 Aug 24, 2024 03:20 PM [facility] BASIC METABOLIC PANEL Specimen Type: PLASMA Comment: No hemolysis noted. Ordering Provider: SHAHRZAD MCLAIN Report Released Date/Time: Aug 24, 2024 02:51 PM Reporting Lab: [facility] [facility] [address] Performing Lab: [facility] [facility] [address] CREATININE 2.55 mg/dL H 0.70-1.30 UREA NITROGEN 45.1 mg/dL H 9.0-25.0 GLUCOSE 274 mg/dL H 72-99 SODIUM 140 meq/L 136-145 POTASSIUM 4.4 meq/L 3.5-5.0 CHLORIDE 100 meq/L 98-107 CARBON DIOXIDE 27 meq/L 22-31 CALCIUM 10.1 mg/dL 8.4-10.4 EGFR (CKD-EPI 2020) 24.13 >60 Social History: Smoking Status (Most current) and Tobacco Use (All prior to encounter date) This section includes the most current, and the historical, smoking and tobacco- related health factors from the [place] facility where the Encounter took place. Current Smoking Status This section includes the most current smoking, or tobacco-related health factor, from the [place] facility where the Encounter took place. Date/Time Current Smoking Status Comment Octavio enamorado May 01, 2024 03:41 PM VA-TOBACCO USER EVERY DAY [facility] Tobacco Use History This section includes a history of the smoking, or tobacco-related health factors, that were collected on or before the date of the Encounter. The data comes from the [place] facility where the Encounter took place. 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 [facility] Jul 29, 2020 01:06 PM VA-TOBACCO USE MED NO [facility] Jul 29, 2020 01:06 PM VA-TOBACCO USE WI 30 MIN OF WAKEUP [facility] Jul 29, 2020 01:06 PM VA-TOBACCO USER EVERY DAY [facility] Jan 06, 2006 10:38 AM CURRENT TOBACCO USER [facility] Jan 06, 2006 10:38 AM SMOKER 10-20 [facility] Jan 06, 2006 10:38 AM TOBACCO CONTEMPLATION STAGE [facility] May 10, 2003 08:36 AM CURRENT TOBACCO USER [facility] May 10, 2003 08:36 AM TOBACCO USE [facility] Dec 14, 2002 07:49 AM CURRENT TOBACCO USER [facility] Dec 14, 2002 07:49 AM TOBACCO USE [facility] Advance Directives: All historical and current Section Date Range: From patient's date of to the date document was created. This section includes ALL of a patient's completed or amended VA Advance and Rescinded Directives. The entries below indicate that a directive exists for the patient, but an actual copy is not included with this document. The data comes from all [place] facilities. Date Advance Directives Provider Source Sep 17, 2021 ADVANCE DIRECTIVE SHUBHAM JAMISON IS [facility] Oct 20, 2004 ADVANCE DIRECTIVE SAHIL WOLFE S [facility] Encounter Notes: All associated encounter notes This section contains the clinical notes associated to the Encounter. Date/Time Encounter Note(s) Provider Source Aug 27, 2024 03:10 PM PHYSICIAN LETTERS: LOCAL TITLE: NO CONTACT LETTER STL STANDARD TITLE: PHYSICIAN LETTERS DATE OF NOTE: AUG 27, 2024@15:10 ENTRY DATE: AUG 27, 2024@15:10:27 AUTHOR: REYNA FISHER EXP COSIGNER: URGENCY: STATUS: COMPLETED [facility] [address] [place] [address] Aug 27, 2024 Yoana Trinh [address] [place], [place] [address] Dear Yoana Trinh, Thank you for choosing the [facility] as your primary choice for health care. As a partner in your health care, we are attempting to contact you because we have been unsuccessful in reaching you by phone. We want to assure you that we are doing everything possible to schedule Veterans for their appointments. Please call us at [phone], ext. [phone] to speak to us regarding making an appointment in the VASCULAR SURGERY I clinic. Your good health is important to us. Thank you for your service, and we look forward to hearing from you soon. Sincerely yours, Sincerely, REYNA FISHER ADVANCED STEAM HEATING INSTALLER YOANA TRINH [facility]
--- OUTSIDE RECORDS SUMMARY | 2024-08-28 18:22 | XMS_ITS | Encounter Summary ---
Author Name [facility] [place] [facility] [place] Address [address] [place] [address] Care Team Providers Care Sorter Upholstery Parts Name Role Phone PITERCARMELLA Shultz Primary Care Provider Armando e Insurance Providers: [...] Policy Kessler's Name Patient's Relationship to Policy Ksesler MEDICARE (WNR) MEDICARE (M) PART A Dec 02, 2004 PART A [id number] [phone] GODWINREKHA Jammie PATIENT MEDICARE (WNR) MEDICARE (M) PART B Dec 02, 2004 PART B [id number] [phone] GODWINJENNIFERRobert Agudelo PATIENT MEDICARE (WNR) MEDICARE (M) PART A Dec 02, 2004 PART A [id number] GODWINREKHA Jammie PATIENT MEDICARE (WNR) MEDICARE (M) PART B Dec 02, 2004 PART B [id number] REKHA CONNELLY PATIENT Selected Encounter This section includes the information on record at [place] for the Encounter. Date/Time Encounter Type Encounter Description Reason Pro vider Source Jul 05, 2024 07:52 AM Outpatient Encounter ADMIN PAT ACTIVTIES (MASNONCT) IHE Encounter Template Text not used by [place] Plan of Treatment: Future Appointments (+ 6 months) and Future Tests (+/- 45 days) The Plan of Treatment section includes future care activities for the patient [facility] [place] [facility] This section includes future appointments and future orders which are active, pending or scheduled. Future Appointments This section includes appointments that were scheduled to occur 6 months from the date of the Encounter, up to a maximum of 20 appointments. The data comes from all [facility]. Appointment Date/Time Appointment Type Appointme nt Facility Name Jul 07, 2024 08:00 AM AMBULATORY - NONE [facility] Jul 09, 2024 01:00 PM AMBULATORY - MEDICINE [facility] Jul 17, 2024 11:00 AM AMBULATORY - MEDICINE [facility] Jul 18, 2024 11:00 AM AMBULATORY - MEDICINE [facility] Jul 20, 2024 12:30 PM AMBULATORY - MEDICINE [facility] Aug 22, 2024 11:00 AM AMBULATORY - MEDICINE [facility] Aug 24, 2024 02:00 PM AMBULATORY - MEDICINE [facility] Sep 24, 2024 02:00 PM AMBULATORY - MEDICINE [facility] November 01, 2024 03:00 PM AMBULATORY - MEDICINE [facility] Dec 28, 2024 02:00 PM AMBULATORY - MEDICINE [facility] Active, Pending, and Scheduled Orders This section includes a listing of several types of active, pending, and scheduled orders, including clinic medications orders, diagnostic test orders, procedure orders and consult orders; where the start date of the order is 45 days before the date of the Encounter or 45 days after the date of theEncounter. The data comes from all [facility]. Test Date/Time Test Type Test Details Facility Name Jul 03, 2024 03:14 PM Consult Order [facility] STL Cons [facility] Jul 09, 2024 12:00 AM Laboratory - Chemi stry Order PROTEIN URINE URINE YELLOW SP [facility] Jul 09, 2024 12:00 AM Laboratory - Chemi stry Order MICRAL/CREAT PROFILE (STL) URINE YELLOW SP [facility] Jul 18, 2024 10:57 AM Procedure Order CP EKG STL CP EKG - STL Proc [facility] Lab Results: +/- 30 days of the encounter This section includes the Chemistry and Hematology Lab Results on record with [place] for the patient. Radiology Reports and Pathology Reports are provided separately, in subsequent sections. Lab Results This section contains the Chemistry/Hematology Results that were resulted 30 days before or 30 daysafter the date of the Encounter. Date/Time Source Result Type Result - Unit Interpretation Reference Range Comment Jul 20, 2024 01:17 PM [facility] VITAMIN D, 25-HYDROXY Specimen Type: SERUM No comment entered. Ordering Provider: Pricila MOLINA Report Released Date/Time: Jul 09, 2024 02:40 PM Reporting Lab: [address] [address] Performing Lab: [address] [address] VITAMIN D, 25-HYDROXY 37.1 ng/mL 30-96 Jul 20, 2024 01:17 PM [facility] PTH, INTACT (STL) Specimen Type: SERUM No comment entered. Ordering Provider: Pricila MOLINA Report Released Date/Time: Jul 09, 2024 02:40 PM Reporting Lab: [address] [address] Performing Lab: [address] [address] PTH, INTACT (STL) 89.50 pg/mL H 8.7-77.7 Jul 20, 2024 01:17 PM [facility] RENAL PANEL Specimen Type: PLASMA Comment: No hemolysis noted. Ordering Provider: Pricila MOLINA Report Released Date/Time: Jul 09, 2024 02:40 PM Reporting Lab: [address] [address] Performing Lab: [address] [address] CREATININE 3.88 mg/dL H 0.7-1.3 UREA NITROGEN 53.0 mg/dL H 9.0-25.0 GLUCOSE 220 mg/dL H 72-99 SODIUM 136 meq/L 136-145 POTASSIUM 4.3 meq/L 3.5-5 CHLORIDE 98 meq/L 98-107 CARBON DIOXIDE 27 meq/L 22-31 CALCIUM 9.8 mg/dL 8.4-10.4 PHOSPHOROUS 3.3 mg/dL 2.3-4.7 ALBUMIN 3.7 g/dL 3.4-5 EGFR (CKD-EPI 2020) 14.6 LL >60 Jul 20, 2024 01:17 PM [facility] CBC Specimen Type: BLOOD No comment entered. Ordering Provider: Pricila MOLINA Report Released Date/Time: Jul 09, 2024 02:40 PM Reporting Lab: [address] [address] Performing Lab: [address] [address] WBC 8.4 10*3/uL 3.6-11.2 RBC 3.84 10*6/uL [...] 10*3/uL 0.00-0.20 Jul 20, 2024 01:16 PM [facility] FERRITIN Specimen Type: SERUM No comment entered. Ordering Provider: Pricila MOLINA Report Released Date/Time: Jul 20, 2024 12:55 PM Reporting Lab: [facility] [address] [place] [address] Performing Lab: [address] [address] FERRITIN 400.00 ng/mL H 22-275 Jul 20, 2024 01:16 PM [facility] MAGNESIUM Specimen Type: PLASMA No comment entered. Ordering Provider: Pricila MOLINA Report Released Date/Time: Jul 20, 2024 12:56 PM Reporting Lab: [address] [address] Performing Lab: [address] [address] MAGNESIUM 1.9 mg/dL 1.6-2.6 Jul 20, 2024 01:16 PM [facility] IRON/TIBC PROFILE Specimen Type: SERUM No comment entered. Ordering Provider: Pricila MOLINA Report Released Date/Time: Jul 20, 2024 12:55 PM Reporting Lab: [address] [address] Performing Lab: [address] [address] TIBC 308 ug/dL 250-450 TRANSFERRIN 246 mg/dL 163-344 IRON SATURATION 55 H 20-50 IRON 169 ug/dL 65-175 Social History: Smoking Status (Most current) and Tobacco Use (All prior to encounter date) This section includes the most current, and the historical, smoking and tobacco- related health factors from the [place] facility where the Encounter took place. Current Smoking Status This section includes the most current smoking, or tobacco-related health factor, from the [place] facility where the Encounter took place. Date/Time Current Smoking Status Comment Octavio ity May 01, 2024 03:41 PM VA-TOBACCO USER EVERY DAY [facility] Tobacco Use History This section includes a history of the smoking, or tobacco-related health factors, that were collected on or before the date of the Encounter. The data comes from the [place] facility where the Encounter took place. 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 [facility] May 01, 2024 03:41 PM VA-TOBACCO USE MED NO [facility] May 01, 2024 03:41 PM VA-TOBACCO USE WI 30 MIN OF WAKEUP [facility] May 01, 2024 03:41 PM VA-TOBACCO USER EVERY DAY [facility] Jul 29, 2020 01:06 PM VA-TOBACCO USE 30 YEARS OR MORE [facility] Jul 29, 2020 01:06 PM VA-TOBACCO USE ADVICE [facility] Jul 29, 2020 01:06 PM 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 [facility] Jul 29, 2020 01:06 PM VA-TOBACCO USE MED NO [facility] Jul 29, 2020 01:06 PM VA-TOBACCO USE WI 30 MIN OF WAKEUP [facility] Jul 29, 2020 01:06 PM VA-TOBACCO USER EVERY DAY [facility] Jan 06, 2006 10:38 AM CURRENT TOBACCO USER [facility] Jan 06, 2006 10:38 AM SMOKER 10-20 [facility] Jan 06, 2006 10:38 AM TOBACCO CONTEMPLATION STAGE [facility] May 10, 2003 08:36 AM CURRENT TOBACCO USER [facility] May 10, 2003 08:36 AM TOBACCO USE [facility] Dec 14, 2002 07:49 AM CURRENT TOBACCO USER [facility] Dec 14, 2002 07:[address] Advance Directives: All historical and current Section Date Range: From patient's date of to the date document was created. This section includes ALL of a patient's completed or amended [place] Advance and Rescinded Directives. The entries below indicate that a directive exists for the patient, but an actual copy is not included with this document. The data comes from all [place] facilities. Date Advance Directives Provider Source Sep 17, [address] [facility] Oct 20, 2004 ADVANCE DIRECTIVE SAHIL WOLFE Pricila [facility] Encounter Notes: All associated encounter notes This section contains the clinical notes associated to the Encounter. Date/Time Encounter Note(s) Provider Source Jul 05, 2024 07:52 AM REFERRAL NOTE: LOCAL TITLE: REFERRAL COORDINATION TEAM CLINICAL NOTE STL STANDARD TITLE: REFERRAL NOTE DATE OF NOTE: JUL 05, 2024@07:52 ENTRY DATE: JUL 05, 2024@07:52:27 AUTHOR: MÓNICA OCHOA EXP COSIGNER: URGENCY: STATUS: COMPLETED REFERRAL COORDINATION TEAM CLINICAL NOTE STL Has ADDENDA REFERRAL COORDINATION TEAM CLINICAL NOTE STL Attached to this note are scanned copies of outside medical record(s). Providers, please BE ADVISED--There may be UNCONFIRMED Notes or Reports provided solely for continuity of care for internal consult purposes only. Patient Name YOANA CONNELLY Last 6, [phone] Specialty: Cardiology DOS: 2023 From: [facility] To view the scanned document: 1) You must be logged into [employer] 2) Click on Toolbar 3) Sign on to Mehdi Quesada /michael/ MÓNICA OCHOA MSN, BSN, CCRN Signed: 07/05/2024 07:53 07/05/2024 ADDENDUM STATUS: COMPLETED June 18, 2024 Severe 99% ostial stenosis of the radial graft of the diagonal LAD with SHANNAN I flow S/p percutaneous coronary intervention with placement of 2.5 into 18 mm Nacho frontier eluding stent, postdilated with a 3.0 and 3.25 mm NC Emerge balloons. #2 severe 95% stenosis of mild LAD s/p percutaneous coronary intervention with placement of 2.5 into 22 mm Nacho frontier drug-eluting stent. #3 widely patent FRANCIS graft to the midportion of the second obtuse marginal vessel that provides left to right collaterals to the distal right PDA. #4 severe [place] coronary artery disease as stated above. 100% occlusion of the proximal right coronary artery with right to right bridging collaterals to the distal right coronary artery. #5 elevated LVEDP at 25 mmHg /es/ MÓNICA OCHOA MSN, BSN, CCRN Signed: 07/05/2024 08:41 MÓNICA OCHOA [facility]
--- OUTSIDE RECORDS SUMMARY | 2024-08-28 18:22 | XMS_ITS | Encounter Summary ---
Author Name [facility] [place] Organization [facility] [place] Address [address] [place] [address] Care Team Providers Care Business Agent Name Role Phone CARMELLA STEPHEN Primary Care [...] PART A Dec 02, 2004 PART A [id number] [phone] GODWINJENNIFERRobert Agudelo PATIENT MEDICARE (WNR) MEDICARE (M) PART B Dec 02, 2004 PART B [id number] GODWINJENNIFERRobert Agudelo PATIENT MEDICARE (WNR) MEDICARE (M) PART B Dec 02, 2004 PART B [id number] [phone] GODWINJENNIFERRobert Agudelo PATIENT MEDICARE (WNR) MEDICARE (M) PART A Dec 02, 2004 PART A [id number] [phone] REKHA CONNELLY PATIENT Selected Encounter This section includes the information on record at [place] for the Encounter. Date/Time Encounter Type Encounter Description Reason Provider Source Jun 20, 2024 11:05 AM Outpatient Encounter GENERAL INTERNAL MEDICINE MELECIO SU Encounter Template Text not used by [place] Plan of Treatment: Future Appointments (+ 6 months) and Future Tests (+/- 45 days) The Plan of Treatment section includes future care activities for the patient from all [place] [facility] This section includes future appointments and future orders which are active, pending or scheduled. Future Appointments This section includes appointments that were scheduled to occur 6 months from the date of the Encounter, up to a maximum of 20 appointments. The data comes from all [facility]. Appointment Date/Time Appointment Type Appointme nt Facility Name Jul 03, 2024 11:00 AM AMBULATORY - MEDICINE [facility] Jul 07, 2024 08:00 AM AMBULATORY - NONE [facility] Jul 09, 2024 01:00 PM AMBULATORY - MEDICINE [facility] Jul 17, 2024 11:00 AM AMBULATORY - MEDICINE [facility] Jul 18, 2024 11:00 AM AMBULATORY - MEDICINE [facility] Jul 20, 2024 12:30 PM AMBULATORY - MEDICINE [facility] Aug 22, 2024 11:00 AM AMBULATORY - MEDICINE [facility] Aug 24, 2024 02:00 PM AMBULATORY - MEDICINE [facility] Sep 24, 2024 02:00 PM AMBULATORY - MEDICINE [facility] November 01, 2024 03:00 PM AMBULATORY - MEDICINE [facility] Active, Pending, and Scheduled Orders This section includes a listing of several types of active, pending, and scheduled orders, including clinic medications orders, diagnostic test orders, procedure orders and consult orders; where the start date of the order is 45 days before the date of the Encounter or 45 days after the date of theEncounter. The data comes from all [facility]. Test Date/Time Test Type Test Details Facility Name Jul 03, 2024 03:14 PM Consult Order [facility] ST[facility] Cons [facility] Jul 09, 2024 12:00 AM Laboratory - Chemi stry Order PROTEIN URINE URINE YELLOW SP [facility] Jul 09, 2024 12:00 AM Laboratory - Chemi stry Order MICRAL/CREAT PROFILE (STL) URINE YELLOW SP [facility] Jul 18, 2024 10:57 AM Procedure Order CP EKG STL CP EKG - STL Proc [facility] Lab Results: +/- 30 days of the encounter This section includes the Chemistry and Hematology Lab Results on record with [place] for the patient. Radiology Reports and Pathology Reports are provided separately, in subsequent sections. Lab Results This section contains the Chemistry/Hematology Results that were resulted 30 days before or 30 daysafter the date of the Encounter. Date/Time Source Result Type Result - Unit Interpretation Reference Range Comment Jul 20, 2024 01:17 PM [facility] VITAMIN D, 25-HYDROXY Specimen Type: SERUM No comment entered. Ordering Provider: Pricila MOLINA Report Released Date/Time: Jul 09, 2024 02:40 PM Reporting Lab: [address] [address] Performing Lab: [address] [address] VITAMIN D, 25-HYDROXY 37.1 ng/mL 30-96 Jul 20, 2024 01:17 PM [facility] PTH, INTACT (STL) Specimen Type: SERUM No comment entered. Ordering Provider: Pricila MOLINA Report Released Date/Time: Jul 09, 2024 02:40 PM Reporting Lab: [address] [address] Performing Lab: [address] [address] PTH, INTACT (STL) 89.50 pg/mL H 8.7-77.7 Jul 20, 2024 01:17 PM [facility] RENAL PANEL Specimen Type: PLASMA Comment: No hemolysis noted. Ordering Provider: Pricila MOLINA Report Released Date/Time: Jul 09, 2024 02:40 PM Reporting Lab: [address] [address] Performing Lab: [address] [address] CREATININE 3.88 mg/dL H 0.7-1.3 UREA NITROGEN 53.0 mg/dL H 9.0-25.0 GLUCOSE 220 mg/dL H 72-99 SODIUM 136 meq/L 136-145 POTASSIUM 4.3 meq/L 3.5-5 CHLORIDE 98 meq/L 98-107 CARBON DIOXIDE 27 meq/L 22-31 CALCIUM 9.8 mg/dL 8.4-10.4 PHOSPHOROUS 3.3 mg/dL 2.3-4.7 ALBUMIN 3.7 g/dL 3.4-5 EGFR (CKD-EPI 2020) 14.6 LL >60 Jul 20, 2024 01:17 PM [facility] CBC Specimen Type: BLOOD No comment entered. Ordering Provider: Pricila MOLINA Report Released Date/Time: Jul 09, 2024 02:40 PM Reporting Lab: [address] [address] Performing Lab: [address] [address] WBC 8.4 10*3/uL 3.6-11.2 RBC 3.84 10*6/uL [...] 10*3/uL 0.00-0.20 Jul 20, 2024 01:16 PM [facility] FERRITIN Specimen Type: SERUM No comment entered. Ordering Provider: Pricila MOLINA Report Released Date/Time: Jul 20, 2024 12:55 PM Reporting Lab: [facility] [address] [facility] [address] Performing Lab: [address] [address] FERRITIN 400.00 ng/mL H 22-275 Jul 20, 2024 01:16 PM [facility] IRON/TIBC PROFILE Specimen Type: SERUM No comment entered. Ordering Provider: Pricila MOLINA Report Released Date/Time: Jul 20, 2024 12:55 PM Reporting Lab: [facility] [address] [facility] [address] Performing Lab: [facility] [address] [place] [phone] TIBC 308 ug/dL 250-450 TRANSFERRIN 246 mg/dL 163-344 IRON SATURATION 55 H 20-50 IRON 169 ug/dL 65-175 Jul 20, 2024 01:16 PM [facility] MAGNESIUM Specimen Type: PLASMA No comment entered. Ordering Provider: Pricila MOLINA Report Released Date/Time: Jul 20, 2024 12:56 PM Reporting Lab: [facility] [address] [place] [phone] Performing Lab: [address] [address] MAGNESIUM 1.9 mg/dL 1.6-2.6 Social History: Smoking Status (Most current) and Tobacco Use (All prior to encounter date) This section includes the most current, and the historical, smoking and tobacco- related health factors from the [place] facility where the Encounter took place. Current Smoking Status This section includes the most current smoking, or tobacco-related health factor, from the [place] facility where the Encounter took place. Date/Time Current Smoking Status Comment Octavio ity May 01, 2024 03:41 PM VA-TOBACCO USER EVERY DAY [facility] Tobacco Use History This section includes a history of the smoking, or tobacco-related health factors, that were collected on or before the date of the Encounter. The data comes from the [place] facility where the Encounter took place. 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 [facility] Jul 29, 2020 01:06 PM VA-TOBACCO USE MED NO [facility] Jul 29, 2020 01:06 PM VA-TOBACCO USE WI 30 MIN OF WAKEUP [facility] Jul 29, 2020 01:06 PM VA-TOBACCO USER EVERY DAY [facility] Jan 06, 2006 10:38 AM CURRENT TOBACCO USER [facility] Jan 06, 2006 10:38 AM SMOKER 10-20 [facility] Jan 06, 2006 10:38 AM TOBACCO CONTEMPLATION STAGE [facility] May 10, 2003 08:36 AM CURRENT TOBACCO USER [facility] May 10, 2003 08:36 AM TOBACCO USE [facility] Dec 14, 2002 07:49 AM CURRENT TOBACCO USER [facility] Dec 14, 2002 07:[address] [facility] Advance Directives: All historical and current Section Date Range: From patient's date of to the date document was created. This section includes ALL of a patient's completed or amended [place] Advance and Rescinded Directives. The entries below indicate that a directive exists for the patient, but an actual copy is not included with this document. The data comes from all [facility]. Date Advance Directives Provider Source Sep 17, 2021 ADVANCE DIRECTIVE SHAHEENSHUBHAM MCKEON [facility] Oct 20, 2004 ADVANCE DIRECTIVE SAHIL WOLFE Pricila [facility] Encounter Notes: All associated encounter notes This section contains the clinical notes associated to the Encounter. Date/Time Encounter Note(s) Provider Source Jul 03, 2024 03:18 PM ADDENDUM: LOCAL TITLE: Addendum STANDARD TITLE: ADDENDUM DATE OF NOTE: JUL 03, 2024@15:18:59 ENTRY DATE: JUL 03, 2024@15:19 AUTHOR: CARMELLA STEPHEN EXP COSIGNER: URGENCY: STATUS: COMPLETED Please let patient know that cardiology consult will be placed and it is up to them if they want to refer him to community care. Please fax over records to cardiology. Thank you /grady STEPHEN M.D. PRIMARY CARE PHYSICIAN Signed: 07/03/2024 15:22 Receipt Acknowledged By: 07/05/2024 08:23 /michael/ BEN MCCOY, RN REGISTERED NURSE --- Original Document --- 06/17/24 [facility] SELF PRESENTING CARE COORD PLAN 657 STL: Emergency Notification Intake Date Presenting to the Facility: Jun Method of Contact: Notified from [facility] worklist Notification ID: [id number] [facility] Referral #: [id number] Community [facility] Name: Hospital: [facility] Address: [address] [place] [address] City: [place] State: [place] Zip Code: [address] Community Facility Point of Contact: Name: DULCE DWYER [address] Chief complaint: CHEST PAIN, HEART CATH Primary Diagnosis: I25.10 atherosclerotic heart disease of the [place] Secondary Diagnosis: I50.9 Heart Failure, Unspecified. Additional Diagnosis: I21.4 (NSTEMI) Disposition Admitted Route of Admission: ER Date of Admission: Jun Admitting Diagnosis: CHEST PAIN, HEART CATH Community Care Provider: [facility] Confirm Level of Care: Acute Inpatient Care PROVIDER CONTACT [facility] contacted on Jun to discuss admission. DORITA Rawls was unavailable ([phone]). Awaiting call back Action Needed? Yes . No records pertinent to this ER Visit found in [facility] ER. Faxed request for records to [facility]. /michael/ BEN STONE, RN REGISTERED NURSE Signed: 06/20/2024 11:48 Receipt Acknowledged By: 06/21/2024 06:23 /es/ CARMELLA STEPHEN M.D. PRIMARY CARE PHYSICIAN 06/20/2024 12:08 /es/ BEN MCCOY, RN REGISTERED NURSE 06/28/2024 ADDENDUM STATUS: COMPLETED PROVIDER CONTACT [facility] contacted on Jun to discuss admission. Per OSH is not admitted at this time Action Needed? Yes . No records pertinent to this ER Visit found in [facility] ER. Faxed request for records to [facility]. /michael/ BEN STONE, RN REGISTERED NURSE Signed: 06/28/2024 14:26 07/03/2024 ADDENDUM STATUS: COMPLETED Discharge Disposition Date of discharge: Jun Disposition Discharge to home ADM: 06/17/24-06/20/24 Records relevant to this episode of care reviewed presented to OSH for burning sensation in throat and chest. Found to have NSTEMI, right groin hematoma, and persistent nausea and reflux symptoms. Follow up with PCP follow up Cardiology Dr. Paniagua NOTICE: Follow-up care Outside the [facility] related to this ER visit/Admission episode of care (EOC) is NOT COVERED under this ER Notification ID/Auth Number. Coverage for all follow-up care outside the [facility] requires pre-authorization, which must be initiated via consult by the PCP. Please initiate any follow-up referral/consult(s) at the time of patient's discharge. DC Summary and relevant records received via [employer]. Sent to [employer] folder to be scanned into [facility]. Alerting PCP team to this note for care management. Records shared securely with PCP TEAM JOSÉ. /michael/ BEN STONE, RN REGISTERED NURSE Signed: 07/03/2024 14:45 Receipt Acknowledged By: 07/03/2024 15:18 /michael/ CARMELLA STEPHEN M.D. PRIMARY CARE PHYSICIAN 07/03/2024 15:00 /michael/ BEN MCCOY, RN REGISTERED NURSE CARMELLA STEPHEN [facility] Jul 03, 2024 02:29 PM ADDENDUM: LOCAL TITLE: Addendum STANDARD TITLE: ADDENDUM DATE OF NOTE: JUL 03, 2024@14:29:24 ENTRY DATE: JUL 03, 2024@14:29:25 AUTHOR: MELECIO US EXP COSIGNER: URGENCY: STATUS: COMPLETED Discharge Disposition Date of discharge: Jun Disposition Discharge to home ADM: 06/17/24-06/20/24 Records relevant to this episode of care reviewed presented to OSH for burning sensation in throat and chest. Found to have NSTEMI, right groin hematoma, and persistent nausea and reflux symptoms. Follow up with PCP follow up Cardiology Dr. Paniagua NOTICE: Follow-up care Outside the [facility] related to this ER visit/Admission episode of care (EOC) is NOT COVERED under this ER Notification ID/Auth Number. Coverage for all follow-up care outside the [facility] requires pre-authorization, which must be initiated via consult by the PCP. Please initiate any follow-up referral/consult(s) at the time of patient's discharge. DC Summary and relevant records received via [employer]. Sent to [employer] folder to be scanned into [facility]. Alerting PCP team to this note for care management. Records shared securely with PCP TEAM JOSÉ. /michael/ BEN STONE, RN REGISTERED NURSE Signed: 07/03/2024 14:45 Receipt Acknowledged By: 07/03/2024 15:18 /grady STEPHEN M.D. PRIMARY CARE PHYSICIAN 07/03/2024 15:00 /BEN Bruce, RN REGISTERED NURSE --- Original Document --- 06/17/24 [facility]ARE-[facility] SELF PRESENTING CARE COORD PLAN 657 STL: Emergency Notification Intake Date Presenting to the Facility: Jun Method of Contact: Notified from [employer] worklist Notification ID: [id number] [facility] Referral #: [id number] [facility] Hospital Name: Hospital: [facility] Address: [address] [place] [address] City: [place] State: [place] Zip Code: [address] [facility] Facility Point of Contact: Name: DULCE West DWYER [address] Chief complaint: CHEST PAIN, HEART CATH Primary Diagnosis: I25.10 atherosclerotic heart disease of the [place] Secondary Diagnosis: I50.9 Heart Failure, Unspecified. Additional Diagnosis: I21.4 (NSTEMI) Disposition Admitted Route of Admission: ER Date of Admission: Jun Admitting Diagnosis: CHEST PAIN, HEART CATH Community Care Provider: [facility] Confirm Level of Care: Acute Inpatient Care PROVIDER CONTACT [facility] contacted on Jun to discuss admission. DORITA Rawls was unavailable ([phone]). Awaiting call back Action Needed? Yes . No records pertinent to this ER Visit found in [facility]. Faxed [facility]. /BEN Fox, RN REGISTERED NURSE Signed: 06/20/2024 11:48 Receipt Acknowledged By: 06/21/2024 06:23 /grady Chaparro.D. PRIMARY CARE PHYSICIAN 06/20/2024 12:08 /es/ BEN MCCOY, RN REGISTERED NURSE 06/28/2024 ADDENDUM STATUS: COMPLETED PROVIDER CONTACT [facility] contacted on Jun to discuss admission. Per OSH is not admitted at this time Action Needed? Yes . No records pertinent to this ER Visit found in [facility]. Faxed request for records to above hospital. /michael/ BEN STONE, RN REGISTERED NURSE Signed: 06/28/2024 14:26 MELECIO US [facility] Jun 17, 2024 11:05 AM NONVA NOTE: LOCAL TITLE: [facility] SELF PRESENTING CARE COORD PLAN STANDARD TITLE: NONVA NOTE DATE OF NOTE: JUN 17, 2024@11:05 ENTRY DATE: JUN 20, 2024@11:05:41 AUTHOR: MELECIO US EXP COSIGNER: URGENCY: STATUS: COMPLETED [facility] SELF PRESENTING CARE COORD PLAN [address] Has ADDENDA Emergency Notification Intake Date Presenting to the Facility: Jun Method of Contact: Notified from [employer] worklist Notification ID: [id number] [facility] Referral #: [id number] [facility] Hospital Name: Hospital: [facility] Address: [address] [place] [address] City: [place] State: [place] Zip Code: [address] Community Facility Point of Contact: Name: DULCE West DWYER [address]47 Chief complaint: CHEST PAIN, HEART CATH Primary Diagnosis: I25.10 atherosclerotic heart disease of the [place] Secondary Diagnosis: I50.9 Heart Failure, Unspecified. Additional Diagnosis: I21.4 (NSTEMI) Disposition Admitted Route of Admission: ER Date of Admission: Jun Admitting Diagnosis: CHEST PAIN, HEART CATH Community Care Provider: [facility] Confirm Level of Care: Acute Inpatient Care PROVIDER CONTACT [facility] contacted on Jun to discuss admission. DORITA Rawls was unavailable ([phone]). Awaiting call back Action Needed? Yes . No records pertinent to this ER Visit found in [facility]. Faxed request for records to above hospital. /BEN Fox, RN REGISTERED NURSE Signed: 06/20/2024 11:48 Receipt Acknowledged By: 06/21/2024 06:23 /grady STEPHEN M.D. PRIMARY CARE PHYSICIAN 06/20/2024 12:08 /BEN Bruce, RN REGISTERED NURSE 06/28/2024 ADDENDUM STATUS: COMPLETED PROVIDER CONTACT [facility] contacted on Jun to discuss admission. Per OSH is not admitted at this time Action Needed? Yes . No records pertinent to this ER Visit found in [facility]. Faxed request for records to above hospital. /BEN Fox, RN REGISTERED NURSE Signed: 06/28/2024 14:26 07/03/2024 ADDENDUM STATUS: COMPLETED Discharge Disposition Date of discharge: Jun Disposition Discharge to home ADM: 06/17/24-06/20/24 Records relevant to this episode of care reviewed [facility] presented to OSH for burning sensation in throat and chest. Found to have NSTEMI, right groin hematoma, and persistent nausea and reflux symptoms. Follow up with PCP follow up Cardiology Dr. Paniagua NOTICE: Follow-up care Outside the [facility] related to this ER visit/Admission episode of care (EOC) is NOT COVERED under this ER Notification ID/Auth Number. Coverage for all follow-up care outside the VA requires pre-authorization, which must be initiated via consult by the PCP. Please initiate any follow-up referral/consult(s) at the time of patient's discharge. DC Summary and relevant records received via [employer]. Sent to [facility] folder to be scanned into [facility]. Alerting PCP team to this note for care management. Records shared securely with PCP TEAM RNCM. /BEN Fox, RN REGISTERED NURSE Signed: 07/03/2024 14:45 Receipt Acknowledged By: 07/03/2024 15:18 /grady STEPHEN M.D. PRIMARY CARE PHYSICIAN 07/03/2024 15:00 /BEN Bruce, RN REGISTERED NURSE 07/03/2024 ADDENDUM STATUS: COMPLETED Please let patient know that cardiology consult will be placed and it is up to them if they want to refer him to community care. Please fax over records to cardiology. Thank you /michael/ CARMELLA STEPHEN M.D. PRIMARY CARE PHYSICIAN Signed: 07/03/2024 15:22 Receipt Acknowledged By: * AWAITING SIGNATURE * BRITANY RAMIREZ,[facility]
--- OUTSIDE RECORDS SUMMARY | 2024-08-28 18:22 | XMS_ITS | Encounter Summary ---
Author Name [facility] [place] [facility] [place] Address [address] [place] [address] Care Team Providers Care Equipment Operation Instructor Name Role Phone CARMELLA STEPHEN Primary Care [...] PART A Dec 02, 2004 PART A [id number] GODWINJENNIFERRobert Agudelo PATIENT MEDICARE (WNR) MEDICARE (M) PART B Dec 02, 2004 PART B [id number] REKHA CONNELLY PATIENT MEDICARE (WNR) MEDICARE (M) PART A Dec 02, 2004 PART A [id number] [phone] GODWINJENNIFERRobert Agudelo PATIENT MEDICARE (WNR) MEDICARE (M) PART B Dec 02, 2004 PART B [id number] REKHA CONNELLY PATIENT Selected Encounter This section includes the information on record at [place] for the Encounter. Date/Time Encounter Type Encounter Description Reason Provider Source Jun 20, 2024 08:27 AM Outpatient Encounter GENERAL INTERNAL MEDICINE BALBINA COOLEY Jagjit Encounter Template Text not used by [place] Plan of Treatment: Future Appointments (+ 6 months) and Future Tests (+/- 45 days) The Plan of Treatment section includes future care activities for the [place] from all [place] [facility]. This section includes future appointments and future orders which are active, pending or scheduled. Future Appointments This section includes appointments that were scheduled to occur 6 months from the date of the Encounter, up to a maximum of 20 appointments. The data comes from all [facility]. Appointment Date/Time Appointment Type Appointme nt Facility Name Jul 03, 2024 11:00 AM AMBULATORY - MEDICINE [facility] Jul 07, 2024 08:00 AM AMBULATORY - NONE [facility] Jul 09, 2024 01:00 PM AMBULATORY - MEDICINE [facility] Jul 17, 2024 11:00 AM AMBULATORY - MEDICINE [facility] Jul 18, 2024 11:00 AM AMBULATORY - MEDICINE [facility] Jul 20, 2024 12:30 PM AMBULATORY - MEDICINE [facility] Aug 22, 2024 11:00 AM AMBULATORY - MEDICINE [facility] Aug 24, 2024 02:00 PM AMBULATORY - MEDICINE [facility] Sep 24, 2024 02:00 PM AMBULATORY - MEDICINE [facility] November 01, 2024 03:00 PM AMBULATORY - MEDICINE [facility] Active, Pending, and Scheduled Orders This section includes a listing of several types of active, pending, and scheduled orders, including clinic medications orders, diagnostic test orders, procedure orders and consult orders; where the start date of the order is 45 days before the date of the Encounter or 45 days after the date of theEncounter. The data comes from all [facility]. Test Date/Time Test Type Test Details Facility Name Jul 03, 2024 03:14 PM Consult Order [facility] Cons Serology Technician's Choice [facility] Jul 09, 2024 12:00 AM Laboratory - Chemi stry Order MICRAL/CREAT PROFILE (STL) URINE YELLOW SP [facility] Jul 09, 2024 12:00 AM Laboratory - Chemi stry Order PROTEIN URINE URINE YELLOW SP [facility] Jul 18, 2024 10:57 AM Procedure Order CP EKG STL CP EKG - STL Proc Serology Technician's [facility] Lab Results: +/- 30 days of the encounter This section includes the Chemistry and Hematology Lab Results on record with [place] for the patient. Radiology Reports and Pathology Reports are provided separately, in subsequent sections. Lab Results This section contains the Chemistry/Hematology Results that were resulted 30 days before or 30 daysafter the date of the Encounter. Date/Time Source Result Type Result - Unit Interpretation Reference Range Comment Jul 20, 2024 01:17 PM [facility] VITAMIN D, 25-HYDROXY Specimen Type: SERUM No comment entered. Ordering Provider: Pricila MOLINA Report Released Date/Time: Jul 09, 2024 02:40 PM Reporting Lab: [address] [phone] Performing Lab: [address] [phone] VITAMIN D, 25-HYDROXY 37.1 ng/mL 30-96 Jul 20, 2024 01:17 PM [facility] PTH, INTACT (STL) Specimen Type: SERUM No comment entered. Ordering Provider: Pricila MOLINA Report Released Date/Time: Jul 09, 2024 02:40 PM Reporting Lab: [address] [address] Performing Lab: [address] [address] PTH, INTACT (STL) 89.50 pg/mL H 8.7-77.7 Jul 20, 2024 01:17 PM [facility] RENAL PANEL Specimen Type: PLASMA Comment: No hemolysis noted. Ordering Provider: Pricila MOLINA Report Released Date/Time: Jul 09, 2024 02:40 PM Reporting Lab: [facility] [address] [place] [phone] Performing Lab: [address] [address] CREATININE 3.88 mg/dL H 0.7-1.3 UREA NITROGEN 53.0 mg/dL H 9.0-25.0 GLUCOSE 220 mg/dL H 72-99 SODIUM 136 meq/L 136-145 POTASSIUM 4.3 meq/L 3.5-5 CHLORIDE 98 meq/L 98-107 CARBON DIOXIDE 27 meq/L 22-31 CALCIUM 9.8 mg/dL 8.4-10.4 PHOSPHOROUS 3.3 mg/dL 2.3-4.7 ALBUMIN 3.7 g/dL 3.4-5 EGFR (CKD-EPI 2020) 14.6 LL >60 Jul 20, 2024 01:17 PM [facility] CBC Specimen Type: BLOOD No comment entered. Ordering Provider: Pricila MOLINA Report Released Date/Time: Jul 09, 2024 02:40 PM Reporting Lab: [address] [phone] Performing Lab: [address] [address] WBC 8.4 10*3/uL 3.6-11.2 RBC 3.84 10*6/uL [...] 10*3/uL 0.00-0.20 Jul 20, 2024 01:16 PM [facility] IRON/TIBC PROFILE Specimen Type: SERUM No comment entered. Ordering Provider: Pricila MOLINA Report Released Date/Time: Jul 20, 2024 12:55 PM Reporting Lab: [facility] [address] [place] [phone] Performing Lab: [address] [address] TIBC 308 ug/dL 250-450 TRANSFERRIN 246 mg/dL 163-344 IRON SATURATION 55 H 20-50 IRON 169 ug/dL 65-175 Jul 20, 2024 01:16 PM [facility] FERRITIN Specimen Type: SERUM No comment entered. Ordering Provider: Pricila MOLINA Report Released Date/Time: Jul 20, 2024 12:55 PM Reporting Lab: [facility] [address] [facility] [address] Performing Lab: [address] [address] FERRITIN 400.00 ng/mL H 22-275 Jul 20, 2024 01:16 PM [facility] MAGNESIUM Specimen Type: PLASMA No comment entered. Ordering Provider: Pricila MOLINA Report Released Date/Time: Jul 20, 2024 12:56 PM Reporting Lab: [facility] [address] [place] [phone] Performing Lab: [address] [phone] MAGNESIUM 1.9 mg/dL 1.6-2.6 Social History: Smoking Status (Most current) and Tobacco Use (All prior to encounter date) This section includes the most current, and the historical, smoking and tobacco- related health factors from the [place] facility where the Encounter took place. Current Smoking Status This section includes the most current smoking, or tobacco-related health factor, from the [place] facility where the Encounter took place. Date/Time Current Smoking Status Comment Octavio ity May 01, 2024 03:41 PM VA-TOBACCO USER EVERY DAY [facility] Tobacco Use History This section includes a history of the smoking, or tobacco-related health factors, that were collected on or before the date of the Encounter. The data comes from the [place] facility where the Encounter took place. 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 [facility] May 01, 2024 03:41 PM VA-TOBACCO USE MED NO [facility] May 01, 2024 03:41 PM VA-TOBACCO USE WI 30 MIN OF WAKEUP [facility] May 01, 2024 03:41 PM VA-TOBACCO USER EVERY DAY [facility] Jul 29, 2020 01:06 PM VA-TOBACCO USE 30 YEARS OR MORE [facility] Jul 29, 2020 01:06 PM VA-TOBACCO USE ADVICE [facility] Jul 29, 2020 01:06 PM 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 [facility] Jul 29, 2020 01:06 PM VA-TOBACCO USE MED NO [facility] Jul 29, 2020 01:06 PM VA-TOBACCO USE WI 30 MIN OF WAKEUP [facility] Jul 29, 2020 01:06 PM VA-TOBACCO USER EVERY DAY [facility] Jan 06, 2006 10:38 AM CURRENT TOBACCO USER [facility] Jan 06, 2006 10:38 AM SMOKER 10-20 [facility] Jan 06, 2006 10:38 AM TOBACCO CONTEMPLATION STAGE [facility] May 10, 2003 08:36 AM CURRENT TOBACCO USER [facility] May 10, 2003 08:36 AM TOBACCO USE [facility] Dec 14, 2002 07:49 AM CURRENT TOBACCO [facility] Dec 14, 2002 07:[address] [facility] Advance Directives: All historical and current Section Date Range: From patient's date of to the date document was created. This section includes ALL of a patient's completed or amended [place] Advance and Rescinded Directives. The entries below indicate that a directive exists for the patient, but an actual copy is not included with this document. The data comes from all [facility]. Date Advance Directives Provider Source Sep 17, 2021 ADVANCE DIRECTIVE SHAHEEN,SHUBHAMMARCUS NGUYEN IS [facility] Oct 20, 2004 ADVANCE DIRECTIVE SAHIL WOLFE Pricila [facility] Encounter Notes: All associated encounter notes This section contains the clinical notes associated to the Encounter. Date/Time Encounter Note(s) Provider Source Jun 25, 2024 02:22 PM ADDENDUM: LOCAL TITLE: Addendum STANDARD TITLE: ADDENDUM DATE OF NOTE: JUN 25, 2024@14:22:20 ENTRY DATE: JUN 25, 2024@14:22:21 AUTHOR: BALBINA COOLEY EXP COSIGNER: URGENCY: STATUS: COMPLETED Discharge Disposition Date of discharge: Jun Disposition Discharge to Comment: tx for higher level of care Records r/t this episode of care received; sent to [facility] for scanning. Alerting PCP team to this note for continuity of care. /michael/ BALBINA COOLEY REGISTERED NURSE Signed: 06/25/2024 14:24 Receipt Acknowledged By: 06/28/2024 15:37 /es/ CARMELLA STEPHEN M.D. PRIMARY CARE PHYSICIAN 06/25/2024 15:00 /michael/ BEN MCCOY, RN REGISTERED NURSE ====== --- Original Document --- 06/14/24 [facility] SELF PRESENTING CARE COORD PLAN 657 STL: Emergency Notification Intake Date Presenting to the Facility: Jun Method of Contact: Notified from [employer] worklist Notification ID: [id number] [facility] Referral #: [id number] [facility] Name: [facility] Address: City: [place] State: [place] Zip Code: Phone : [facility] Point of Contact: Name: Phone: Chief complaint: COULDN'T BREATHE Primary Diagnosis: Disposition Discharged Date of discharge: Jun Discharge to home Per Jul at [facility], patient was DC from [facility]. No records pertinent to this ER Visit found in EHR. Faxed request for records to above hospital. Alerting PCP team to this note for continuity of care. /michael/ BALBINA COOLEY REGISTERED NURSE Signed: 06/20/2024 08:30 Receipt Acknowledged By: 06/21/2024 06:22 /michael/ CARMELLA STEPHEN M.D. PRIMARY CARE PHYSICIAN 06/20/2024 12:09 /michael/ BEN MCCOY, RN REGISTERED NURSE BALBINA COOLEY [facility] Jun 14, 2024 08:27 AM NONVA NOTE: LOCAL TITLE: [facility] SELF PRESENTING CARE COORD PLAN STANDARD TITLE: NONVA NOTE DATE OF NOTE: JUN 14, 2024@08:27 ENTRY DATE: JUN 20, 2024@08:28:10 AUTHOR: BALBINA COOLEY EXP COSIGNER: URGENCY: STATUS: COMPLETED [facility] SELF PRESENTING CARE COORD PLAN [address] Has ADDENDA Emergency Notification Intake Date Presenting to the Facility: Jun Method of Contact: Notified from [employer] worklist Notification ID: [id number] [facility] Referral #: [id number] [facility] Name: Hospital[facility] Address: City: [place] State: [place] Zip Code: Phone : [facility] Point of Contact: Name: Phone: Chief complaint: COULDN'T BREATHE Primary Diagnosis: Disposition Discharged Date of discharge: Jun Discharge to home Per Jul at [facility], patient was DC from [facility]. No records pertinent to this ER Visit found in EHR. Faxed request for records to above hospital. Alerting PCP team to this note for continuity of care. /es/ BALBINA COOLEY REGISTERED NURSE Signed: 06/20/2024 08:30 Receipt Acknowledged By: 06/21/2024 06:22 /es/ CARMELLA STEPHEN M.D. PRIMARY CARE PHYSICIAN 06/20/2024 12:09 /es/ TAMMIE MCCOYN, RN REGISTERED NURSE 06/25/2024 ADDENDUM STATUS: COMPLETED Discharge Disposition Date of discharge: Jun Disposition Discharge to Comment: tx for higher level of care Records r/t this episode of care received; sent to [facility] for scanning. Alerting PCP team to this note for continuity of care. /michael/ BALBINA COOLEY REGISTERED NURSE Signed: 06/25/2024 14:24 BALBINA COOLEY [facility]
--- OUTSIDE RECORDS SUMMARY | 2024-08-28 18:22 | XMS_ITS ---
Author Name [facility] [facility] [place] Address [address] [place] [address] Care Team Providers Care Ostomy Rn Name Role Phone HAILEE CARMELLA Primary Care [...] PART A Dec 02, 2004 PART A [id number] GODWINJENNIFERRobert Agudelo PATIENT MEDICARE (WNR) MEDICARE (M) PART B Dec 02, 2004 PART B [id number] [phone] REKHA CONNELLY PATIENT MEDICARE (WNR) MEDICARE (M) PART A Dec 02, 2004 PART A [id number] GODWINJENNIFERRobret Agudelo PATIENT MEDICARE (WNR) MEDICARE (M) PART B Dec 02, 2004 PART B [id number] REKHA CONNELLY PATIENT Selected Encounter This section includes the information on record at [place] for the Encounter. 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 [facility] Aug 08, 2024 01:02 PM SECONDARY Chronic kidney disease, stage 3b [facility] Aug 08, 2024 01:02 PM SECONDARY Essential (primary) hypertension [facility] Aug 08, 2024 01:02 PM SECONDARY Mixed hyperlipidemia [facility] Aug 08, 2024 01:02 PM SECONDARY Nicotine dependence, cigarettes, uncomplicated [facility] Aug 08, 2024 01:02 PM SECONDARY Type 2 diabetes mellitus without complications [facility] Plan of Treatment: Future Appointments (+ 6 months) and Future Tests (+/- 45 days) The Plan of Treatment section includes future care activities for the patient from all [facility]. This section includes future appointments and future orders which are active, pending or scheduled. Future Appointments This section includes appointments that were scheduled to occur 6 months from the date of the Encounter, up to a maximum of 20 appointments. The data comes from all [place] treatment [facility]. Appointment Date/Time Appointment Type Appointme nt Facility Name Jul 20, 2024 12:30 PM AMBULATORY - MEDICINE [facility] Aug 22, 2024 11:00 AM AMBULATORY - MEDICINE [facility] Aug 24, 2024 02:00 PM AMBULATORY - MEDICINE [facility] Sep 24, 2024 02:00 PM AMBULATORY - MEDICINE [facility] November 01, 2024 03:00 PM AMBULATORY - MEDICINE [facility] Dec 28, 2024 02:00 PM AMBULATORY - MEDICINE [facility] Active, Pending, and Scheduled Orders This section includes a listing of several types of active, pending, and scheduled orders, including clinic medications orders, diagnostic test orders, procedure orders and consult orders; where the start date of the order is 45 days before the date of the Encounter or 45 days after the date of theEncounter. The data comes from all [place] treatment facilities. Test Date/Time Test Type Test Details Facility Name Jul 03, 2024 03:14 PM Consult Order [facility] Cons Protection Specialist's [facility] Jul 09, 2024 12:00 AM Laboratory - Chemi stry Order PROTEIN URINE URINE YELLOW SP [facility] Jul 09, 2024 12:00 AM Laboratory - Chemi stry Order MICRAL/CREAT PROFILE (STL) URINE YELLOW SP [facility] Jul 18, 2024 10:57 AM Procedure Order CP EKG STL CP EKG - STL Proc [facility] Aug 24, 2024 06:19 PM Consult Order VASCULAR S URG I CLAUDICATING/NON-HEAL ING [facility] Lab Results: +/- 30 days of the encounter This section includes the Chemistry and Hematology Lab Results on record with [place] for the patient. Radiology Reports and Pathology Reports are provided separately, in subsequent sections. Lab Results This section contains the Chemistry/Hematology Results that were resulted 30 days before or 30 daysafter the date of the Encounter. Date/Time Source Result Type Result - Unit Interpretation Reference Range Comment Jul 20, 2024 01:17 PM [facility] VITAMIN D, 25-HYDROXY Specimen Type: SERUM No comment entered. Ordering Provider: Pricila MOLINA Report Released Date/Time: Jul 09, 2024 02:40 PM Reporting Lab: [place] [address] [address] [facility] [address] Performing Lab: [facility] [place] [address] [address] VITAMIN D, 25-HYDROXY 37.1 ng/mL 30-96 Jul 20, 2024 01:17 PM [facility] PTH, INTACT (STL) Specimen Type: SERUM No comment entered. Ordering Provider: Pricila MOLINA Report Released Date/Time: Jul 09, 2024 02:40 PM Reporting Lab: [address] [address] Performing Lab: [address] [address] PTH, INTACT (STL) 89.50 pg/mL H 8.7-77.7 Jul 20, 2024 01:17 PM [facility] RENAL PANEL Specimen Type: PLASMA Comment: No hemolysis noted. Ordering Provider: Pricila MOLINA Report Released Date/Time: Jul 09, 2024 02:40 PM Reporting Lab: [address] [address] Performing Lab: [address] [address] CREATININE 3.88 mg/dL H 0.7-1.3 UREA NITROGEN 53.0 mg/dL H 9.0-25.0 GLUCOSE 220 mg/dL H 72-99 SODIUM 136 meq/L 136-145 POTASSIUM 4.3 meq/L 3.5-5 CHLORIDE 98 meq/L 98-107 CARBON DIOXIDE 27 meq/L 22-31 CALCIUM 9.8 mg/dL 8.4-10.4 PHOSPHOROUS 3.3 mg/dL 2.3-4.7 ALBUMIN 3.7 g/dL 3.4-5 EGFR (CKD-EPI 2020) 14.6 LL >60 Jul 20, 2024 01:17 PM [facility] CBC Specimen Type: BLOOD No comment entered. Ordering Provider: Pricila MOLINA Report Released Date/Time: Jul 09, 2024 02:40 PM Reporting Lab: [address] [address] Performing Lab: [address] [address] WBC 8.4 10*3/uL 3.6-11.2 RBC 3.84 10*6/uL [...] 10*3/uL 0.00-0.20 Jul 20, 2024 01:16 PM [facility] FERRITIN Specimen Type: SERUM No comment entered. Ordering Provider: Pricila MOLINA Report Released Date/Time: Jul 20, 2024 12:55 PM Reporting Lab: [address] [address] Performing Lab: [address] [address] FERRITIN 400.00 ng/mL H 22-275 Jul 20, 2024 01:16 PM [facility] MAGNESIUM Specimen Type: PLASMA No comment entered. Ordering Provider: Pricila MOLINA Report Released Date/Time: Jul 20, 2024 12:56 PM Reporting Lab: [address] [address] Performing Lab: [address] [address] MAGNESIUM 1.9 mg/dL 1.6-2.6 Jul 20, 2024 01:16 PM [facility] IRON/TIBC PROFILE Specimen Type: SERUM No comment entered. Ordering Provider: Pricila MOLINA Report Released Date/Time: Jul 20, 2024 12:55 PM Reporting Lab: [facility] [address] [place] [address] Performing Lab: [facility] [address] [place] [address] TIBC 308 ug/dL 250-450 TRANSFERRIN 246 mg/dL 163-344 IRON SATURATION 55 H 20-50 IRON 169 ug/dL 65-175 Vital Signs: All taken on the encounter date This section contains inpatient and outpatient Vital Signs collected on the date of the Encounter. Date/Time Temperature Pulse Blood Pressure Respiratory Rate SP02 Pain Height Weight Body Mass Index Source Jul 18, 2024 10:40 AM 97.6 63 146/61 18 98 0 214.7 31 [facility] Social History: Smoking Status [...] Date/Time Current Smoking Status Comment Octavio ity Feb 08, 2023 02:00 PM VA-TOBACCO USER EVERY DAY [facility] Tobacco Use History This section includes a history of the smoking, or tobacco-related health factors, that were collected on or before the date of the Encounter. The data comes from the [place] facility where the Encounter took place. Date/Time Smoking Status/Tobacco Use Comment F acility Feb 08, 2023 02:00 PM VA-TOBACCO USE ADVICE [facility] Feb 08, 2023 02:00 PM VA-TOBACCO USE SUPERVISOR SAWMILL NO [facility] Feb 08, 2023 02:00 PM VA-TOBACCO USE MED NO [facility] Feb 08, 2023 02:00 PM VA-TOBACCO USE [place] 30 MIN OF WAKEUP [facility] Feb 08, 2023 02:00 PM VA-TOBACCO USER EVERY DAY [facility] Sep 08, 2021 11:00 AM VA-TOBACCO USE 30 YEARS OR MORE [facility] Sep 08, 2021 11:00 AM VA-TOBACCO USE ADVICE [facility] Sep 08, 2021 11:00 AM VA-TOBACCO USE SUPERVISOR SAWMILL NO [facility] Sep 08, 2021 11:00 AM VA-TOBACCO USE MED NO [facility] Sep 08, 2021 11:00 AM VA-TOBACCO USE [place] 30 MIN OF WAKEUP [facility] Sep 08, 2021 11:00 AM VA-TOBACCO USER EVERY DAY [facility] Mar 12, 2019 03:39 PM VA-TOBACCO USE 30 YEARS OR MORE [facility] Mar 12, 2019 03:39 PM VA-TOBACCO USE ADVICE [facility] Mar 12, 2019 03:39 PM VA-TOBACCO USE SUPERVISOR SAWMILL NO [facility] Mar 12, 2019 03:39 PM VA-TOBACCO USE MED NO [facility] Mar 12, 2019 03:39 PM VA-TOBACCO USE [place] 30 MIN OF WAKEUP [facility] Mar 12, 2019 03:39 PM VA-TOBACCO USER EVERY DAY [facility] Feb 02, 2018 03:18 PM VA-TOBACCO USE 30 YEARS OR MORE [facility] Feb 02, 2018 03:18 PM VA-TOBACCO USE ADVICE [facility] Feb 02, 2018 03:18 PM VA-TOBACCO USE SUPERVISOR SAWMILL NO [facility] Feb 02, 2018 03:18 PM VA-TOBACCO USE MED NO [facility] Feb 02, 2018 03:18 PM VA-TOBACCO USE [place] 30 MIN OF WAKEUP [facility] Feb 02, 2018 03:18 PM VA-TOBACCO USER EVERY DAY [facility] Jan 30, 2018 09:59 AM CURRENT TOBACCO USER [facility] Jan 30, 2018 09:59 AM CURRENT TOBACCO US ER (NOT READY TO QUIT) [facility] Jan 30, 2018 09:59 AM TOBACCO CESSATION REFERRAL DECLINED [facility] Jan 30, 2018 09:59 AM TOBACCO MEDS OFFER ED BUT DECLINED [facility] Jan 30, 2018 09:59 AM TOBACCO USER OFFERED MEDS [facility] Aug 01, 2017 02:17 PM CURRENT TOBACCO USER [facility] Aug 01, 2017 02:17 PM CURRENT TOBACCO US ER (NOT READY TO QUIT) [facility] Aug 01, 2017 02:17 PM TOBACCO CESSATION REFERRAL DECLINED [facility] Aug 01, 2017 02:17 PM TOBACCO MEDS OFFER ED BUT DECLINED [facility] Aug 01, 2017 02:17 PM TOBACCO USER OFFERED MEDS [facility] Jan 28, 2017 02:26 PM CURRENT TOBACCO USER [facility] Jan 28, 2017 02:26 PM TOBACCO MEDS OFFER ED BUT DECLINED [facility] Aug 12, 2015 02:28 PM CURRENT TOBACCO USER [facility] Aug 12, 2015 02:28 PM TOBACCO MEDS OFFER ED BUT DECLINED [facility] November 28, 2013 10:03 AM CURRENT TOBACCO USER [facility] November 28, 2013 10:03 AM TOBACCO MEDS OFFER ED BUT DECLINED [facility] Jan 08, 2013 01:54 PM CURRENT TOBACCO USER [facility] Jan 08, 2013 01:54 PM TOBACCO MEDS OFFER ED BUT DECLINED [facility] Sep 29, 2011 08:54 AM CURRENT TOBACCO USER [facility] Sep 29, 2011 08:54 AM TOBACCO OFFERRED P T MEDS (PROVIDER) [facility] Aug 12, 2010 09:47 AM CURRENT TOBACCO USER [facility] Jul 31, 2009 01:27 PM CURRENT TOBACCO USER [facility] Jul 31, 2009 01:27 PM TOBACCO OFFERED PT MEDS (PROVIDER) [facility] Aug 09, 2008 11:25 AM CURRENT TOBACCO USER [facility] November 03, 2007 08:51 AM CURRENT TOBACCO USER [facility] November 03, 2007 08:51 AM TOBACCO OFFERRED P T MEDS (PROVIDER) [facility] Jun 13, 2007 10:53 AM CURRENT TOBACCO USER [facility] Jun 13, 2007 10:53 AM TOBACCO MEDS OFFER ED BUT DECLINED [facility] Jun 13, 2007 10:[address] OP SMOKING CLINIC [facility] November 30, 2006 01:07 PM CURRENT TOBACCO USER [facility] Jun 17, 2006 10:46 AM CURRENT TOBACCO USER [facility] Sep 24, 2005 09:53 AM CURRENT TOBACCO USER [facility] Sep 24, 2005 09:53 AM SMOKER 10-20 [facility] Sep 24, 2005 09:53 AM TOBACCO CONTEMPLATION STAGE [facility] Jan 29, 2005 09:08 AM CURRENT NON-TOBACC O USER-HX OF USE [facility] Jan 29, 2005 09:08 AM TOBACCO ACTION STAGE [facility] Mar 24, 2004 02:13 PM CURRENT TOBACCO USER [facility] Mar 24, 2004 02:13 PM SMOKER 1-2 [facility] Mar 24, 2004 02:13 PM TOBACCO PRECONTEMPLATION STAGE [facility] Advance Directives: All historical and current [...] Sep 17, 2021 ADVANCE DIRECTIVE SHUBHAM JAMISON LITO IS [facility] Oct 20, 2004 ADVANCE DIRECTIVE SAHIL WOLFE [facility] Encounter Notes: All associated encounter notes This section contains the clinical notes associated to the Encounter. Date/Time Encounter Note(s) Provider Source Jul 18, 2024 10:39 AM CARDIOLOGY CONSULT : LOCAL TITLE: CARDIOLOGY OUTPATIENT CONSULT [facility] STANDARD TITLE: CARDIOLOGY CONSULT DATE OF NOTE: JUL 18, 2024@10:39 ENTRY DATE: JUL 18, 2024@10:40 AUTHOR: CAMILO KOOIGNER: URGENCY: STATUS: COMPLETED Cardiology CONSULT Clinic Visit Note Reason for consult: Patient had non-ST elevation myocardial infarction at [facility]-records will be faxed over. Patient needs follow-up Referring provider: Chart was reviewed and history obtained from the patient. Discharge summary records from [facility] dated June 20, 2024 reviewed. He was admitted with burning sensation in throat and chest, shortness of breath, diagnosed to have non-STEMI with troponin of 9.5, underwent PCI, discharged on dual antiplatelet therapy, beta-marion, high-dose statin, had right groin hematoma but hemoglobin was stable. Discharge medications: Lasix 40 mg, Crestor 40 mg, Brilinta 90 mg twice a day, spironolactone 25 mg, amlodipine 10 mg, aspirin 81 mg, lisinopril 40 mg, metoprolol tartrate 50 mg twice a day. Chlorthalidone and Plavix were discontinued. History of present illness: This is 84 year old MALE last seen by Dr Nettles in 2010. He was accompanied by son-in-law for office visit today. He was admitted at [facility] in June 2024 for chest pain, ruled in for non- STEMI, underwent PCI with 2 stents, details outlined below, reportedly had right groin hematoma postprocedure but did not require blood transfusion. Reportedly he was also noted to have right lower extremity peripheral artery disease with abnormal SINDHU and needs additional procedure subject to his kidney function, he has an appointment with nephrology later this week. He currently denies any chest pain or shortness of breath, his main symptom at present is right lower extremity claudication. Denies any palpitation, dizziness, syncope. He has diabetes, hypertension, hyperlipidemia and CKD, estimated GFR in October 2023 was 33 mL/min. He is an active smoker. Cardiology history/evaluations: 10/2004: Cath: Conclusion: 1. significant 3 vessel CAD (including hemodynamically significant LAD stenosis by FFR = 0.67 2. akinetic inferior/inferobasal segment with preserved EF 55% 2005: CABG in 2004 for 3-vessel disease (LAD 60%, LCfx 90%, RCA 100%) on cath. 08/2009: Treadmill: MAXIMAL treadmill exercise test, NEGATIVE for ECG evidence of myocardial ischemia. Borderline STT changes at rest, frequent PVC, NSVT during exercise 11/2022: Surgical revascularization of LICA stenosis. 11/2023: TTE EF 55-60%, trace MR. 06/2024: Echocardiogram at [facility]: Ejection fraction 58% with mild and AR 06/18/2024: Cath and PCI at [facility]: CONCLUSIONS: 1. Severe, 99% ostial stenosis of the radial graft to the diagonal/LAD with SHANNAN one flowstatus post percutaneous coronary intervention with placement of a 2.5 x 18 mm OnyxFrontier eluting stent, postdilated with a 3.0 and 3.25 mm NC emerge balloons. 2. Severe, 95% stenosis in the mid LAD status post percutaneous coronary interventionwith placement of a 2.5 x 22 mm Cruger [place] drug-eluting stent. 3. Widely patent FRANCIS graft to the midportion of the second obtuse marginal vessel thatprovides [id number] collaterals to the distal right PDA. 4. Severe wiyot coronary artery disease as stated above. 100% occlusion of the proximalright coronary artery with right to right bridging collaterals to the distal rightcoronary artery. 5. Elevated LVEDP at 25 mmHg. 06/20/2024: SINDHU CONCLUSIONS: Done at [facility] 1. The right Ankle/Brachial Index is consistent with severe arterial occlusive disease. 2. The left Ankle/Brachial Index is consistent with mild arterial occlusive disease. 3. Right great toe pressure is immeasurable which may be consistent with vasospasm or pedal artery disease. 4. Left great toe pressure is adequate for wound healing potential. Family history: Strong FH of CAD in siblings Social history: lives alone. TOBACCO USE - active smoker ALCOHOL USE - denies All patients are counseled on the risks of smoking at every visit including patients with no history of smoking in order to dissuade them from starting the use of tobacco products; former smokers to minimize recidivism of nicotine dependence; and current smokers in an effort to help them cease the use of nicotine products. Where relevant [age between 50-60 years and history of smoking], we and/or the PCP will obtain an abdominal ultrasound to screen for the possibility of an abdominal aortic aneurysm and ABIs to screen for occult PAD. When completed, the results will be found in [facility]. Past Medical History: 1) Essential hypertension (SNOMED CT 24145531) 2) Allergies * (ICD-9-CM 995.3) 3) Osteoarthritis * (ICD-9-CM 715.90) 4) Tobacco dependence syndrome (SNOMED CT 00748543) 5) Mixed hyperlipidemia (SNOMED CT 281046902) 6) Erectile dysfunction (SNOMED CT 293387662) 7) COR ATHEROSCL NATV C VSL 8) Postsurgical Aortocoronary Bypass Status (ICD-9-CM V45.81) 9) CONSTIPATION, unspecified (ICD-9-CM 564.00) 10) Coronary artery disease (SNOMED CT 02375912) 11) Gynecomastia 12) Gynecomastia 13) Chronic kidney disease stage 3B 14) Essential hypertension 15) Renal osteodystrophy 16) Type 2 diabetes mellitus well controlled 17) Monoclonal gammopathy 18) Chronic kidney disease stage 3B 19) Cerebral infarction 20) Exposure to potentially hazardous substance Current Medication: Active Outpatient Medications (including Supplies): Active Outpatient Medications Status 1) AMLODIPINE BESYLATE 10MG TAB TAKE ONE TABLET BY MOUTH ONCE A ACTIVE DAY TO LOWER BLOOD PRESSURE 2) CETIRIZINE HCL 10MG TAB TAKE ONE TABLET BY MOUTH ONCE A DAY ACTIVE FOR ALLERGIES 3) FUROSEMIDE 40MG TAB TAKE ONE TABLET BY MOUTH EVERY MORNING ACTIVE Indication: FOR FLUID RETENTION (EDEMA) 4) GLIPIZIDE 5MG TAB TAKE ONE TABLET BY MOUTH TWICE A DAY TAKE ACTIVE 30 MINUTES BEFORE EATING. Indication: FOR DIABETES 5) LISINOPRIL 40MG TAB TAKE ONE TABLET BY MOUTH ONCE A DAY FOR ACTIVE HEART OR BLOOD PRESSURE 6) METOPROLOL TARTRATE 50MG TAB TAKE ONE AND ONE-HALF TABLETS ACTIVE (S) BY MOUTH TWICE A DAY . TAKE WITH OR IMMEDIATELY FOLLOWING FOOD. Indication: FOR HIGH BLOOD PRESSURE 7) OMEPRAZOLE 20MG EC CAP TAKE ONE CAPSULE BY MOUTH TWO TIMES A ACTIVE DAY BEFORE MEALS TO LOWER STOMACH ACID. TAKE 30 MINUTES PRIOR TO FOOD. 8) PRAVASTATIN NA 40MG TAB TAKE ONE TABLET BY MOUTH TUESDAY, ACTIVE TUESDAY AND TUESDAY TO LOWER CHOLESTEROL (REPORT ANY MUSCLE PAIN OR WEAKNESS) 9) SPIRONOLACTONE 25MG TAB TAKE ONE TABLET BY MOUTH ONCE A DAY ACTIVE (S) *WATER PILL* Indication: FOR HIGH BLOOD PRESSURE 10) TICAGRELOR 90MG TAB TAKE ONE TABLET BY MOUTH TWICE A DAY ACTIVE Active Non-VA Medications Status 1) Non-VA ASPIRIN 81MG EC TAB 81MG BY MOUTH ACTIVE 2) Non-VA CHOLECALCIF 25MCG (D3-1,000UNIT) TAB 1000UNIT BY ACTIVE MOUTH ONCE A DAY 12 Total Medications All medications were reviewed with patient. # Medication Reconciliation: - All cardiac medications were reconciled during the visit. - All patients with an EF </= 40% are considered for Itz inhibitors or ARBs except when contraindicated due to intolerance/allergy, hypotension, or renal disease. Documentation is found in the historical record if not repeated in this note. - All patients with an EF </= 40% are considered for beta blockers and aspirin unless contraindicated due to intolerance/allergy, hypotension, bradycardia, or bleeding risk. Documentation is found in the historical record if not repeated in this note. - Anticoagulation therapy was discussed with all patients in the setting of atrial flutter/fibrillation and held in cases where the complications of bleeding (e.g., fall risk) outweighs the risk of stroke. All patients on anticoagulation medications are counseled on bleeding risks and the warning signs of a stroke or TIA. - Except where mentioned or restricted, the PCP may renew the cardiac medications. - Other listed profile meds will continue as directed by the PCP (primary provider). Allergy: Patient has answered NKA Review of systems: per HPI Physical Exam: Temp: 97.7 F [36.5 C] (05/03/2024 14:44) Pulse: 55 (05/03/2024 14:44) B/P: 160/68 (05/03/2024 15:22) Resp: 16 (05/03/2024 14:44) Height: 70 in [177.8 cm] (02/08/2023 13:50) Weight: 226.6 lb [102.78 kg] (05/03/2024 14:44) Pain: 0 (05/03/2024 14:44) BMI: 32.6 General: Obese, no distress Eyes: sclerae anicteric ENT: oropharynx clear, mucous membrane moist, no JVD Cardiovascular: Normal heart sounds, faint ejection systolic murmur, mild edema Respiratory: Bibasal crepitations GI: soft, nontender, normal bowel sounds Musculoskeletal: normal muscle bulk and tone Integument: no rash Heme/Onc: no cervical lymphadenopathy, no ecchymosis Neurologic: alert and oriented x3, strength 5/5 bilaterally Psychiatric: appropriate mood, good judgment. Diagnostic data: 9.4 10*3/uL (11/01/23 15:47) 4.75 10*6/uL (11/01/23 15:47) HGB 14.7 g/dL 11/01/2023 15:47 43.1 % (11/01/23 15:47) PLT 166 10*3/uL 11/01/2023 15:47 Chem 7 GLUCOSE 79 mg/dL 11/01/2023 15:47 40.0 mg/dL H (11/01/23 15:47) CREATININE 1.95 H mg/dL 11/01/2023 15:47 SODIUM 140 mEq/L 11/01/2023 15:47 POTASSIUM 4.4 mEq/L 11/01/2023 15:47 103 mEq/L (11/01/23 15:47) CARBON DIOXIDE 27 mEq/L 11/01/2023 15:47 STL EGFR (within one year). CREATININE 1.95 mg/dL H (11/01/23 15:47) No TSH (2YR) EO data found Free T4 No current data available HGA1C 7.3 H % 11/01/2023 15:47 No data available for: ZZTROPONIN-I (STL-MA)D/C 08/19/15 No data available No BRAIN NATRIURETIC PEPTIDE data found AKP: 63 (11/01/23 15:47) ALB: 3.9 (11/01/23 15:47) D.BILI: 0.1 (11/01/22 20:40) GOT/AST: 15 (11/01/23 15:47) GPT/ALT: 11 (11/01/23 15:47) T.Prot: 7.2 (11/01/23 15:47) TBIL: 0.5 (11/01/23 15:47) LDL(DIRECT):____ HDL: 34 mg/dL L (11/01/23 15:47) CHOLESTEROL 187 mg/dL 11/01/2023 15:47 CALCULATED LDL 122 mg/dL 11/01/2023 15:47 Triglycerides:157 mg/dL H (11/01/23 15:47) EKG: October 2022 sinus rhythm at 55 bpm, nonspecific ST-T changes Assessment and plan: 1. CAD, history of CABG in 2004, recent PCI for non-STEMI at [facility] in June 2024, PCI of mid LAD and radial graft to diagonal with 2 drug-eluting stents as outlined above. FRANCIS to OM was patent and RCA was occluded with bridging collaterals, ejection fraction was reported as 58% by echocardiogram with mild and AR. 2. HTN blood pressure is suboptimally controlled, currently on amlodipine, Lasix, lisinopril, metoprolol and spironolactone 3. HLP on pravastatin 40 mg 4. CKD, EGFR 33 from labs in October 2023. 5. PAD, abnormal SINDHU, history of left internal carotid artery revascularization in 2022, now has right lower extremity claudication with limiting symptoms, awaiting peripheral revascularization subject to kidney function. Patient denies any active cardiac symptoms, clinically he is in sinus rhythm with basal crepitations, on Lasix 40 mg. Importance of DAPT emphasized in view of recent PCI with stents. Smoking cessation advised but patient seems to be not motivated. Plan: EKG today, TTE for EF. All questions were answered, and the patient expressed understanding of information, labs, meds and agreement with the current plan of care. Thank you for allowing me to participate in this patient's care. Please feel free to contact me if you have any questions. RTC: 6 months. Time expended on this encounter: I spent over 45 minutes on some or all of the following: chart review, history, physical examination, treatment planning, education and counseling of the patient/family/home health caregiver, placing orders, communicating with other health care providers, and documentation in the electronic health record. # HEALTH PROMOTION/HEALTH MAINTENANCE & EDUCATION DISEASE: Discussed treatment options & counseled on exacerbating factors - DISEASE: Coordinated care; discussed treatment options, & counseled on exacerbating factors. - Encouraged participation in regular exercise program 3-5 days/week. - Maximize risk factor reduction & lifestyle modifications i.e. BP <130/80 andLDL goal <70. - Discussed at length about lifestyle modifications in regard to diet, exercise, and medication compliance. - Assessed smoking habits and whether actively using tobacco products or a past history of nicotine dependence, smoking cessation strategies were reinforced. - In patients with a history of CHF, ITZ/ARB/MRA/SGLT2i use is considered and held when contraindications such as allergies, renal function preclude use. If not mentioned in the above note, these assessments are detailed in prior cardiology notes. /michael/ Camilo Koo MD Cardiology Physician Signed: 07/18/2024 11:28 [facility]
--- OUTSIDE RECORDS SUMMARY | 2024-08-28 18:22 | XMS_ITS | Continuity of Care Document ---
Author Name [facility] Organization [facility] Care Team Providers Care Dean Of Student Services Name Role Phone [facility] Unavailable Unavailable Problems Combined list of problems from Department of Defense and [facility] Affairs facilities. It does not include entries that were removed or entered in error. Problem Status Onset Date Problem Type Date of Resolution Comments Source Allergies * (ICD-9-CM 995.3) Active Condition [facility] Cerebral infarction Active Condition [facility] Chronic kidney disease stage 3B Active Condition [facility] CONSTIPATION, unspecified (ICD-9-CM 564.00) Active Condition [facility] ATHEROSCL NATV C VSL Active Condition [facility] Coronary artery disease (SNOMED CT 25602028) Active Condition Sep 29, 2011 Entered By: LETHA LEE Comment: CABG in 2004 for 3-vessel disease (LAD 60%, LCfx 90%, RC100 [facility] Erectile dysfunction (SNOMED CT 974697064) Active Condition [facility] Essential hypertension Active Condition [facility] Essential hypertension (SNOMED CT 95389157) Active Condition [facility] Exposure to potentially hazardous substance Active Condition [facility] Gynecomastia Active Condition [facility] Mixed hyperlipidemia (SNOMED CT 910985980) Active Condition [facility] Monoclonal gammopathy Active Condition [facility] Osteoarthritis * (ICD-9-CM 715.90) Active Condition Dec 14, 2002 Entered By: DEX CORBETT I Comment: R knee and hip [facility] 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 Diagnosis: ICD-10-CM Z04.9 Encounter for examination and observation for unsp reason Active Diagnosis [facility] Diagnosis: ICD-10-CM I10 Essential (primary) hypertension Active Diagnosis [facility] Diagnosis: ICD-10-CM I25.10 Athscl heart disease of [place] coronary artery w/o ang pctrs Active Diagnosis [facility] Diagnosis: ICD-10-CM R53.1 Weakness Active Diagnosis [facility] Diagnosis: ICD-10-CM Z71.0 Prsn encntr [facility] serv to consult on behalf of another person Active Diagnosis [facility] Diagnosis: ICD-10-CM I63.9 Cerebral infarction, unspecified Active Diagnosis [facility] Diagnosis: ICD-10-CM E78.2 Mixed hyperlipidemia Active Diagnosis [facility] Diagnosis: ICD-10-CM D47.2 Monoclonal gammopathy Active Diagnosis [facility] Diagnosis: ICD-10-CM I65.29 Occlusion and stenosis of unspecified carotid artery Active Diagnosis [facility] Diagnosis: ICD-10-CM R04.0 Epistaxis Active Diagnosis [facility] Medications Combined list of outpatient medications from Department of Defense and [facility] Affairs facilities.Medications provided include 1) outpatient medications from the last 15 months, and 2) patient-reported medications. Medication Details Route Status Patient Instructions Prescription Expires Prescription Number Last Dispense Date Ordering Provider Order Date Order Qty Source AMLODIPINE BESYLATE 10MG TAB TAKE ONE TABLET BY MOUTH ONCE A DAY TO LOWER BLOOD PRESSURE ORAL ACTIVE 05/04/2025 [id number] PITERA,SRE E B 2023 90 [facility] AMLODIPINE BESYLATE 10MG TAB TAKE ONE TABLET BY MOUTH ONCE A DAY TO LOWER BLOOD PRESSURE ORAL DISCONT INUED 11/01/2024 [id number] NARRA,SRE E B 2023 90 [facility] AMLODIPINE BESYLATE 10MG TAB TAKE ONE TABLET BY MOUTH ONCE A DAY TO LOWER BLOOD PRESSURE ORAL DISCONT INUED 12/26/2023 [id number] HAILEE,SRE E B 2022 90 [facility] ASPIRIN 81MG TAB,EC TAKE ONE TABLET BY MOUTH ONCE A DAY ORAL ACTIVE BLAS CORBETT I 2005 [facility] ATORVASTATI N CA 80MG TAB TAKE ONE-HALF TABLET BY MOUTH EVERY EVENING FOR HIGH CHOLESTE ROL ORAL ACTIVE 07/18/2025 [id number] HAILEE,SRE E B 2024 45 [facility] CETIRIZINE HCL 10MG TAB TAKE ONE TABLET BY MOUTH ONCE A DAY FOR ALLERGIE S ORAL ACTIVE 05/04/2025 [id number] HAILEE,SRE E B 2023 90 [facility] CETIRIZINE HCL 10MG TAB TAKE ONE TABLET BY MOUTH ONCE A DAY FOR ALLERGIE S ORAL DISCONT INUED 03/26/2025 [id number] HAILEE,SRE E B 2023 90 [facility] CETIRIZINE HCL 10MG TAB TAKE ONE TABLET BY MOUTH ONCE A DAY FOR ALLERGIE S ORAL DISCONT INUED 10/01/2024 [id number] HAILEE,SRE E B 2023 90 [facility] CETIRIZINE HCL 10MG TAB TAKE ONE TABLET BY MOUTH ONCE A DAY FOR ALLERGIE S ORAL DISCONT INUED 02/09/2024 [id number] TANI STEPHEN B 2022 90 [facility] CHLORTHALID ONE 50MG TAB TAKE ONE TABLET BY MOUTH ONCE A DAY ORAL DISCONT INUED BY STU Raymond 05/04/2025 [id number] 4 TANI STEPHEN 2023 90 [facility] CHLORTHALID ONE 50MG TAB TAKE ONE TABLET BY MOUTH ONCE A DAY ORAL DISCONT INUED 11/01/2024 [id number] 4 TANI STEPHEN 2023 90 [facility] CHLORTHALID ONE 50MG TAB TAKE ONE TABLET BY MOUTH ONCE A DAY ORAL DISCONT INUED 02/09/2024 [id number] TANI STEPHEN 2022 90 [facility] CHOLECALCIF CESAR 25MCG (1,000UNIT) TAB TAKE ONE TABLET BY MOUTH ONCE A DAY ORAL ACTIVE ROXIE BOWEN 2014 [facility] FUROSEMIDE 40MG TAB TAKE ONE TABLET BY MOUTH EVERY MORNING FOR FLUID RETENTIO N (EDEMA) ORAL ACTIVE 07/10/2025 [id number] KATH SMITH 2024 90 [facility] GABAPENTIN 300MG CAP TAKE ONE CAPSULE BY MOUTH AT BEDTIME FOR NERVE PAIN ORAL ACTIVE 08/25/2025 [id number] GERRY MCLAIN 2024 90 [facility] GLIPIZIDE 5MG TAB TAKE ONE TABLET BY MOUTH TWICE A DAY TAKE 30 MINUTES BEFORE EATING. ORAL SUSPEND ED 05/04/2025 [id number] 5 TANI STEPHEN E Tesha 2024 180 [facility] GLIPIZIDE 5MG TAB TAKE ONE TABLET BY MOUTH TWICE A DAY TAKE 30 MINUTES BEFORE EATING. ORAL DISCONT INUED 10/27/2024 [id number] TANI STEPHEN 2023 180 [facility] GLIPIZIDE 5MG TAB TAKE ONE TABLET BY MOUTH TWICE ONCE A DAY TAKE 30 MINUTES BEFORE EATING. ORAL DISCONT INUED (EDIT) 10/24/2024 [id number] 4 TANI STEPHEN E B 2023 90 [facility] GLIPIZIDE 5MG TAB TAKE ONE TABLET BY MOUTH TWICE ONCE A DAY TAKE 30 MINUTES BEFORE EATING. ORAL DISCONT INUED 10/19/2023 [id number] 4 TANI STEPHEN 2022 180 [facility] LIDOCAINE 5% PATCH APPLY 1 PATCH TO SKIN SITE ONCE A DAY FOR LOCAL ANESTHES IA APPLY PATCH AND PRESS FIRMLY FOR 10-15 SECONDS. KEEP ON FOR 12 HOURS THEN REMOVE PATCH FOR 12 HOURS. TRANSD ERMAL ACTIVE 08/25/2025 [id number] GERRY MCLAIN 2024 90 [facility] LISINOPRIL 40MG TAB TAKE ONE TABLET BY MOUTH ONCE A DAY FOR HEART OR BLOOD PRESSURE ORAL SUSPEND ED 07/18/2025 [id number] 5 TANI STEPHEN E Tesha 2024 90 [facility] LISINOPRIL 40MG TAB TAKE ONE TABLET BY MOUTH ONCE A DAY FOR HEART OR BLOOD PRESSURE ORAL DISCONT INUED 07/25/2024 [id number] TANI STEPHEN E Tesha 2023 90 [facility] LISINOPRIL 40MG TAB TAKE ONE TABLET BY MOUTH ONCE A DAY FOR HEART OR BLOOD PRESSURE ORAL DISCONT INUED 10/26/2023 [id number] TANI STEPHEN E B 2022 90 [facility] MAGNESIUM OXIDE 400MG TAB TAKE ONE TABLET BY MOUTH ONCE A DAY FOR DIETARY MAGNESIU M SUPPLEME NTATION ORAL 03/28/2024 [id number] TANI STEPHEN E B 2022 120 [facility] METOPROLOL TARTRATE 100MG TAB TAKE ONE-HALF TABLET BY MOUTH TWICE A DAY ORAL DISCONT INUED (EDIT) 11/01/2024 [id number] HAILEESRE E B 2023 90 [facility] METOPROLOL TARTRATE 100MG TAB TAKE ONE-HALF TABLET BY MOUTH TWICE A DAY ORAL DISCONT INUED 02/09/2024 [id number] HAILEESRE E B 2022 90 [facility] METOPROLOL TARTRATE 50MG TAB TAKE ONE AND ONE-HALF TABLETS BY MOUTH TWICE A DAY FOR HIGH BLOOD PRESSURE . TAKE WITH OR IMMEDIAT TING FOLLOWIN G FOOD. ORAL ACTIVE 05/27/2025 [id number] TANI STEPHEN E B 2023 270 [facility] OMEPRAZOLE 20MG CAP,EC TAKE ONE CAPSULE BY MOUTH TWO TIMES A DAY BEFORE MEALS TO LOWER STOMACH ACID. TAKE 30 MINUTES PRIOR TO FOOD. ORAL ACTIVE 03/26/2025 [id number] 5 TANI STEPHEN E B 2023 60 [facility] OMEPRAZOLE 20MG CAP,EC TAKE ONE CAPSULE BY MOUTH TWO TIMES A DAY BEFORE MEALS TO LOWER STOMACH ACID. TAKE 30 MINUTES PRIOR TO FOOD. ORAL DISCONT INUED 11/01/2024 [id number] HAILEESRE E B 2023 60 [facility] OMEPRAZOLE 20MG CAP,EC TAKE ONE CAPSULE BY MOUTH TWO TIMES A DAY BEFORE MEALS TO LOWER STOMACH ACID. TAKE 30 MINUTES PRIOR TO FOOD. ORAL DISCONT INUED 08/01/2024 [id number] 4 TANI STEPHEN E B 2023 60 [facility] OMEPRAZOLE 20MG CAP,EC TAKE ONE CAPSULE BY MOUTH TWO TIMES A DAY BEFORE MEALS TO LOWER STOMACH ACID. TAKE 30 MINUTES PRIOR TO FOOD. ORAL DISCONT INUED 04/18/2024 [id number] 4 TANI STEPHEN 2022 60 [facility] PRAVASTATIN NA 40MG TAB TAKE ONE TABLET BY MOUTH TUESDAY, AND TUESDAY TO LOWER CHOLESTE ROL (REPORT ANY MUSCLE PAIN OR WEAKNESS ) ORAL DISCONT INUED BY PROVIDE R 05/04/2025 [id number] 4 TANI STEPHEN 2023 36 [facility] PRAVASTATIN NA 40MG TAB TAKE ONE TABLET BY MOUTH TUESDAY, AND TUESDAY TO LOWER CHOLESTE ROL (REPORT ANY MUSCLE PAIN OR WEAKNESS ) ORAL DISCONT INUED 09/04/2024 [id number] 4 TANI STEPHEN 2023 36 [facility] PRAVASTATIN NA 40MG TAB TAKE ONE TABLET BY MOUTH TUESDAY, AND TUESDAY TO LOWER CHOLESTE ROL (REPORT ANY MUSCLE PAIN OR WEAKNESS ) ORAL DISCONT INUED 08/31/2023 [id number] TANI STEPHEN 2022 36 [facility] SPIRONOLACT ONE 25MG TAB TAKE ONE TABLET BY MOUTH ONCE A DAY FOR HIGH BLOOD PRESSURE *WATER PILL* ORAL ACTIVE 07/04/2025 [id number] TANI STEPHEN 2024 90 [facility] SPIRONOLACT ONE 25MG TAB TAKE ONE TABLET BY MOUTH ONCE A DAY *WATER PILL* ORAL DISCONT INUED (EDIT) 07/21/2024 [id number] TANI STEPHEN B 2023 90 [facility] SPIRONOLACT ONE 25MG TAB TAKE ONE TABLET BY MOUTH ONCE A DAY *WATER PILL* ORAL DISCONT INUED 05/12/2024 [id number] 4 TANI STEPHEN B 2023 90 [facility] SPIRONOLACT ONE 25MG TAB TAKE ONE TABLET BY MOUTH ONCE A DAY *WATER PILL* ORAL DISCONT INUED 03/11/2024 [id number] 4 TANI STEPHEN 2023 90 [facility] SPIRONOLACT ONE 25MG TAB TAKE ONE TABLET BY MOUTH ONCE A DAY *WATER PILL* ORAL DISCONT INUED 08/27/2023 [id number] 4 TANI STEPHEN 2023 90 [facility] SPIRONOLACT ONE 50MG TAB TAKE ONE TABLET BY MOUTH ONCE A DAY *WATER PILL* ORAL DISCONT INUED (EDIT) 05/04/2025 [id number] TANI STEPHEN 2023 90 [facility] TICAGRELOR 90MG TAB TAKE ONE TABLET BY MOUTH TWICE A DAY ORAL ACTIVE 07/12/2025 [id number] TANI STEPHEN 2024 60 [facility] Immunizations Combined list of available immunizations from the Department of Defense and Veterans Affairs facilities. Immunization Series Date Given Administered By Site Reaction Lot Number CVX Code Drug Editor Trade Journal Status Comments Source COVID-19 (RedCritter), MRNA, LNP-S, PF, 30 MCG/0.3 ML DOSE 2 2020 208 complet ed PFR; [id number]; 1 [facility] COVID-19 (RedCritter), MRNA, LNP-S, PF, 30 MCG/0.3 ML DOSE 1 2020 208 complet ed PFR; [id number]; 1 [facility] INFLUENZA, INJECTABLE, QUADRIVALENT, PRESERVATIVE FREE 2018 150 complet ed [facility] INFLUENZA, UNSPECIFIED FORMULATION 2017 88 complet ed [facility] INFLUENZA, INJECTABLE, QUADRIVALENT, PRESERVATIVE FREE [address] [facility] INFLUENZA, UNSPECIFIED FORMULATION [address] [facility] PNEUMOCOCCAL CONJUGATE PCV [address] [facility] INFLUENZA, UNSPECIFIED FORMULATION [address] [facility] INFLUENZA, UNSPECIFIED FORMULATION [address] [facility] INFLUENZA, UNSPECIFIED FORMULATION [address] [facility] INFLUENZA, UNSPECIFIED FORMULATION [address] [facility] TDAP [address] [facility] ZOSTER LIVE [address] [facility] INFLUENZA, UNSPECIFIED FORMULATION [address] [facility] INFLUENZA, UNSPECIFIED FORMULATION [address] [facility] INFLUENZA, UNSPECIFIED FORMULATION [address] [facility] INFLUENZA, UNSPECIFIED FORMULATION [address] [facility] PNEUMOCOCCAL, UNSPECIFIED FORMULATION [address] [facility] INFLUENZA, UNSPECIFIED FORMULATION [address] [facility] INFLUENZA (HISTORICAL) [address] [facility] Results Combined list of recent chemistry, hematology and other laboratory results from Department of Defense and Veterans Affairs, ranging from 15 months to all on record, depending upon the facility. Order Name Results Value Reference Range Date Interpretation Specimen Comments Source BASIC METABOLIC PANEL CREATININE [MASS/VOLUM E] IN SERUM OR PLASMA 2.55 mg/dL 0.70 - 1.30 08/24 H Specimen Type: PLASMA Comment: No hemolysis noted. Ordering Provider: HIGINIO MCLAIN Report Released Date/Time: Aug 24, 2024 02:51 PM Reporting Lab: [facility] [address] Performing Lab: [facility] DIVISION BASIC METABOLIC PANEL UREA NITROGEN [MASS/VOLUM E] IN SERUM OR PLASMA 45.1 mg/dL 9.0 - 25.0 08/24 H Specimen Type: PLASMA Comment: No hemolysis noted. Ordering Provider: HIGINIO MCLAIN Report Released Date/Time: Aug 24, 2024 02:51 PM Reporting Lab: [facility] [place] [address] Performing Lab: [facility] BASIC METABOLIC PANEL GLUCOSE [MASS/VOLUM E] IN SERUM OR PLASMA 274 mg/dL 72 - 99 08/24 H Specimen Type: PLASMA Comment: No hemolysis noted. Ordering Provider: HIGINIO MCLAIN Report Released Date/Time: Aug 24, 2024 02:51 PM Reporting Lab: [facility] [place] [address] Performing Lab: [facility] BASIC METABOLIC PANEL SODIUM [MOLES/VOLU ME] IN SERUM OR PLASMA 140 meq/L 136 - 145 08/24 Specimen Type: PLASMA Comment: No hemolysis noted. Ordering Provider: HIGINIO MCLAIN Report Released Date/Time: Aug 24, 2024 02:51 PM Reporting Lab: [facility] [place] [address] Performing Lab: [facility] BASIC METABOLIC PANEL POTASSIUM [MOLES/VOLU ME] IN SERUM OR PLASMA 4.4 meq/L 3.5 - 5.0 08/24 Specimen Type: PLASMA Comment: No hemolysis noted. Ordering Provider: HIGINIO MCLAIN Report Released Date/Time: Aug 24, 2024 02:51 PM Reporting Lab: [facility] [place] [address] Performing Lab: [facility] DIVISION BASIC METABOLIC PANEL CHLORIDE [MOLES/VOLU ME] IN SERUM OR PLASMA 100 meq/L 98 - 107 08/24 Specimen Type: PLASMA Comment: No hemolysis noted. Ordering Provider: HIGINIO MCLAIN Report Released Date/Time: Aug 24, 2024 02:51 PM Reporting Lab: [facility] [place] [address] Performing Lab: [facility] BASIC METABOLIC PANEL CARBON DIOXIDE, TOTAL [MOLES/VOLU ME] IN SERUM OR PLASMA 27 meq/L 22 - 31 08/24 Specimen Type: PLASMA Comment: No hemolysis noted. Ordering Provider: HIGINIO MCLAIN Report Released Date/Time: Aug 24, 2024 02:51 PM Reporting Lab: [facility] [place] [address] Performing Lab: [facility] BASIC METABOLIC PANEL CALCIUM [MASS/VOLUM E] IN SERUM OR PLASMA 10.1 mg/dL 8.4 - 10.4 08/24 Specimen Type: PLASMA Comment: No hemolysis noted. Ordering Provider: HIGINIO MCLAIN Report Released Date/Time: Aug 24, 2024 02:51 PM Reporting Lab: [facility] [place] [address] Performing Lab: [facility] BASIC METABOLIC PANEL GLOMERULAR FILTRATION RATE/1.73 SQ M.PREDICTED [VOLUME RATE/AREA] IN SERUM, PLASMA OR BLOOD BY CREATININE- BASED FORMULA (CKD-EPI 2020) 24.13 60 08/24 Specimen Type: PLASMA Comment: No hemolysis noted. Ordering Provider: HIGINIO MCLAIN Report Released Date/Time: Aug 24, 2024 02:51 PM Reporting Lab: [facility] [place] [address] Performing Lab: [facility] HGA1C HEMOGLOBIN A1C/HEMOGLO BIN.TOTAL IN BLOOD 8.4 4.0 - 6.0 08/24 H Specimen Type: BLOOD No comment entered. Ordering Provider: HIGINIO MCLAIN Report Released Date/Time: Aug 24, 2024 02:51 PM Reporting Lab: [facility] [place] [address] Performing Lab: [facility] [place] [id number] CBC LEUKOCYTES [#/VOLUME] IN BLOOD BY AUTOMATED COUNT 8.4 10*3/u L 3.6 - 11.2 07/20 Specimen Type: BLOOD No comment entered. Ordering Provider: WENCESLAO MOLINA Report Released Date/Time: Jul 09, 2024 02:40 PM Reporting Lab: [facility] [place] [place] [address] Performing Lab: [facility] 5 [facility] [place] [address] [facility] CBC ERYTHROCYTE S [#/VOLUME] IN BLOOD BY AUTOMATED COUNT 3.84 10*6/u L 4.10 - 5.70 07/20 L Specimen Type: BLOOD No comment entered. Ordering Provider: WENCESLAO MOLINA Report Released Date/Time: Jul 09, 2024 02:40 PM Reporting Lab: [facility] 5 [facility] [address] Performing Lab: [address] [address] [facility] CBC HEMOGLOBIN [MASS/VOLUM E] IN BLOOD 12.0 g/dL 13.1 - 16.8 07/20 L Specimen Type: BLOOD No comment entered. Ordering Provider: WENCESLAO MOLINA Report Released Date/Time: Jul 09, 2024 02:40 PM Reporting Lab: [address] [address] Performing Lab: [address] [address] [facility] CBC HEMATOCRIT [VOLUME FRACTION] OF BLOOD 35.6 38.2 - 48.4 07/20 L Specimen Type: BLOOD No comment entered. Ordering Provider: WENCESLAO MOLINA Report Released Date/Time: Jul 09, 2024 02:40 PM Reporting Lab: [address] [address] Performing Lab: [address] [address] [facility] CBC MCV [ENTITIC VOLUME] BY AUTOMATED COUNT 92.7 fL 80.0 - 100.0 07/20 Specimen Type: BLOOD No comment entered. Ordering Provider: WENCELSAO MOLINA Report Released Date/Time: Jul 09, 2024 02:40 PM Reporting Lab: [address] [address] Performing Lab: [address] [address] [facility] CBC MCH [ENTITIC MASS] BY AUTOMATED COUNT 31.3 pg 27.0 - 34.0 07/20 Specimen Type: BLOOD No comment entered. Ordering Provider: WENCESLAO MOLINA Report Released Date/Time: Jul 09, 2024 02:40 PM Reporting Lab: [place] [address] [facility] [place] [address] Performing Lab: [address] [address] [facility] CBC MCHC [MASS/VOLUM E] BY AUTOMATED COUNT 33.7 g/dL 33.0 - 36.0 07/20 Specimen Type: BLOOD No comment entered. Ordering Provider: WENCESLAO MOLINA Report Released Date/Time: Jul 09, 2024 02:40 PM Reporting Lab: [address] [address] Performing Lab: [address] [address] [facility] CBC PLATELETS [#/VOLUME] IN BLOOD BY AUTOMATED COUNT 156 10*3/u L 150 - 400 07/20 Specimen Type: BLOOD No comment entered. Ordering Provider: WENCESLAO MOLINA Report Released Date/Time: Jul 09, 2024 02:40 PM Reporting Lab: [place] [address] [facility] [place] [address] Performing Lab: [address] [address] [facility] CBC PLATELET MEAN VOLUME [ENTITIC VOLUME] IN BLOOD BY AUTOMATED COUNT 11.3 fL 7.5 - 11.2 07/20 H Specimen Type: BLOOD No comment entered. Ordering Provider: WENCESLAO MOLINA Report Released Date/Time: Jul 09, 2024 02:40 PM Reporting Lab: [address] [address] Performing Lab: [address] [address] [facility] CBC ERYTHROCYTE DISTRIBUTIO N WIDTH [RATIO] BY AUTOMATED COUNT 13.4 11.8 - 15.1 07/20 Specimen Type: BLOOD No comment entered. Ordering Provider: WENCESLAO MOLINA Report Released Date/Time: Jul 09, 2024 02:40 PM Reporting Lab: [facility] [address] [facility] [address] Performing Lab: [facility] [address] [facility] [place] [address] [facility] CBC LYMPHOCYTES /100 LEUKOCYTES IN BLOOD BY AUTOMATED COUNT 21 07/20 Specimen Type: BLOOD No comment entered. Ordering Provider: WENCESLAO MOLINA Report Released Date/Time: Jul 09, 2024 02:40 PM Reporting Lab: [facility] [address] [facility] [address] Performing Lab: [place] [address] [facility] [place] [address] [facility] CBC MONOCYTES/1 00 LEUKOCYTES IN BLOOD BY AUTOMATED COUNT 10 07/20 Specimen Type: BLOOD No comment entered. Ordering Provider: WENCESLAO MOLINA Report Released Date/Time: Jul 09, 2024 02:40 PM Reporting Lab: [facility] [address] [facility] [place] [address] Performing Lab: [place] [address] [facility] [place] [address] [facility] CBC NEUTROPHILS /100 LEUKOCYTES IN BLOOD BY AUTOMATED COUNT 67 07/20 Specimen Type: BLOOD No comment entered. Ordering Provider: WENCSELAO MOLINA Report Released Date/Time: Jul 09, 2024 02:40 PM Reporting Lab: [facility] [address] [facility] [place] [address] Performing Lab: [facility] [address] [facility] [place] [address] [facility] EOSINOPHILS /100 LEUKOCYTES IN BLOOD BY AUTOMATED COUNT 2 07/20 Specimen Type: BLOOD No comment entered. Ordering Provider: WENCESLAO MOLINA Report Released Date/Time: Jul 09, 2024 02:40 PM Reporting Lab: [facility] [place] [address] Performing Lab: [place] [address] [facility] [place] [address] [facility] BASOPHILS/1 00 LEUKOCYTES IN BLOOD BY AUTOMATED COUNT 1 07/20 Specimen Type: BLOOD No comment entered. Ordering Provider: WENCESLAO MOLINA Report Released Date/Time: Jul 09, 2024 02:40 PM Reporting Lab: [address] [address] Performing Lab: [address] [address] [facility] LYMPHOCYTES [#/VOLUME] IN BLOOD BY AUTOMATED COUNT 1.73 10*3/u L 0.77 - 4.50 07/20 Specimen Type: BLOOD No comment entered. Ordering Provider: WENCESLAO MOLINA Report Released Date/Time: Jul 09, 2024 02:40 PM Reporting Lab: [place] [address] [facility] [place] [address] Performing Lab: [place] [address] [facility] [place] [address] [facility] MONOCYTES [#/VOLUME] IN BLOOD BY AUTOMATED COUNT 0.81 10*3/u L 0.19 - 0.80 07/20 H Specimen Type: BLOOD No comment entered. Ordering Provider: WENCESLAO MOLINA Report Released Date/Time: Jul 09, 2024 02:40 PM Reporting Lab: [place] [address] [facility] [place] [address] Performing Lab: [address] [address] [facility] CBC NEUTROPHILS [#/VOLUME] IN BLOOD BY AUTOMATED COUNT 5.63 10*3/u L 2.10 - 8.00 07/20 Specimen Type: BLOOD No comment entered. Ordering Provider: WENCESLAO MOLINA Report Released Date/Time: Jul 09, 2024 02:40 PM Reporting Lab: [facility] [place] [address] [address] Performing Lab: [address] [phone] [place] [address] CBC EOSINOPHILS [#/VOLUME] IN BLOOD BY AUTOMATED COUNT 0.15 10*3/u L 0.00 - 0.60 07/20 Specimen Type: BLOOD No comment entered. Ordering Provider: WENCESLAO MOLINA Report Released Date/Time: Jul 09, 2024 02:40 PM Reporting Lab: [place] [phone] Performing Lab: [place] [phone] CBC BASOPHILS [#/VOLUME] IN BLOOD BY AUTOMATED COUNT 0.04 10*3/u L 0.00 - 0.20 07/20 Specimen Type: BLOOD No comment entered. Ordering Provider: WENCESLAO MOLINA Report Released Date/Time: Jul 09, 2024 02:40 PM Reporting Lab: [address] [address] Performing Lab: [address] [phone] [place] [address] PTH, INTACT (STL) PARATHYRIN. INTACT [MASS/VOLUM E] IN SERUM OR PLASMA 89.50 pg/mL 8.7 - 77.7 07/20 H Specimen Type: SERUM No comment entered. Ordering Provider: WECNESLAO MOLINA Report Released Date/Time: Jul 09, 2024 02:40 PM Reporting Lab: [address] [address] Performing Lab: [address] [address] [facility] RENAL PANEL CREATININE [MASS/VOLUM E] IN SERUM OR PLASMA 3.88 mg/dL 0.7 - 1.3 07/20 H Specimen Type: PLASMA Comment: No hemolysis noted. Ordering Provider: WENCESLAO MOLINA Report Released Date/Time: Jul 09, 2024 02:40 PM Reporting Lab: [facility] [address] [facility] [address] Performing Lab: [facility] [address] [facility] [address] [facility] RENAL PANEL UREA NITROGEN [MASS/VOLUM E] IN SERUM OR PLASMA 53.0 mg/dL 9.0 - 25.0 07/20 H Specimen Type: PLASMA Comment: No hemolysis noted. Ordering Provider: WENCSELAO MOLINA Report Released Date/Time: Jul 09, 2024 02:40 PM Reporting Lab: [address] [address] Performing Lab: [address] [address] [facility] RENAL PANEL GLUCOSE [MASS/VOLUM E] IN SERUM OR PLASMA 220 mg/dL 72 - 99 07/20 H Specimen Type: PLASMA Comment: No hemolysis noted. Ordering Provider: WENCESLAO MOLINA Report Released Date/Time: Jul 09, 2024 02:40 PM Reporting Lab: [address] [address] Performing Lab: [address] [address] [facility] RENAL PANEL SODIUM [MOLES/VOLU ME] IN SERUM OR PLASMA 136 meq/L 136 - 145 07/20 Specimen Type: PLASMA Comment: No hemolysis noted. Ordering Provider: WENCESLAO MOLINA Report Released Date/Time: Jul 09, 2024 02:40 PM Reporting Lab: [facility] [address] [place] [phone] Performing Lab: [facility] [address] [place] [phone] [facility] RENAL PANEL POTASSIUM [MOLES/VOLU ME] IN SERUM OR PLASMA 4.3 meq/L 3.5 - 5 07/20 Specimen Type: PLASMA Comment: No hemolysis noted. Ordering Provider: WENCESLAO MOLINA Report Released Date/Time: Jul 09, 2024 02:40 PM Reporting Lab: [facility] [address] [facility] [place] [address] Performing Lab: [facility] [address] [place] [address] [facility] RENAL PANEL CHLORIDE [MOLES/VOLU ME] IN SERUM OR PLASMA 98 meq/L 98 - 107 07/20 Specimen Type: PLASMA Comment: No hemolysis noted. Ordering Provider: WENCESLAO MOLINA Report Released Date/Time: Jul 09, 2024 02:40 PM Reporting Lab: [place] [address] [facility] [place] [address] Performing Lab: [place] [address] [facility] [place] [address] [facility] RENAL PANEL CARBON DIOXIDE, TOTAL [MOLES/VOLU ME] IN SERUM OR PLASMA 27 meq/L 22 - 31 07/20 Specimen Type: PLASMA Comment: No hemolysis noted. Ordering Provider: WENCESLAO MOLINA Report Released Date/Time: Jul 09, 2024 02:40 PM Reporting Lab: [place] [address] [facility] [place] [address] Performing Lab: [facility] [address] [place] [phone] [facility] RENAL PANEL CALCIUM [MASS/VOLUM E] IN SERUM OR PLASMA 9.8 mg/dL 8.4 - 10.4 07/20 Specimen Type: PLASMA Comment: No hemolysis noted. Ordering Provider: WENCESLAO MOLINA Report Released Date/Time: Jul 09, 2024 02:40 PM Reporting Lab: [place] [address] [facility] [place] [address] Performing Lab: [facility] [address] [place] [address] [facility] RENAL PANEL PHOSPHATE [MASS/VOLUM E] IN SERUM OR PLASMA 3.3 mg/dL 2.3 - 4.7 07/20 Specimen Type: PLASMA Comment: No hemolysis noted. Ordering Provider: WENCESLAO MOLINA Report Released Date/Time: Jul 09, 2024 02:40 PM Reporting Lab: [place] [address] [facility] [place] [address] Performing Lab: [place] [address] [facility] [place] [phone] RENAL PANEL ALBUMIN [MASS/VOLUM E] IN SERUM OR PLASMA 3.7 g/dL 3.4 - 5 07/20 Specimen Type: PLASMA Comment: No hemolysis noted. Ordering Provider: WENCESLAO MOLINA Report Released Date/Time: Jul 09, 2024 02:40 PM Reporting Lab: [place] [address] [facility] [place] [address] Performing Lab: [place] [address] [facility] [place] [phone] [place] [address] RENAL PANEL GLOMERULAR FILTRATION RATE/1.73 SQ M.PREDICTED [VOLUME RATE/AREA] IN SERUM, PLASMA OR BLOOD BY CREATININE- BASED FORMULA (CKD-EPI 2020) 14.6 60 07/20 LL Specimen Type: PLASMA Comment: No hemolysis noted. Ordering Provider: WENCESLAO MOLINA Report Released Date/Time: Jul 09, 2024 02:40 PM Reporting Lab: [place] [address] [facility] [place] [address] Performing Lab: [place] [address] [facility] [place] [phone] [place] [address] VITAMIN D, 25-HYDROXY 25-HYDROXYV ITAMIN D3 [MASS/VOLUM E] IN SERUM OR PLASMA 37.1 ng/mL 30 - 96 07/20 Specimen Type: SERUM No comment entered. Ordering Provider: WENCESLAO MOLINA Report Released Date/Time: Jul 09, 2024 02:40 PM Reporting Lab: [facility] [address] [facility] [address] Performing Lab: [facility] [address] [facility] [place] [address] [facility] FERRITIN FERRITIN [MASS/VOLUM E] IN SERUM OR PLASMA 400.00 ng/mL 22 - 275 07/20 H Specimen Type: SERUM No comment entered. Ordering Provider: WENCESLAO MOLINA Report Released Date/Time: Jul 20, 2024 12:55 PM Reporting Lab: [place] [address] [facility] [place] [address] Performing Lab: [address] [address] [facility] IRON/TIBC PROFILE IRON BINDING CAPACITY [MASS/VOLUM E] IN SERUM OR PLASMA 308 ug/dL 250 - 450 07/20 Specimen Type: SERUM No comment entered. Ordering Provider: WENCESLAO MOLINA Report Released Date/Time: Jul 20, 2024 12:55 PM Reporting Lab: [place] [address] [facility] [place] [address] Performing Lab: [place] [address] [facility] [place] [address] [facility] IRON/TIBC PROFILE TRANSFERRIN [MASS/VOLUM E] IN SERUM OR PLASMA 246 mg/dL 163 - 344 07/20 Specimen Type: SERUM No comment entered. Ordering Provider: WENCESLAO MOLINA Report Released Date/Time: Jul 20, 2024 12:55 PM Reporting Lab: [place] [address] [facility] [place] [address] Performing Lab: [address] [address] [facility] IRON/TIBC PROFILE IRON SATURATION [MASS FRACTION] IN SERUM OR PLASMA 55 20 - 50 07/20 H Specimen Type: SERUM No comment entered. Ordering Provider: WENCESLAO MOLINA Report Released Date/Time: Jul 20, 2024 12:55 PM Reporting Lab: [facility] [address] [facility] [address] Performing Lab: [place] [address] [facility] [place] [address] [facility] IRON/TIBC PROFILE IRON [MASS/VOLUM E] IN SERUM OR PLASMA 169 ug/dL 65 - 175 07/20 Specimen Type: SERUM No comment entered. Ordering Provider: WENCESLAO MOLINA Report Released Date/Time: Jul 20, 2024 12:55 PM Reporting Lab: [place] [address] [address] [facility] [address] Performing Lab: [place] [address] [facility] [place] [phone] [place] [address] MAGNESIUM MAGNESIUM [MASS/VOLUM E] IN SERUM OR PLASMA 1.9 mg/dL 1.6 - 2.6 07/20 Specimen Type: PLASMA No comment entered. Ordering Provider: WENCESLAO MOLINA Report Released Date/Time: Jul 20, 2024 12:56 PM Reporting Lab: [place] [address] [facility] [place] [address] Performing Lab: [place] [address] [facility] [place] [phone] [place] [address] URINALYSIS (STL-PB) COLOR OF URINE Light- Yellow 10/31 Specimen Type: URINE No comment entered. Ordering Provider: CARMELLA STEPHEN Report Released Date/Time: Nov 01, 2023 03:40 PM Reporting Lab: [facility] [facility] [address] Performing Lab: [facility] [facility] [phone] [place] [address] DIVISION URINALYSIS (STL-PB) BILIRUBIN.T OTAL [PRESENCE] IN URINE BY TEST STRIP Negati vemg/d L 10/31 Specimen Type: URINE No comment entered. Ordering Provider: CARMELLA STEPHEN Report Released Date/Time: Nov 01, 2023 03:40 PM Reporting Lab: [facility]1 [place] [address] Performing Lab: [facility] [facility]ISION URINALYSIS (STL-PB) PH OF URINE BY TEST STRIP 6.5 5.0 - 8.0 10/31 Specimen Type: URINE No comment entered. Ordering Provider: CARMELLA STEPHEN Report Released Date/Time: Nov 01, 2023 03:40 PM Reporting Lab: [facility] [place] [address] Performing Lab: [facility] DIVISION URINALYSIS (STL-PB) LEUKOCYTES [#/AREA] IN URINE SEDIMENT BY MICROSCOPY HIGH POWER FIELD 1 /[HPF] 0 - 5 10/31 Specimen Type: URINE No comment entered. Ordering Provider: CARMELLA STEPHEN Report Released Date/Time: Nov 01, 2023 03:40 PM Reporting Lab: [facility] [place] [address] Performing Lab: [facility] DIVISION URINALYSIS (STL-PB) ERYTHROCYTE S [#/VOLUME] IN URINE SEDIMENT BY MICROSCOPY HIGH POWER FIELD 2 /[HPF] 0 - 5 10/31 Specimen Type: URINE No comment entered. Ordering Provider: CARMELLA STEPHEN Report Released Date/Time: Nov 01, 2023 03:40 PM Reporting Lab: [facility] [place] [address] Performing Lab: [facility] [facility] URINALYSIS (STL-PB) APPEARANCE OF URINE Clear 10/31 Specimen Type: URINE No comment entered. Ordering Provider: CARMELLA STEPHEN Report Released Date/Time: Nov 01, 2023 03:40 PM Reporting Lab: [facility] [place] [address] Performing Lab: [facility] DIVISION URINALYSIS (STL-PB) NITRITE [PRESENCE] IN URINE BY TEST STRIP Negati vemg/d L 10/31 Specimen Type: URINE No comment entered. Ordering Provider: CARMELLA STEPHEN Report Released Date/Time: Nov 01, 2023 03:40 PM Reporting Lab: [facility] [place] [address] Performing Lab: [facility] DIVISION URINALYSIS (STL-PB) GLUCOSE [MASS/VOLUM E] IN URINE BY TEST STRIP Normal mg/dL 10/31 Specimen Type: URINE No comment entered. Ordering Provider: CARMELLA STEPHEN Report Released Date/Time: Nov 01, 2023 03:40 PM Reporting Lab: [facility] [place] [address] Performing Lab: [facility] DIVISION URINALYSIS (STL-PB) PROTEIN [MASS/VOLUM E] IN URINE BY TEST STRIP 300 mg/dL - 20 10/31 H Specimen Type: URINE No comment entered. Ordering Provider: CARMELLA STEPHEN Report Released Date/Time: Nov 01, 2023 03:40 PM Reporting Lab: [facility] [place] [address] Performing Lab: [facility] DIVISION URINALYSIS (STL-PB) URN.UROBILI NOGEN Normal mg/dL 10/31 Specimen Type: URINE No comment entered. Ordering Provider: CARMELLA STEPHEN Report Released Date/Time: Nov 01, 2023 03:40 PM Reporting Lab: [facility] [place] [address] Performing Lab: [facility] DIVISION URINALYSIS (STL-PB) HEMOGLOBIN [MASS/VOLUM E] IN URINE BY TEST STRIP Negati vemg/d L 10/31 Specimen Type: URINE No comment entered. Ordering Provider: CARMELLA STEPHEN Report Released Date/Time: Nov 01, 2023 03:40 PM Reporting Lab: [facility]1 [place] [address] Performing Lab: [facility] DIVISION URINALYSIS (STL-PB) KETONES [MASS/VOLUM E] IN URINE BY TEST STRIP Negati vemg/d L 10/31 Specimen Type: URINE No comment entered. Ordering Provider: CARMELLA STEPHEN Report Released Date/Time: Nov 01, 2023 03:40 PM Reporting Lab: [facility]1 [place] [address] Performing Lab: [facility] DIVISION URINALYSIS (STL-PB) URN.LEUK.ES T. Negati vemg/d L 10/31 Specimen Type: URINE No comment entered. Ordering Provider: CARMELLA STEPHEN Report Released Date/Time: Nov 01, 2023 03:40 PM Reporting Lab: [facility]1 [place] [address] Performing Lab: [facility] DIVISION URINALYSIS (STL-PB) SPECIFIC GRAVITY OF URINE 1.014 1.005 - 1.029 10/31 Specimen Type: URINE No comment entered. Ordering Provider: CARMELLA STEPHEN Report Released Date/Time: Nov 01, 2023 03:40 PM Reporting Lab: [facility]1 [facility] [address] Performing Lab: [facility] #1 [facility] [address] [facility] Vital Signs Combined list of inpatient and outpatient Vital Signs from Department of Defense and Veterans Affairs, ranging from 12 months to all on record, depending upon the facility. Vital Sign Value Date Comments Source SYSTOLIC BLOOD PRESSURE 161 08/24/2024 14:14:01 [facility] DIASTOLIC BLOOD PRESSURE 71 08/24/2024 14:14:01 [facility] PULSE OXIMETRY 99 08/24/2024 14:14:01 [facility] WEIGHT 213.2 08/24/2024 14:14:01 [facility] BMI 31 kg/m2 08/24/2024 14:14:01 [facility] HEIGHT 70 08/24/2024 14:14:01 [facility] TEMPERATURE 98.2 08/24/2024 14:14:01 [facility] PULSE 66 08/24/2024 14:14:01 [facility] RESPIRATION 20 08/24/2024 14:14:01 [facility] SYSTOLIC BLOOD PRESSURE 134 07/20/2024 12:07:47 [facility] DIASTOLIC BLOOD PRESSURE 67 07/20/2024 12:07:47 [facility] PULSE OXIMETRY 97 07/20/2024 12:07:47 [facility] WEIGHT 213.2 07/20/2024 12:07:47 [facility] BMI 31 kg/m2 07/20/2024 12:07:47 [facility] PAIN 0 07/20/2024 12:07:47 [facility] HEIGHT 70 07/20/2024 12:07:47 [facility] TEMPERATURE 97.5 07/20/2024 12:07:47 [facility] PULSE 71 07/20/2024 12:07:47 [facility] RESPIRATION 18 07/20/2024 12:07:47 [facility] SYSTOLIC BLOOD PRESSURE 146 07/18/2024 10:40:25 [facility] DIASTOLIC BLOOD PRESSURE 61 07/18/2024 10:40:25 [facility] PULSE OXIMETRY 98 07/18/2024 10:40:25 [facility] WEIGHT 214.7 07/18/2024 10:40:25 [facility] BMI 31 kg/m2 07/18/2024 10:40:25 [facility] PAIN 0 07/18/2024 10:40:25 [facility] TEMPERATURE 97.6 07/18/2024 10:40:25 [facility] PULSE 63 07/18/2024 10:40:25 [facility] RESPIRATION 18 07/18/2024 10:40:25 [facility] SYSTOLIC BLOOD PRESSURE 124 07/17/2024 10:32:14 [facility] DIASTOLIC BLOOD PRESSURE 61 07/17/2024 10:32:14 [facility] PULSE OXIMETRY 97 07/17/2024 10:32:14 [facility] WEIGHT 213 07/17/2024 10:32:14 [facility] BMI 31 kg/m2 07/17/2024 10:32:14 [facility] PAIN 0 07/17/2024 10:32:14 [facility] TEMPERATURE 97.4 07/17/2024 10:32:14 [facility] PULSE 20 07/17/2024 10:32:14 [facility] RESPIRATION 14 07/17/2024 10:32:14 [facility] SYSTOLIC BLOOD PRESSURE 197 05/03/2024 14:44:42 [facility] DIASTOLIC BLOOD PRESSURE 69 05/03/2024 14:44:42 [facility] PULSE OXIMETRY 97 05/03/2024 14:44:42 [facility] WEIGHT 226.6 05/03/2024 14:44:42 [facility] BMI 33 kg/m2 05/03/2024 14:44:42 [facility] PAIN 0 05/03/2024 14:44:42 [facility] TEMPERATURE 97.7 05/03/2024 14:44:42 [facility] PULSE 55 05/03/2024 14:44:42 [facility] RESPIRATION 16 05/03/2024 14:44:42 [facility] Encounters Combined list of: 1) Encounters from Department of [facility] Affairs facilities going backup to the last 18 months, not all [place] inpatient encounters are included; 2) Encounters from the Department of [facility] facilities going backup to 280 months. Location Location Details Encounter Type Encounter Number Reason For Visit Attending Provider ADM Date DC Date Status Disposition Source [facility] Outpatient Encounter [id number] 03/14 [facility] Outpatient Encounter [id number] Diagnos is: ICD-10- CM R04.0 Epistax is CARMELLA STEPHEN 03/15 [facility] Outpatient Encounter [id number] CARMELLA STEPHEN 03/15 [facility] Outpatient Encounter [id number] Diagnos is: ICD-10- CM I63.9 Cerebra l infarct ion, unspeci fied LICO GARCIA YA 03/15 [facility] Outpatient Encounter [id number] Diagnos is: ICD-10- CM I65.29 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 JAMIL PÉREZ AD M A 03/17 [facility] Outpatient Encounter [id number] MITRA ASHRAF M 03/18 [facility] Outpatient Encounter [id number] MATTHEW RAMIREZ 03/23 [facility] Outpatient Encounter [id number] 04/26 [facility] Outpatient Encounter [id number] 06/01 [facility] Outpatient Encounter [id number] 06/23 [facility] Outpatient Encounter [id number] [facility] OFFICE O/P EST HI 40 MIN [id number] Diagnos is: ICD-10- CM I10 Essenti al (primar y) hyperte nsion CARMELLA STEPHEN B 10/31 [facility] Outpatient Encounter [id number] 11/01 [facility] Outpatient Encounter [id number] MATTHEW RAMIREZ 11/06 [facility] MYOCRD STRAIN IMG SPCKL TRCK [id number] Diagnos is: ICD-10- CM 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 OU,JIAFU 11/07 [facility] Outpatient Encounter [id number] 11/10 [facility] Outpatient Encounter [id number] MATTHEW RAMIREZ 11/10 [facility] Outpatient Encounter [id number] Diagnos is: ICD-10- CM 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 [facility] LSAMMA 12/29 [facility] Outpatient Encounter [id number] ARTI HERNANDEZ 05/01 [facility] OFFICE O/P EST HI 40 MIN [id number] Diagnos is: ICD-10- CM E78.2 Mixed hyperli pidemia CARMELLA STEPHEN 05/03 [facility] Outpatient Encounter [id number] 05/04 [facility] Outpatient Encounter [id number] VELVET PERALES 05/04 [facility] HC PRO PHONE CALL 21-30 MIN [id number] Diagnos is: ICD-10- CM I10 Essenti al (primar y) VELVET Hamilton 05/04 [facility] HC PRO PHONE CALL 21-30 MIN [id number] Diagnos is: ICD-10- CM I10 Essenti sinai (primar y) VELVET Hamilton 05/04 [facility] HC PRO PHONE CALL 21-30 MIN [id number] Diagnos is: ICD-10- CM I10 Essenti al (primar y) VELVET Hamilton 05/04 [facility] Outpatient Encounter [id number] VELVET PERALES 05/04 [facility] HC PRO PHONE CALL 11-20 MIN [id number] Diagnos is: ICD-10- CM I10 Essenti al (primar y) VELVET Hamilton 05/07 [facility] CASE MANAGEMENT [id number] Diagnos is: ICD-10- CM I63.9 Cerebra l infarct ion, unspeci fied KIRBY BASS 05/08 [facility] Outpatient Encounter [id number] KIRBY BASS 05/08 [facility] Outpatient Encounter [id number] 05/10 [facility] Outpatient Encounter [id number] 05/17 [facility] Outpatient Encounter [id number] 05/21 [facility] Outpatient Encounter [id number] [id number] 05/21 [facility] HC PRO PHONE CALL 11-20 MIN [id number] [id number] Diagnos is: ICD-10- CM I10 Essenti al (primar y) VELVET Hamilton 05/22 [facility] OFFICE O/P EST LOW 20 MIN [id number] [id number] Diagnos is: ICD-10- CM I10 Essenti al (primar y) VELVET Hamilton 05/23 [facility] Outpatient Encounter [id number] 05/25 [facility] OFFICE O/P EST MOD 30 MIN [id number] [id number] Diagnos is: ICD-10- CM I10 Essenti al (primar y) VELVET Hamilton 05/25 [facility] HC PRO PHONE CALL 21-30 MIN [id number] [id number] Diagnos is: ICD-10- CM I10 Essenti al (primar y) hyperte VELVET Lopez 05/28 [facility] Outpatient Encounter [id number] [id number] Diagnos is: ICD-10- CM I10 Essenti al (primar y) hyperte JOEY Alberto THER 05/29 [facility] OFFICE O/P EST LOW 20 MIN [id number] Diagnos is: ICD-10- CM I10 Essenti al (primar y) hyperte VELVET Lopez E 06/01 [facility] OFFICE O/P EST MOD 30 MIN 83010-7.65 [id number] Diagnos is: ICD-10- CM I10 Essenti al (primar y) hyperte VELVET Lopez E 06/05 [facility] Outpatient Encounter [id number] [id number] 06/05 [facility] Outpatient Encounter [id number] [id number] YOVANA COOLEY 06/20 [facility] Outpatient Encounter [id number] [id number] ULYSSES US 06/20 [facility] Outpatient Encounter [id number] [id number] 06/21 [facility] Outpatient Encounter [id number] [id number] 06/22 [facility] Outpatient Encounter [id number] [id number] 06/29 [facility] Outpatient Encounter [id number] [id number] 06/29 [facility] Outpatient Encounter [id number] [id number] MATTHEW RAMIREZ 07/02 [facility] HLTH BHV ASSMT/REAS SESSMENT [id number] [id number] Diagnos is: ICD-10- CM Z71.0 Prsn encntr [place] [facility] serv to consult on behalf of another person Lexii LOPEZ NOARABELLA ESTELA 07/03 [facility] Outpatient Encounter [id number] 07/05 [facility] PH1 ASSMT&MGMT NQHP 11-20 [id number] Diagnos is: ICD-10- CM R53.1 VONDA Camargo EW H 07/06 [facility] Outpatient Encounter [id number] MATTHEW RAMIREZ M 07/06 [facility] Outpatient Encounter [id number] 07/06 [facility] Outpatient Encounter [id number] 07/09 [facility] OFFICE O/P EST MOD 30 MIN [id number] Diagnos is: ICD-10- CM I10 Essenti al (primar y) hyperte nsion GERONIMO MOLINAATOYI N 07/09 [facility] Outpatient Encounter [id number] 07/10 [facility] NQHP OL DIG ASSMT&MGMT 5-10 [id number] Diagnos is: ICD-10- CM 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 [place] CHAN A 07/11 [facility] Outpatient Encounter [id number] 07/17 [facility] OFFICE O/P EST HI 40 MIN [id number] Diagnos is: ICD-10- CM I10 Essenti al (primar y) hyperte nsion CARMELLA STEPHEN B 07/17 [facility] OFFICE O/P NEW MOD 45 MIN [id number] Diagnos is: ICD-10- CM 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 CAMILO KOO 07/18 [facility] Outpatient Encounter [id number] 07/18 [facility] Outpatient Encounter [id number] 07/19 [facility] OFFICE O/P EST MOD 30 MIN [id number] Diagnos is: ICD-10- CM I10 Essenti al (primar y) hyperte nsion ADEGBOYEGA ,OLUWATOYI N 07/20 [facility] OFFICE O/P EST MOD 30 MIN [id number] Diagnos is: ICD-10- CM I10 Denise rawls (primar y) hypertVELVET Robbins E 07/24 [facility] Outpatient Encounter [id number] 07/25 [facility] Outpatient Encounter [id number] 07/27 [facility] Outpatient Encounter [id number] 07/28 [facility] Outpatient Encounter [id number] 07/30 [facility] Outpatient Encounter [id number] 07/31 [facility] Outpatient Encounter [id number] 08/04 [facility] Outpatient Encounter [id number] Diagnos is: ICD-10- CM I10 Denise rawls (primar y) hypertVELVET Robbins 08/08 [facility] Outpatient Encounter [id number] 08/09 [facility] PH1 ASSMT&MGMT NQHP 11-20 [id number] [id number] Diagnos is: ICD-10- CM I10 Essenti al (primar y) hyperte VELVET Lopez 08/13 [facility] Outpatient Encounter [id number] 08/16 [facility] Outpatient Encounter [id number] 08/20 [facility] Outpatient Encounter [id number] 08/21 [facility] PT EDUCATION NOC INDIVID [id number] Diagnos is: ICD-10- CM Z04.9 Encount er for examina tion and observa tion for unsp reason MATTHEW RAMIREZ 08/22 [facility] Outpatient Encounter [id number] 08/24 [facility] OFFICE O/P EST MOD 30 MIN [id number] Diagnos is: ICD-10- CM E11.40 Type 2 diabete s mellitu s with diabeti c neuropa thy, unsp HIGINIO MCLAIN 08/24 [facility] Outpatient Encounter [id number] 08/27 [facility] Outpatient Encounter [id number] 08/27 [facility] Social History Combined list of available smoking, tobacco, and other social history from Department of Defense and Veterans Affairs facilities. Social History Type Response Date Comment Sour e Tobacco smoking status NHIS VA-TOBACCO USER EVERY DAY 05/01/2024 [facility] History of tobacco use VA-TOBACCO USE WI 30 MIN OF WAKEUP 05/01/2024 [facility] History of tobacco use VA-TOBACCO USER E VERY DAY 02/08/2023 [facility] History of tobacco use VA-TOBACCO USER E VERY DAY 09/08/2021 [facility] History of tobacco use VA-TOBACCO USER E VERY DAY 07/29/2020 [facility] History of tobacco use VA-TOBACCO USE MED NO 03/12/2019 [facility] History of tobacco use VA-TOBACCO USER E VERY DAY 02/02/2018 [facility] History of tobacco use TOBACCO USER OFFE RED MEDS 01/30/2018 [facility] History of tobacco use TOBACCO USER OFFE RED MEDS 08/01/2017 [facility] History of tobacco use CURRENT TOBACCO USER 01/28/2017 [facility] History of tobacco use CURRENT TOBACCO USER 08/12/2015 [facility] History of tobacco use CURRENT TOBACCO USER 11/28/2013 [facility] History of tobacco use CURRENT TOBACCO USER 01/08/2013 [facility] History of tobacco use TOBACCO OFFERRED PT MEDS (PROVIDER) 09/29/2011 [facility] History of tobacco use CURRENT TOBACCO USER 08/12/2010 [facility] History of tobacco use TOBACCO OFFERED P T MEDS (PROVIDER) 07/31/2009 [facility] History of tobacco use CURRENT TOBACCO USER 08/09/2008 [facility] History of tobacco use TOBACCO OFFERRED PT MEDS (PROVIDER) 11/03/2007 [facility] History of tobacco use TOBACCO OFFERED S [facility] 06/13/2007 [facility] History of tobacco use CURRENT TOBACCO USER 11/30/2006 [facility] History of tobacco use CURRENT TOBACCO USER 06/17/2006 [facility] History of tobacco use CURRENT TOBACCO USER 01/06/2006 [facility] History of tobacco use CURRENT TOBACCO USER 09/24/2005 [facility] History of tobacco use CURRENT NON-TOBAC CO USER-HX OF USE 01/29/2005 [facility] History of tobacco use CURRENT TOBACCO USER 03/24/2004 [facility] History of tobacco use CURRENT TOBACCO USER 05/10/2003 [facility] History of tobacco use CURRENT TOBACCO USER 12/14/2002 [facility] Plan of Care List of future care activities from [facility] facilities. Additional future care activities may be listed in the Assessment and Plan section. Date/Time Care Activity Care Activity Detail Facili ty 09/24/2024 AMBULATORY - MEDICINE AMBULATORY - MEDICI [facility] 11/01/2024 AMBULATORY - MEDICINE AMBULATORY - MEDICI [facility] 12/28/2024 AMBULATORY - MEDICINE AMBULATORY - MEDICI [facility] 01/16/2025 AMBULATORY - MEDICINE AMBULATORY - MEDICI [facility] 01/17/2025 AMBULATORY - MEDICINE AMBULATORY - MEDICI [facility] 07/18/2024 Procedure Order CP EKG STL CP EK G - STL Proc [facility] 08/24/2024 Consult Order VASCULAR SURG I CLAUDICATING/NON-HEALING ULCER OUTPT STL Cons [facility] [employer] Advance Directives List of completed, amended, or rescinded Advance Directives on record at [facility] facilities. An actual copy of the Directive is not included. Date Advance Directive Provider Source 09/17/2021 ADVANCE DIRECTIVE SHUBHAM JAMISON IS [facility] 10/20/2004 ADVANCE DIRECTIVE SAHIL WOLFE S [facility]
--- OUTSIDE RECORDS SUMMARY | 2024-08-28 18:23 | XMS_ITS | CONTINUITY OF CARE DOCUMENT ---
Author Name luciano wolf Address Unknown Organization [facility] Address [address] [place] [address] Phone [phone] Care Team Providers Care Professor Of Mechanical Engineering Name Role Phone Brock Olea MD Unavailable [phone] Brock Olea MD Unavailable [phone] INSURANCE PROVIDERS Payer name Policy type / Coverage type [place] red democrat ID [place] CC[place] [employer] Commercial insurance company [facility] [id number] [facility] Other [id number]
--- OUTSIDE RECORDS SUMMARY | 2024-08-28 18:23 | XMS_ITS | Encounter Summary ---
Author Name [facility] [facility] Address [address] [place] [address] Care Team Providers Care Kiln Drawer Name Role Phone CARMELLA STEPHEN Primary Care [...] PART A Dec 02, 2004 PART A [id number] GODWINJENNIFERRobert Agudelo PATIENT MEDICARE (WNR) MEDICARE (M) PART B Dec 02, 2004 PART B [id number] REKHA CONNELLY PATIENT MEDICARE (WNR) MEDICARE (M) PART A Dec 02, 2004 PART A [id number] [phone] GODWINJENNIFERRobert Agudelo PATIENT MEDICARE (WNR) MEDICARE (M) PART B Dec 02, 2004 PART B [id number] REKHA CONNELLY PATIENT Selected Encounter This section includes the information on record at [place] for the Encounter. Date/Time Encounter Type Encounter Description Reason Pro vider Source Jul 06, 2024 11:54 AM Outpatient Encounter COMMUNITY CARE CONSULT IHE Encounter Template Text not used by [place] Plan of Treatment: Future Appointments (+ 6 months) and Future Tests (+/- 45 days) The Plan of Treatment section includes future care activities for the patient from all [place] treatmentfacilities. This section includes future appointments and future orders which are active, pending or scheduled. Future Appointments This section includes appointments that were scheduled to occur 6 months from the date of the Encounter, up to a maximum of 20 appointments. The data comes from all [facility]. Appointment Date/Time Appointment Type Appointme nt Facility Name Jul 07, 2024 08:00 AM AMBULATORY - NONE [facility] Jul 09, 2024 01:00 PM AMBULATORY - MEDICINE [facility] Jul 17, 2024 11:00 AM AMBULATORY - MEDICINE [facility] Jul 18, 2024 11:00 AM AMBULATORY - MEDICINE [facility] Jul 20, 2024 12:30 PM AMBULATORY - MEDICINE [facility] Aug 22, 2024 11:00 AM AMBULATORY MEDICINE [facility] Aug 24, 2024 02:00 PM AMBULATORY MEDICINE [facility] Sep 24, 2024 02:00 PM AMBULATORY - MEDICINE [facility] November 01, 2024 03:00 PM AMBULATORY - MEDICINE [facility] Dec 28, 2024 02:00 PM AMBULATORY - MEDICINE [facility] Active, Pending, and Scheduled Orders This section includes a listing of several types of active, pending, and scheduled orders, including clinic medications orders, diagnostic test orders, procedure orders and consult orders; where the start date of the order is 45 days before the date of the Encounter or 45 days after the date of theEncounter. The data comes from all [facility]. Test Date/Time Test Type Test Details Facility Name Jul 03, 2024 03:14 PM Consult Order COMMUNITY CARE-GEC SKILLED HOME CARE STL Cons Appeals Writer's Choice [facility] Jul 09, 2024 12:00 AM Laboratory - Chemi stry Order PROTEIN URINE URINE YELLOW SP [facility] Jul 09, 2024 12:00 AM Laboratory - Chemi stry Order MICRAL/CREAT PROFILE (STL) URINE YELLOW SP [facility] Jul 18, 2024 10:57 AM Procedure Order CP EKG STL CP EKG - STL Proc Appeals Writer's Choice [facility] Lab Results: +/- 30 days of the encounter This section includes the Chemistry and Hematology Lab Results on record with [place] for the patient. Radiology Reports and Pathology Reports are provided separately, in subsequent sections. Lab Results This section contains the Chemistry/Hematology Results that were resulted 30 days before or 30 daysafter the date of the Encounter. Date/Time Source Result Type Result - Unit Interpretation Reference Range Comment Jul 20, 2024 01:17 PM [facility] VITAMIN D, 25-HYDROXY Specimen Type: SERUM No comment entered. Ordering Provider: Pricila MOLINA Report Released Date/Time: Jul 09, 2024 02:40 PM Reporting Lab: [address] [address] Performing Lab: [address] [address] VITAMIN D, 25-HYDROXY 37.1 ng/mL 30-96 Jul 20, 2024 01:17 PM [facility] PTH, INTACT (STL) Specimen Type: SERUM No comment entered. Ordering Provider: Pricila MOLINA Report Released Date/Time: Jul 09, 2024 02:40 PM Reporting Lab: [address] [address] Performing Lab: [address] [address] PTH, INTACT (STL) 89.50 pg/mL H 8.7-77.7 Jul 20, 2024 01:17 PM [facility] RENAL PANEL Specimen Type: PLASMA Comment: No hemolysis noted. Ordering Provider: Pricila MOLINA Report Released Date/Time: Jul 09, 2024 02:40 PM Reporting Lab: [address] [address] Performing Lab: [address] [address] CREATININE 3.88 mg/dL H 0.7-1.3 UREA NITROGEN 53.0 mg/dL H 9.0-25.0 GLUCOSE 220 mg/dL H 72-99 SODIUM 136 meq/L 136-145 POTASSIUM 4.3 meq/L 3.5-5 CHLORIDE 98 meq/L 98-107 CARBON DIOXIDE 27 meq/L 22-31 CALCIUM 9.8 mg/dL 8.4-10.4 PHOSPHOROUS 3.3 mg/dL 2.3-4.7 ALBUMIN 3.7 g/dL 3.4-5 EGFR (CKD-EPI 2020) 14.6 LL >60 Jul 20, 2024 01:17 PM [facility] CBC Specimen Type: BLOOD No comment entered. Ordering Provider: Pricila MOLINA Report Released Date/Time: Jul 09, 2024 02:40 PM Reporting Lab: [address] [address] Performing Lab: [address] [address] WBC 8.4 10*3/uL 3.6-11.2 RBC 3.84 10*6/uL [...] 0.00-0.20 Jul 20, 2024 01:16 PM [facility] IRON/TIBC PROFILE Specimen Type: SERUM No comment entered. Ordering Provider: Pricila MOLINA Report Released Date/Time: Jul 20, 2024 12:55 PM Reporting Lab: [facility] [address] [facility] [address] Performing Lab: [address] [address] TIBC 308 ug/dL 250-450 TRANSFERRIN 246 mg/dL 163-344 IRON SATURATION 55 H 20-50 IRON 169 ug/dL 65-175 Jul 20, 2024 01:16 PM [facility] FERRITIN Specimen Type: SERUM No comment entered. Ordering Provider: Pricila MOLINA Report Released Date/Time: Jul 20, 2024 12:55 PM Reporting Lab: [facility] [address] [facility] [address] Performing Lab: [address] [address] FERRITIN 400.00 ng/mL H 22-275 Jul 20, 2024 01:16 PM [facility] MAGNESIUM Specimen Type: PLASMA No comment entered. Ordering Provider: Pricila MOLINA Report Released Date/Time: Jul 20, 2024 12:56 PM Reporting Lab: [facility] [address] [place] [address] Performing Lab: [address] [address] MAGNESIUM 1.9 mg/dL 1.6-2.6 Social History: Smoking Status (Most current) and Tobacco Use (All prior to encounter date) This section includes the most current, and the historical, smoking and tobacco- related health factors from the [place] facility where the Encounter took place. Current Smoking Status This section includes the most current smoking, or tobacco-related health factor, from the [place] facility where the Encounter took place. Date/Time Current Smoking Status Comment Octavio ity May 01, 2024 03:41 PM VA-TOBACCO USER EVERY DAY [facility] Tobacco Use History This section includes a history of the smoking, or tobacco-related health factors, that were collected on or before the date of the Encounter. The data comes from the [place] facility where the Encounter took place. 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 [facility] May 01, 2024 03:41 PM VA-TOBACCO USE MED NO [facility] May 01, 2024 03:41 PM VA-TOBACCO USE WI 30 MIN OF WAKEUP [facility] May 01, 2024 03:41 PM VA-TOBACCO USER EVERY DAY [facility] Jul 29, 2020 01:06 PM VA-TOBACCO USE 30 YEARS OR MORE [facility] Jul 29, 2020 01:06 PM VA-TOBACCO USE ADVICE [facility] Jul 29, 2020 01:06 PM 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 [facility] Jul 29, 2020 01:06 PM VA-TOBACCO USE MED NO [facility] Jul 29, 2020 01:06 PM VA-TOBACCO USE WI 30 MIN OF WAKEUP [facility] Jul 29, 2020 01:06 PM VA-TOBACCO USER EVERY DAY [facility] Jan 06, 2006 10:38 AM CURRENT TOBACCO USER [facility] Jan 06, 2006 10:38 AM SMOKER 10-20 [facility] Jan 06, 2006 10:38 AM TOBACCO CONTEMPLATION STAGE [facility] May 10, 2003 08:36 AM CURRENT TOBACCO USER [facility] May 10, 2003 08:36 AM TOBACCO USE [facility] Dec 14, 2002 07:49 [address] [facility] [facility] Dec 14, 2002 07:[address] Advance Directives: All historical and current Section Date Range: From patient's date of to the date document was created. This section includes ALL of a patient's completed or amended [place] Advance and Rescinded Directives. The entries below indicate that a directive exists for the patient, but an actual copy is not included with this document. The data comes from all [place] facilities. Date Advance Directives Provider Source Sep 17, [address] Oct 20, 2004 ADVANCE DIRECTIVE SAHIL WOLFE S [facility] Encounter Notes: All associated encounter notes This section contains the clinical notes associated to the Encounter. Date/Time Encounter Note(s) Provider Source Jul 06, 2024 11:54 AM NONVA NOTE: LOCAL TITLE: COMMUNITY CARE-CARE COORDINATION PLAN NOTE [address] TITLE: NONVA NOTE DATE OF NOTE: JUL 06, 2024@11:54 ENTRY DATE: JUL 06, 2024@11:54:50 AUTHOR: EMANUEL CARRERA EXP COSIGNER: URGENCY: STATUS: COMPLETED THE PATIENT HAS BEEN REFERRED TO THE FOLLOWING SERVICES HOME CARE SERVICES: Community skilled home health care SN/WC, PT, OT - in accordance with [place] Standardized Episode of Care (SEOC) HOME CARE SERVICE FUNDING: [place]: [employer] NAME OF AGENCY TO PROVIDE CARE: [address] [address] P: [phone] F: [phone] DURATION OF CARE (Non-Hospice Services): 120 DAYS OR WHENEVER PATIENT GOALS ARE MET, WHICHEVER COMES FIRST Date service is projected to start: 07/07/24 End service date: 09/04/24 (VA consults terminate automatically after 120 days) *Please send all correspondence/orders to be signed to: DR CARMELLA STEPHEN P# F# PLAN: New Services-Transition to Skilled Home Health Services. Helpful phone numbers: MELVIN [facility] Filter Plant Supervisor [facility] Email: [email or web address] EMANUEL CARRERA RN Patient Care Service, Care in the Community Unit Signed: 07/06/2024 11:58 EMANUEL CARRERA [facility]
--- OUTSIDE RECORDS SUMMARY | 2024-08-28 18:23 | XMS_ITS | Encounter Summary ---
Author Name [facility] [place] [facility] [place] Address [address] [place] [address] Care Team Providers Care Organizational Psychologist Name Role Phone PITERCARMELLA Shultz Primary Care [...] PART A Dec 02, 2004 PART A [id number] GODWINREKHA Jammie PATIENT MEDICARE (WNR) MEDICARE (M) PART B Dec 02, 2004 PART B [id number] GODWINJENNIFERRobert Agudelo PATIENT MEDICARE (WNR) MEDICARE (M) PART A Dec 02, 2004 PART A [id number] [phone] GODWINREKHA Jammie PATIENT MEDICARE (WNR) MEDICARE (M) PART B Dec 02, 2004 PART B [id number] REKHA TRINH PATIENT Selected Encounter This section includes the information on record at [place] for the Encounter. Date/Time Encounter Type Encounter Description Reason Pro vider Source Aug 27, 2024 02:02 PM Outpatient Encounter ADMIN PAT ACTIVTIES (MASNONCT) IHE Encounter Template Text not used by [place] Plan of Treatment: Future Appointments (+ 6 months) and Future Tests (+/- 45 days) The Plan of Treatment section includes future care activities for the patient from all [place] treatmentfacilities. This section includes future appointments and future orders which are active, pending or scheduled. Future Appointments This section includes appointments that were scheduled to occur 6 months from the date of the Encounter, up to a maximum of 20 appointments. The data comes from all [place] treatment facilities. Appointment Date/Time Appointment Type Appointme nt Facility Name Sep 24, 2024 02:00 PM AMBULATORY - MEDICINE [facility] November 01, 2024 03:00 PM AMBULATORY - MEDICINE [facility] Dec 28, 2024 02:00 PM AMBULATORY - MEDICINE [facility] Jan 16, 2025 02:00 PM AMBULATORY - MEDICINE [facility] Jan 17, 2025 02:30 PM AMBULATORY - MEDICINE [facility] Active, Pending, and Scheduled Orders This section includes a listing of several types of active, pending, and scheduled orders, including clinic medications orders, diagnostic test orders, procedure orders and consult orders; where the start date of the order is 45 days before the date of the Encounter or 45 days after the date of theEncounter. The data comes from all [facility]. Test Date/Time Test Type Test Details Facility Name Jul 18, 2024 10:57 AM Procedure Order CP EKG STL CP EKG - STL Proc General Education Professor's [facility] Aug 24, 2024 06:19 PM Consult Order VASCULAR S URG I CLAUDICATING/NON-HEALING ULCER OUTPT STL [facility] Lab Results: +/- 30 days of the encounter This section includes the Chemistry and Hematology Lab Results on record with [place] for the patient. Radiology Reports and Pathology Reports are provided separately, in subsequent sections. Lab Results This section contains the Chemistry/Hematology Results that were resulted 30 days before or 30 daysafter the date of the Encounter. Date/Time Source Result Type Result - Unit Interpretation Reference Range Comment Aug 24, 2024 03:20 PM [facility] HGA1C Specimen Type: BLOOD No comment entered. Ordering Provider: SHAHRZAD MCLAIN Report Released Date/Time: Aug 24, 2024 02:51 PM Reporting Lab: [facility] [phone] Performing Lab: [facility] [phone] HGA1C 8.4 H 4.0-6.0 Aug 24, 2024 03:20 PM [facility] BASIC METABOLIC PANEL Specimen Type: PLASMA Comment: No hemolysis noted. Ordering Provider: SHAHRZAD MCLAIN Report Released Date/Time: Aug 24, 2024 02:51 PM Reporting Lab: [facility] [phone] Performing Lab: [facility] [phone] CREATININE 2.55 mg/dL H 0.70-1.30 UREA NITROGEN [...] and tobacco- related health factors from the [place] facility where the Encounter took place. Current Smoking Status This section includes the most current smoking, or tobacco-related health factor, from the [place] facility where the Encounter took place. Date/Time Current Smoking Status Comment Octavio enamorado May 01, 2024 03:41 PM VA-TOBACCO USER EVERY DAY [facility] Tobacco Use History This section includes a history of the smoking, or tobacco-related health factors, that were collected on or before the date of the Encounter. The data comes from the [place] facility where the Encounter took place. 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 [facility] May 01, 2024 03:41 PM VA-TOBACCO USE MED NO [facility] May 01, 2024 03:41 PM VA-TOBACCO USE WI 30 MIN OF WAKEUP [facility] May 01, 2024 03:41 PM VA-TOBACCO USER EVERY DAY [facility] Jul 29, 2020 01:06 PM VA-TOBACCO USE 30 YEARS OR MORE [facility] Jul 29, 2020 01:06 PM VA-TOBACCO USE ADVICE [facility] Jul 29, 2020 01:06 PM VA-TOBACCO USE STEEL HEATER NO [facility] Jul 29, 2020 01:06 PM VA-TOBACCO USE MED NO [facility] Jul 29, 2020 01:06 PM VA-TOBACCO USE WI 30 MIN OF WAKEUP [facility] Jul 29, 2020 01:06 PM VA-TOBACCO USER EVERY DAY [facility] Jan 06, 2006 10:38 AM CURRENT TOBACCO USER [facility] Jan 06, 2006 10:38 AM SMOKER 10-20 [facility] Jan 06, 2006 10:38 AM TOBACCO CONTEMPLATION STAGE [facility] May 10, 2003 08:36 AM CURRENT TOBACCO USER [facility] May 10, 2003 08:36 AM TOBACCO USE [facility] Dec 14, 2002 07:49 AM CURRENT TOBACCO USER [facility] Dec 14, 2002 07:49 AM TOBACCO USE [facility] Advance Directives: All historical and current Section Date Range: From patient's date of to the date document was created. This section includes ALL of a patient's completed or amended VA Advance and Rescinded Directives. The entries below indicate that a directive exists for the patient, but an actual copy is not included with this document. The data comes from all [place] facilities. Date Advance Directives Provider Source Sep 17, 2021 ADVANCE DIRECTIVE SHUBHAM JAMISON IS [facility] Oct 20, 2004 ADVANCE DIRECTIVE SAHIL WOLFE S [facility] Encounter Notes: All associated encounter notes This section contains the clinical notes associated to the Encounter. Date/Time Encounter Note(s) Provider Source Aug 27, 2024 02:02 PM ADMINISTRATIVE NOT E: LOCAL TITLE: SCHEDULING NOTE STL STANDARD TITLE: ADMINISTRATIVE NOTE DATE OF NOTE: AUG 27, 2024@14:02 ENTRY DATE: AUG 27, 2024@14:02:55 AUTHOR: ROMANA TERRY EXP COSIGNER: URGENCY: STATUS: COMPLETED Minimum Scheduling attempts to contact the [facility] have been made. RTC/Appt/Consult request will be discontinued after 14 days. Clinic: -VASCULAR SURGERY TUESDAY I JORGE [facility]: Aug First Call to - unsuccessful scheduling: Aug Unable to contact [facility], letter sent: Aug Discontinue date (14 calendar days after letter is mailed): Sep ADDITIONAL RESULTS FROM SCHEDULING ATTEMPTS: /michael/ ROMANA TERRY ADVANCED TOBACCO PACKER Signed: 08/27/2024 14:03 ROMANA TERRY [facility] Aug 27, 2024 02:02 PM PHYSICIAN LETTERS: LOCAL TITLE: NO CONTACT LETTER STL STANDARD TITLE: PHYSICIAN LETTERS DATE OF NOTE: AUG 27, 2024@14:02 ENTRY DATE: AUG 27, 2024@14:02:09 AUTHOR: ROMANA TERRY EXP COSIGNER: URGENCY: STATUS: COMPLETED [facility] [address] [place] [address] AUG 27, 2024 YOANA TRINH [address] [place] [address] Dear Yoana Trinh, Thank you for choosing the [facility] as your primary choice for health care. As a partner in your health care, we are attempting to contact you because we have been unsuccessful in reaching you by phone to schedule your clinic appointment. Please call us at [phone], extension [phone] to speak to us regarding making an appointment in the [facility] clinic. Your good health is important to us. Please contact us within 2 weeks from the date of this letter. If we do not hear from you, we will notify your referring provider and a new referral will be required to schedule an appointment. IMPORTANT: Due to COVID-19 we have greatly expanded our telehealth options, please contact the clinic to inquire about scheduling. Sincerely, ROMANA TERRY ADVANCED TOBACCO PACKER YOANA TRINH,ROMANA Rasmussen [facility]
--- OUTSIDE RECORDS SUMMARY | 2024-08-28 18:23 | XMS_ITS ---
Author Name [facility] [place] Address [address] [place] [address] Care Team Providers Care Stogy Maker Name Role Phone HAILEE CARMELLA Primary Care [...] PART A Dec 02, 2004 PART A [id number] GODWINREKHA Jammie PATIENT MEDICARE (WNR) MEDICARE (M) PART B Dec 02, 2004 PART B [id number] GODWINJENNIFERRobert Agudelo PATIENT MEDICARE (WNR) MEDICARE (M) PART B Dec 02, 2004 PART B [id number] GODWINREKHA Jammie PATIENT MEDICARE (WNR) MEDICARE (M) PART A Dec 02, 2004 PART A [id number] REKHA CONNELLY PATIENT Selected Encounter This section includes the information on record at [place] for the Encounter. Date/Time Encounter Type Encounter Description Reason Pro vider Source Jul 09, 2024 12:30 PM Outpatient Encounter RENAL/NEPHROL(EXCEPT DIALYSIS) IHE Encounter Template Text not used by [place] Plan of Treatment: Future Appointments (+ 6 months) and Future Tests (+/- 45 days) The Plan of Treatment section includes future care activities for the patient [facility] [place] [facility] This section includes future appointments and future orders which are active, pending or scheduled. Future Appointments This section includes appointments that were scheduled to occur 6 months from the date of the Encounter, up to a maximum of 20 appointments. The data comes from all [place] treatment [facility]. Appointment Date/Time Appointment Type Appointme nt Facility Name Jul 17, 2024 11:00 AM AMBULATORY - MEDICINE [facility] Jul 18, 2024 11:00 AM AMBULATORY - MEDICINE [facility] Jul 20, 2024 12:30 PM AMBULATORY - MEDICINE [facility] Aug 22, 2024 11:00 AM AMBULATORY - MEDICINE [facility] Aug 24, 2024 02:00 PM AMBULATORY - MEDICINE [facility] Sep 24, 2024 02:00 PM AMBULATORY - MEDICINE [facility] November 01, 2024 03:00 PM AMBULATORY - MEDICINE [facility] Dec 28, 2024 02:00 PM AMBULATORY - MEDICINE [facility] Active, Pending, and Scheduled Orders This section includes a listing of several types of active, pending, and scheduled orders, including clinic medications orders, diagnostic test orders, procedure orders and consult orders; where the start date of the order is 45 days before the date of the Encounter or 45 days after the date of theEncounter. The data comes from all [facility]. Test Date/Time Test Type Test Details Facility Name Jul 03, 2024 03:14 PM Consult Order [facility] SK[facility] CARE STL Cons Stenciling Machine Tender's Choice [facility] Jul 09, 2024 12:00 AM Laboratory - Chemi stry Order PROTEIN URINE URINE YELLOW SP [facility] Jul 09, 2024 12:00 AM Laboratory - Chemi stry Order MICRAL/CREAT PROFILE (STL) URINE YELLOW SP [facility] Jul 18, 2024 10:57 AM Procedure Order CP EKG STL CP EKG - STL Proc Stenciling Machine Tender's Choice [facility] Lab Results: +/- 30 days of the [...] Range Comment Jul 20, 2024 01:[address] [facility] VITAMIN D, 25-HYDROXY Specimen Type: SERUM No comment entered. Ordering Provider: Pricila MOLINA Report Released Date/Time: Jul 09, 2024 02:40 PM Reporting Lab: [address] [address] Performing Lab: [address] [address] VITAMIN D, 25-HYDROXY 37.1 ng/mL 30-96 Jul 20, 2024 01:[address] [facility] PTH, INTACT (STL) Specimen Type: SERUM No comment entered. Ordering Provider: Pricila MOLINA Report Released Date/Time: Jul 09, 2024 02:40 PM Reporting Lab: [address] [address] Performing Lab: [address] [address] PTH, INTACT (STL) 89.50 pg/mL H 8.7-77.7 Jul 20, 2024 01:[address] [facility] RENAL PANEL Specimen Type: PLASMA Comment: No hemolysis noted. Ordering Provider: Pricila MOLINA Report Released Date/Time: Jul 09, 2024 02:40 PM Reporting Lab: [address] [address] Performing Lab: [facility] [address] [facility] [address] CREATININE 3.88 mg/dL H 0.7-1.3 UREA NITROGEN 53.0 mg/dL H 9.0-25.0 GLUCOSE 220 mg/dL H 72-99 SODIUM 136 meq/L 136-145 POTASSIUM 4.3 meq/L 3.5-5 CHLORIDE 98 meq/L 98-107 CARBON DIOXIDE 27 meq/L 22-31 CALCIUM 9.8 mg/dL 8.4-10.4 PHOSPHOROUS 3.3 mg/dL 2.3-4.7 ALBUMIN 3.7 g/dL 3.4-5 EGFR (CKD-EPI 2020) 14.6 LL >60 Jul 20, 2024 01:[address] [facility] CBC Specimen Type: BLOOD No comment entered. Ordering Provider: Pricila MOLINA Report Released Date/Time: Jul 09, 2024 02:40 PM Reporting Lab: [facility] [address] [facility] [address] Performing Lab: [address] [address] WBC 8.4 10*3/uL 3.6-11.2 RBC 3.84 10*6/uL [...] 10*3/uL 0.00-0.20 Jul 20, 2024 01:[address] [facility] FERRITIN Specimen Type: SERUM No comment entered. Ordering Provider: Pricila MOLINA Report Released Date/Time: Jul 20, 2024 12:55 PM Reporting Lab: [address] [address] Performing Lab: [address] [address] FERRITIN 400.00 ng/mL H 22-275 Jul 20, 2024 01:[address] [facility] IRON/TIBC PROFILE Specimen Type: SERUM No comment entered. Ordering Provider: Pricila MOLINA Report Released Date/Time: Jul 20, 2024 12:55 PM Reporting Lab: [address] [address] Performing Lab: [address] [address] TIBC 308 ug/dL 250-450 TRANSFERRIN 246 mg/dL 163-344 IRON SATURATION 55 H 20-50 IRON 169 ug/dL 65-175 Jul 20, 2024 01:[address] [facility] MAGNESIUM Specimen Type: PLASMA No comment entered. Ordering Provider: Pricila MOLINA Report Released Date/Time: Jul 20, 2024 12:56 PM Reporting Lab: [address] [address] Performing Lab: [address] [address] MAGNESIUM 1.9 mg/dL 1.6-2.6 Social History: Smoking [...] Date/Time Current Smoking Status Comment Facil ity May 01, 2024 03:41 PM VA-TOBACCO USER EVERY DAY [facility] Tobacco Use History This section includes a history of the smoking, or tobacco-related health factors, that were collected on or before the date of the Encounter. The data comes from the [place] facility where the Encounter took place. Date/Time Smoking Status/Tobacco Use Comment David acramiro May 01, 2024 03:41 PM VA-TOBACCO USE ADVICE [facility] May 01, 2024 03:41 PM VA-TOBACCO USE FOOD OR BAGGAGE HANDLING RAMPMAN NO [facility] May 01, 2024 03:41 PM VA-TOBACCO USE MED NO [facility] May 01, 2024 03:41 PM VA-TOBACCO USE WI [address] [facility] May 01, 2024 03:41 PM VA-TOBACCO USER EVERY DAY [facility] Jul 29, 2020 01:06 PM VA-TOBACCO USE [address] [facility] Jul 29, 2020 01:06 PM VA-TOBACCO USE ADVICE [facility] Jul 29, 2020 01:06 PM VA-TOBACCO USE FOOD OR BAGGAGE HANDLING RAMPMAN NO [facility] Jul 29, 2020 01:06 PM VA-TOBACCO USE MED NO [facility] Jul 29, 2020 01:06 PM VA-TOBACCO USE WI [address] [facility] Jul 29, 2020 01:06 PM VA-TOBACCO USER EVERY DAY [facility] Jan 06, 2006 10:38 AM CURRENT TOBACCO USER [facility] Jan 06, 2006 10:38 AM SMOKER 10-20 [facility] Jan 06, 2006 10:[address]CO CONTEM[address]ATION [address]AGE [facility] May 10, 2003 08:36 AM CURRENT TOBACCO USER [facility] May 10, 2003 08:36 AM TOBACCO USE [facility] Dec 14, 2002 07:49 AM CURRENT TOBACCO USER [facility] Dec 14, 2002 07:[address] [facility] Advance Directives: All historical and current Section Date Range: From patient's date of to the date document was created. This section includes ALL of a patient's completed or amended [place] Advance and Rescinded Directives. The entries below indicate that a directive exists for the patient, but an actual copy is not included with this document. The data comes from all [place] facilities. Date Advance Directives Provider Source Sep 17, 2021 ADVANCE DIRECTIVE SHUBHAM JAMISON IS [facility] Oct 20, 2004 ADVANCE DIRECTIVE SAHIL WOLFE S [facility]
== END 2024-08-28 17:37 | disposition home or self-care (01) ==
PROVIDERS: Emergency Provider Emergency Medicine
DX: S80.01XA Contusion of right knee, initial encounter (principal); W19.XXXA Unspecified fall, initial encounter; G62.9 Polyneuropathy, unspecified; Z79.82 Long term (current) use of aspirin; E78.5 Hyperlipidemia, unspecified; E11.9 Type 2 diabetes mellitus without complications; K21.9 Gastro-esophageal reflux disease without esophagitis; I10 Essential (primary) hypertension; F17.210 Nicotine dependence, cigarettes, uncomplicated
CPT/HCPCS: 70450; 72125; 73562; 99284